=== PATIENT | female | born 1950 | race Caucasian/White ===

== ENCOUNTER 2020-05-03 12:28 | Emergency (ER) | payer MEDICARE, SELFPAY ==
[2020-05-03 12:48] VITALS: BP 140/51; BP 159/52; PULSE 94; RESP 18; TEMP 36.3; O2SAT 93; O2SAT 99; BMI 35.2
--- NOTE | 2020-05-03 12:50 | XR_ITS ---
EXAMINATION: XR CHEST CLINICAL INFORMATION: Cough. COMPARISON: None TECHNIQUE: Frontal view of the chest was obtained. FINDINGS: The lungs are well-expanded with scattered patchy opacities seen in both lungs most prominent in the right upper, right lower lobe and left lower lobe. There is haziness right lung base likely from effusion and underlying atelectasis. Heart size and pulmonary vascularity is normal. No gross bony abnormality seen. XR/XR chest 1V IMPRESSION: Diffuse patchy opacity in both lobes slightly greater on the right with likely right lower lobe effusion and/or atelectasis.
[2020-05-03 14:05] LABS: OBS Int Ctl Valid YES; OBS1 POS (NEG)
[2020-05-03 14:15] LABS: Hematocrit 24.3 % (37-47); Hemoglobin 7.1 g/dl (12.0-16.0); Mean Corpuscular HGB Conc 29.2 g/dl (31.0-35.0); Mean Corpuscular Hemoglobin 30.5 pg (27.0-33.0); Mean Corpuscular Volume 104.3 fL (80-98); Mean Platelet Volume 10.1 fL (9.4-12.3); Platelet Count 235 X10*3/uL (160-400); Red Blood Count 2.33 X10*6/uL (4.20-5.50); Red Cell Distribution Width 17.2 % (11.0-16.0); White Blood Count 8.8 X10*3/uL (4.8-10.8)
[2020-05-03 14:44] LABS: Alanine Aminotransferase 16 U/L (0-31); Albumin Level 2.5 g/dL (3.5-5.0); Alkaline Phosphatase 73 U/L (39-117); Anion Gap 10 (12-20); Aspartate Amino Transferase 11 U/L (5-31); Bilirubin Total 0.2 mg/dL (0.0-1.0); Blood Urea Nitrogen 46 mg/dL (9-16); Calcium 8.1 mg/dL (8.4-10.2); Carbon Dioxide 31 mmol/L (22-29); Chloride 108 mmol/L (96-108); Creatinine Clr Calc Pharmacy 19.9; Estimated Glomerular Filt Rate 17; Glucose Random 77 mg/dL (60-115); Potassium 4.1 mmol/l (3.3-5.1); Sodium 145 mmol/L (135-145); Total Protein 5.6 g/dL (6.5-8.0)
[2020-05-03 14:48] LABS: B Type Natriuretic Peptide 89 pg/mL (<100)
[2020-05-03 14:53] LABS: Band Neutrophils Percent 3 % (3-5); Basophils Abs Manual 0.1 X10*3/uL (0.0-0.3); Basophils Percent Manual 1 % (0-1); Eosinophils Absolute Manual 0.2 X10*3/UL (0.0-0.8); Eosinophils Percent Manual 2 % (0-4); Lymphocytes Absolute Manual 0.4 X10*3/uL (0.6-4.8); Lymphocytes Percent Manual 4 % (20-40); Metamyelocytes Absolute 0.3 X10*3/uL; Metamyelocytes Percent 3 %; Monocytes Absolute Manual 0.6 X10*3/uL (0.0-1.2); Monocytes Percent Manual 7 % (2-11); Myelocytes Absolute 0.1 X10*/uL; Myelocytes Percent 1 %; Neutrophils Absolute Manual 7.2 X10*3/uL (2.2-7.9); Neutrophils Percent Manual 79 % (45-73)
[2020-05-03 14:58] LABS: Basophilic Stippling 1+
[2020-05-03 14:59] LABS: RBC Morphology NOTED
[2020-05-03 15:00] LABS: Platelet Estimate NORMAL (NORMAL); Platelet Morphology Comment NORMAL
[2020-05-03 16:07] VITALS: BP 134/50; PULSE 87; RESP 19; TEMP 36.9
[2020-05-03 16:14] VITALS: BP 134/50; PULSE 87; RESP 20; TEMP 36.9; O2SAT 92
[2020-05-03 16:24] VITALS: BP 139/51; PULSE 85; RESP 18; TEMP 36.6
[2020-05-03 16:55] LABS: Troponin-I High Sensitivity 6.2 ng/L (<3.5-17.0)
[2020-05-03 17:15] VITALS: BP 125/56; PULSE 87; RESP 18; TEMP 36.5
[2020-05-03] MEDS: Albuterol Sulfate 90 MCG 8 GM INHALER 4 PUFF INHALE (17:20)
[2020-05-03 18:33] LABS: Hematocrit 28.5 % (37-47); Hemoglobin 8.4 g/dl (12.0-16.0); Mean Corpuscular HGB Conc 29.5 g/dl (31.0-35.0); Mean Corpuscular Hemoglobin 29.7 pg (27.0-33.0); Mean Corpuscular Volume 100.7 fL (80-98); Mean Platelet Volume 9.6 fL (9.4-12.3); Platelet Count 236 X10*3/uL (160-400); Red Blood Count 2.83 X10*6/uL (4.20-5.50); Red Cell Distribution Width 17.7 % (11.0-16.0); White Blood Count 10.1 X10*3/uL (4.8-10.8)
--- NOTE | 2020-05-03 19:00 | ED_ITS ---
HPI - Recheck/Abnormal Lab/Rx General Chief Complaint: Recheck/Abnormal Lab/Rx Stated Complaint: abnormal labs Time Seen by Provider: 05/03/20 12:49 Source: EMS Mode of arrival: EMS Limitations: no limitations History of Present Illness HPI narrative: This is a 70-year-old female [facility] has history of COPD with chronic hypoxic respiratory failure on oxygen, obstructive sleep apnea, chronic diastolic heart failure, chronic kidney disease stage 4 with chronic anemia, hypertension, diabetes, gastroesophageal reflux disease and most recently admitted to [facility] at the beginning of April 10 through 1273 COVID-19 related hypoxic/respiratory failure with acute AFib with R VR precipitated by COVID-19 and resolved she was treated there and subsequently recovered went to short-term rehab to [facility] where she is and has been there for past 1 week. States she was overall doing well and were past couple days has gradually just felt overall more weak as if she is anemic again. She has required transfusions in the past. She states she had a ?normal? bowel movement this morning describes as formed brown stool. She denies any chest pain, shortness of breath, abdominal pain, nausea vomiting or diarrhea. No other bleeding it does not appear to be on anticoagulants. She had routine CBC done at the facility today showed a hemoglobin 6.7 over hematocrit of 23. She is normally at 7.5/25. Related Data Allergies Allergy/AdvReac Type Severity Reaction Status Date / Time exenatide [From Byetta] Allergy Unknown Verified 05/03/20 12:48 gabapentin Allergy Unknown Verified 05/03/20 12:47 glipizide Allergy Depression Verified 05/03/20 12:48 metformin Allergy Unknown Verified 05/03/20 12:48 simvastatin [From Zocor] Allergy Unknown Verified 05/03/20 12:48 zolpidem [From Ambien] Allergy Unknown Verified 05/03/20 12:48 Review of Systems Review of Systems: Constitutional: No Weight loss, No Fever, No Chills, No Night Sweats, No Fatigue, No Malaise ENT/Mouth: No Hearing loss, No Ear Pain, No Nasal Congestion, No Sinus Pain, No Hoarseness, No sore throat, No Rhinorrhea, No Swallowing Difficulty Eyes: No Eye Pain, No Swelling, No Redness, No Foreign Body, No Discharge, No Vision Changes Cardiovascular: No Chest Pain, No SOB, No Dyspnea on Exertion, No Orthopnea, No Edema, No Palpitations Respiratory: No Cough, No Sputum, No Wheezing, No Smoke Exposure, No Dyspnea Gastrointestinal: No Nausea, No Vomiting, No Diarrhea, No Constipation, No abdominal Pain, No Hematochezia, No Melena Genitourinary: no irregular bleeding, No Dysuria, No Urinary Frequency, No Hematuria, No Urinary Incontinence, No Urgency, No Flank Pain Musculoskeletal: No joint pain, No Myalgias, No Joint Swelling Skin: No Skin Lesions, No rash Neuro: + Weakness, No Numbness, No Paresthesias, No Loss of Consciousness, No Dizziness, No Headache Psych: No Social Issues Heme/Lymph: No Bruising, No Bleeding,No Lymphadenopathy Endocrine: No Polyuria, No Polydipsia, No Temperature Intolerance Yes all other systems are reviewed and are negative [facility] Past Medical History Medical History (Updated 05/03/20 @ 19:24 by Erasmo Ham NP) Acute kidney failure Anemia Atrial fibrillation Chronic kidney disease (CKD) COPD (chronic obstructive pulmonary disease) COVID-19 Diabetes GERD (gastroesophageal reflux disease) Hyperlipidemia Hypernatremia Hypokalemia Hypotension Morbid obesity Obstructive sleep apnea Spontaneous ecchymosis Viral pneumonia Social History Social History Smoked in Last 30 Days: No Use of substances other than those prescribed or required for medical reasons: No Advance Directives: No Advance Directives Information Provided: No Physical Exam Vital Signs: Vital Signs: Last Vital Signs Temp 97.7 F 05/03/20 17:15 Pulse 87 05/03/20 17:15 Resp 18 05/03/20 17:15 BP 125/56 L 05/03/20 17:15 Pulse Ox 92 05/03/20 16:14 Body Mass Index 35.2 Reviewed Const: Other: Appears older than stated age, obese General: cooperative; No acute distress or intoxicated appearing Nutritional Appearance: average body habitus Orientation/consciousness: patient oriented x3 HENMT: Head: Yes normal to inspection Ears: hearing grossly normal bilat erally Eyes: General: appearance normal, both eyes and all related structures Visual Treviño: normal visual treviño by confrontation Neck: Neck: Yes normal visual inspection and No tender Thyroid: Thyroid normal Chest: Chest palpation & inspection: normal inspection of the chest Resp: Effort & Inspection: normal respiratory effort Auscultation: clear to auscultation bilaterally Cardio: Jugular venous distension: no JVD Rhythm: regular rhythm Heart sounds: S1 normal heart sound present and S2 normal heart sound present GI: Inspection: Yes normal to inspection Percussion: Yes normal to percussion Auscultation: normal bowel sounds : General: Yes no CVA tenderness Back/Spine/Pelvis: Back: no CVA tenderness Skin: General skin exam: no rashes or lesions noted Neuro: General: patient oriented x3 Extrem: General: Yes normal to inspection Course Course Course Narrative: Will get confirmatory CBC. Check electrolytes EKG, cardiac enzyme. She appears in no distress. She denies any pain or discomfort. Occult stool done at bedside color was around. There is no overt bleeding. It was weakly positive. Sent to lab for analysis. Plan and findings reviewed Reevaluation(s) Reevaluation #1: Repeat CBC 7 0.05/23 given her some symptomatic will go ahead and transfuse her with 1 unit of blood and repeat. Reevaluation #2: Received gradual 1 unit of blood over 3-1/2 hours tolerated this very well. No signs or symptoms of fluid overload. She reports she feels ?great?. No other complaints. Repeat CBC at 18:21 shows hemoglobin of 8.4 over hematocrit of 28.5. At this point she feels better she is at baseline. Offers no other complaints. Will discharge back to the facility refer to GI for possible scope. MDM - Recheck/Abnormal Lab/Rx MDM Narrative Medical decision making narrative: Copies of labs will be) for facility with return. Medical Records Attestation: I reviewed the patient's medical records. Lab Data Attestation: I reviewed the patient's lab results. Lab results narrative: Medical records requested from [facility] 15 pages of transfer summary were all read by me/reviewed. And sign to be processed for medical records. Result diagrams: 05/03/20 18:21 05/03/20 13:59 Labs: Lab Results 05/03/20 05/03/20 05/03/20 Range/Units 13:59 13:59 13:59 WBC 8.8 (4.8-10.8) X10*3/uL RBC 2.33 L (4.20-5.50) X10*6/uL Hgb 7.1 L (12.0-16.0) g/dl Hct 24.3 L (37-47) % MCV 104.3 H (80-98) fL MCH 30.5 (27.0-33.0) pg MCHC 29.2 L (31.0-35.0) g/dl RDW 17.2 H (11.0-16.0) % Plt Count 235 (160-400) X10*3/uL MPV 10.1 (9.4-12.3) fL Immature Gran % (Auto) Cancelled Neut % (Auto) Cancelled Lymph % (Auto) Cancelled [place] % (Auto) Cancelled Eos % (Auto) Cancelled Baso % (Auto) Cancelled Lymph # (Auto) Cancelled [place] # (Auto) Cancelled Eos # (Auto) Cancelled Baso # (Auto) Cancelled Abs Immat Gran (auto) Cancelled Absolute Neuts (auto) Cancelled Absolute Nucleated RBC 0.000 (0.0-0.012) X10*3/uL Nucleated RBC % (auto) 0.0 (0.0-0.2) /100WBC Neutrophils % (Manual) 79 H (45-73) % Band Neutrophils % 3 (3-5) % Lymphocytes % (Manual) 4 L (20-40) % Monocytes % (Manual) 7 (2-11) % Eosinophils % (Manual) 2 (0-4) % Basophils % (Manual) 1 (0-1) % Metamyelocytes % 3 % Myelocytes % 1 % Abs Neuts (Manual) 7.2 (2.2-7.9) X10*3/uL Lymphocytes # (Manual) 0.4 L (0.6-4.8) X10*3/uL Monocytes # (Manual) 0.6 (0.0-1.2) X10*3/uL Eosinophils # (Manual) 0.2 (0.0-0.8) X10*3/UL Basophils # (Manual) 0.1 (0.0-0.3) X10*3/uL Metamyelocytes # 0.3 X10*3/uL Myelocytes # 0.1 X10*/uL Platelet Estimate NORMAL (NORMAL) Plt Morphology Comment NORMAL RBC Morphology NOTED Basophilic Stippling 1+ Sodium 145 (135-145) mmol/L Potassium 4.1 (3.3-5.1) mmol/l Chloride 108 (96-108) mmol/L Carbon Dioxide 31 H (22-29) mmol/L Anion Gap 10 L (12-20) BUN 46 H (9-16) mg/dL Creatinine 2.73 H (0.5-1.4) mg/dL Estim Creat Clear Calc 19.9 Estimated GFR 17 Random Glucose 77 (60-115) mg/dL Calcium 8.1 L (8.4-10.2) mg/dL Total Bilirubin 0.2 (0.0-1.0) mg/dL AST 11 (5-31) U/L ALT 16 (0-31) U/L Alkaline Phosphatase 73 (39-117) U/L Troponin I High Sens 6.2 (<3.5-17.0) ng/L B-Natriuretic Peptide 89 (<100) pg/mL Total Protein 5.6 L (6.5-8.0) g/dL Albumin 2.5 L (3.5-5.0) g/dL Stool Occult Blood (NEG) Blood Type Antibody Screen Crossmatch 05/03/20 05/03/20 05/03/20 Range/Units 13:59 14:52 18:21 WBC 10.1 (4.8-10.8) X10*3/uL RBC 2.83 L D (4.20-5.50) X10*6/uL Hgb 8.4 L (12.0-16.0) g/dl Hct 28.5 L (37-47) % MCV 100.7 H (80-98) fL MCH 29.7 (27.0-33.0) pg MCHC 29.5 L (31.0-35.0) g/dl RDW 17.7 H (11.0-16.0) % Plt Count 236 (160-400) X10*3/uL MPV 9.6 (9.4-12.3) fL Immature Gran % (Auto) Cancelled Neut % (Auto) Cancelled Lymph % (Auto) Cancelled [place] % (Auto) Cancelled Eos % (Auto) Cancelled Baso % (Auto) Cancelled Lymph # (Auto) Cancelled [place] # (Auto) Cancelled Eos # (Auto) Cancelled Baso # (Auto) Cancelled Abs Immat Gran (auto) Cancelled Absolute Neuts (auto) Cancelled Absolute Nucleated RBC 0.000 (0.0-0.012) X10*3/uL Nucleated RBC % (auto) 0.0 (0.0-0.2) /100WBC Neutrophils % (Manual) (45-73) % Band Neutrophils % (3-5) % Lymphocytes % (Manual) (20-40) % Monocytes % (Manual) (2-11) % Eosinophils % (Manual) (0-4) % Basophils % (Manual) (0-1) % Metamyelocytes % % Myelocytes % % Abs Neuts (Manual) (2.2-7.9) X10*3/uL Lymphocytes # (Manual) (0.6-4.8) X10*3/uL Monocytes # (Manual) (0.0-1.2) X10*3/uL Eosinophils # (Manual) (0.0-0.8) X10*3/UL Basophils # (Manual) (0.0-0.3) X10*3/uL Metamyelocytes # X10*3/uL Myelocytes # X10*/uL Platelet Estimate (NORMAL) Plt Morphology Comment RBC Morphology Basophilic Stippling Sodium (135-145) mmol/L Potassium (3.3-5.1) mmol/l Chloride (96-108) mmol/L Carbon Dioxide (22-29) mmol/L Anion Gap (12-20) BUN (9-16) mg/dL Creatinine (0.5-1.4) mg/dL Estim Creat Clear Calc Estimated GFR Random Glucose (60-115) mg/dL Calcium (8.4-10.2) mg/dL Total Bilirubin (0.0-1.0) mg/dL AST (5-31) U/L ALT (0-31) U/L Alkaline Phosphatase (39-117) U/L Troponin I High Sens (<3.5-17.0) ng/L B-Natriuretic Peptide (<100) pg/mL Total Protein (6.5-8.0) g/dL Albumin (3.5-5.0) g/dL Stool Occult Blood POS (NEG) Blood Type O Positive Antibody Screen NEGATIVE Crossmatch See Detail Imaging Data Chest x-ray: Radiologist's impression: [address] [address] XRay Report Signed Patient: ABHINAV TEE#: [id number] : [id number]:[id number] Age/Sex: 70 / FADM Date: 05/03/20 Loc: HO.ED Attending Dr: Ordering Physician: Erasmo Ham NP Date of Service: 05/03/20 Procedure(s): XR chest 1V Accession Number(s): [id number] cc: Erasmo Ham [employer]WORK[employer]~ EXAMINATION: XR CHEST CLINICAL INFORMATION: Cough. COMPARISON: None TECHNIQUE: Frontal view of the chest was obtained. FINDINGS: The lungs are well-expanded with scattered patchy opacities seen in both lungs most prominent in the right upper, right lower lobe and left lower lobe. There is haziness right lung base likely from effusion and underlying atelectasis. Heart size and pulmonary vascularity is normal. No gross bony abnormality seen. XR/XR chest 1V IMPRESSION: Diffuse patchy opacity in both lobes slightly greater on the right with likely right lower lobe effusion and/or atelectasis. Dictated By:CAITLIN GODFREY MD Signed By:<Electronically signed by CAITLIN GODFREY MD in OV>05/03/20 1325 DD/ 1250 TD/TT: Bank Cashier: ANTONY ECG Data Interpretation: Normal sinus rhythm Rate 88 No acute ectopy. No acute ST segment changes Discharge Plan Discharge Clinical Impression: Symptomatic anemia, Anemia due to chronic kidney disease, Fecal occult blood test positive Patient Disposition: Xfer [facility] Instructions: Chronic Kidney Disease (ED), Anemia (ED) Additional Instructions: Margaret Tee was evaluated for generalized weakness in the setting of anemia she had a H&H of 6.7/23 this morning She was evaluated and found to have a H&H of 7.1/24.3 she was subsequently given 1 unit of RBC She had a repeat blood test that showed a CBC of 8.4/28.5 Her baseline is around 7.5/ 24 She did have week positive occult stool. Referral to GI for colonoscopy. She is stable at this time at her baseline will be returned back to the facility.
[2020-05-03 19:06] LABS: Band Neutrophils Percent 11 % (3-5); Eosinophils Absolute Manual 0.3 X10*3/UL (0.0-0.8); Eosinophils Percent Manual 3 % (0-4); Lymphocytes Absolute Manual 1.2 X10*3/uL (0.6-4.8); Lymphocytes Percent Manual 12 % (20-40); Metamyelocytes Absolute 0.3 X10*3/uL; Metamyelocytes Percent 3 %; Monocytes Absolute Manual 0.6 X10*3/uL (0.0-1.2); Monocytes Percent Manual 6 % (2-11); Neutrophils Absolute Manual 7.7 X10*3/uL (2.2-7.9); Neutrophils Percent Manual 65 % (45-73); RBC Morphology NOTED
[2020-05-03 19:07] LABS: Macrocytosis 1+; Polychromasia 1+
[2020-05-03 19:08] LABS: Platelet Estimate NORMAL (NORMAL); Platelet Morphology Comment NORMAL
--- NOTE | 2020-05-06 16:51 | PC.NURSE ---
pt 94.3F rectally, no bear hugger available at this time. warmed with blankets, transferred promptly to ICU. blanchable discolouration around buttocks, area unopened at this time.
== END 2020-05-03 20:29 | disposition skilled nursing facility (03) ==
PROVIDERS: Nurse Practitioner Primary Care; Emergency Provider Emergency Medicine; PCP Internal Medicine
DX: R19.5 Other fecal abnormalities (principal); D63.1 Anemia in chronic kidney disease; E11.22 Type 2 diabetes mellitus with diabetic chronic kidney disease; I12.9 Hypertensive chronic kidney disease with stage 1 through stage 4 chronic kidney disease, or unspecified chronic kidney disease; N18.9 Chronic kidney disease, unspecified; I48.91 Unspecified atrial fibrillation; Z86.16 Personal history of COVID-19; Z87.01 Personal history of pneumonia (recurrent); Z79.84 Long term (current) use of oral hypoglycemic drugs; Z79.899 Other long term (current) drug therapy
CPT/HCPCS: 36415; 36430; 71045; 80053; 82272; 83880; 84484; 85007; 85027; 86850; 86900; 86901; 86920; 99284; 99285; P9016

== ENCOUNTER 2020-05-06 12:33 | Inpatient (IN) | payer MEDICARE, MEDICAID, SELFPAY ==
[2020-05-06] VITALS (19 sets, daily range): BP systolic 101–163; BP diastolic 34–70; PULSE 62–82; RESP 18–26; TEMP 35.6–37.4; O2SAT 93–100; BMI 36.6; BMI 36.9
--- NOTE | 2020-05-06 | XR_ITS ---
EXAMINATION: XR CHEST CLINICAL INFORMATION: Endotracheal and nasogastric tube placement. COMPARISON: Chest radiograph 05/06/2020 TECHNIQUE: Portable upright AP view of the chest is performed at approximately 1500 hours. FINDINGS: There is an endotracheal tube with tip 4.3 cm above sen. Nasogastric tube is also present, seen at the level thoracoabdominal junction and then extending beyond the inferior film margin [id number]. Right airspace consolidation and volume loss is similar to prior radiograph. There is rightward shift of the mediastinum and heart again seen. There is coarsening bronchovascular markings left lower zone again seen. XR/XR chest 1V IMPRESSION: 1. ET tube 4.3 cm above sen. 2. NG tube extending below diaphragm. 3. No significant change right chest consolidation and volume loss.
--- NOTE | 2020-05-06 | XR_ITS ---
EXAMINATION: XR CHEST CLINICAL INFORMATION: Hypoxia COMPARISON: Chest x-ray 05/06/2020, 2:53 PM TECHNIQUE: Frontal portable view of the chest was obtained. 5:37 PM FINDINGS: Tubes and lines: 1. Endotracheal tube 3.5 cm above the sen. 2. Nasogastric tube tip in stomach. Left lung is normally aerated. There is improving aeration of the right lung since prior chest x-ray today. The volume of the right pleural effusion has diminished. There is still blunting the costophrenic angle and silhouetting of the right diaphragm however. XR/XR chest 1V IMPRESSION: 1. Endotracheal tube 3.5 cm above the sen. 2. Nasogastric tube tip in stomach. 3. Improved aeration of right lung since prior chest x-ray today. There is persistent density at the right lung base however due to pleural effusion and probable consolidation/atelectasis.
--- NOTE | 2020-05-06 13:00 | PC.NURSE ---
PT ARRVIES FROM [facility] AFTER REPORTS OF LETHARGY X2 DAYS. ON ARRIVAL, PT RESPONSIVE ONLY TO NOXIOUS STIMULI. GURGLING SOUNDS AUSCULTATED THROUGHOUT. HX COPD, NO SUPPLEMENTAL O2 AT BASELINE THOUGH REPORTS ON 80% ON RA FROM SNF. 88-91% ON 4L. PLACED ON BIPAP BY RT BRIEFLY.
--- NOTE | 2020-05-06 13:04 | XR_ITS ---
EXAMINATION: XR CHEST CLINICAL INFORMATION: Probable pneumonia. Recent imaging. Follow-up. COMPARISON: Portable chest 05/03/2020 TECHNIQUE: Portable upright AP view of the chest was obtained. FINDINGS: There is increased opacity right hemithorax with some apical sparing when compared with prior study 05/03/2020. There is associated volume loss with rightward bowing trachea column consistent with atelectatic component to the airspace disease and possible effusion. There is subsegmental atelectasis again seen left base. The vascularity is normal. XR/XR chest 1V IMPRESSION: 1. Significant increased opacity right hemithorax when compared with recent study 05/03/2020. There is associated volume loss consistent with element of superimposed atelectasis to the prior airspace disease and probable effusion. 2. Subsegmental atelectasis left base.
--- NOTE | 2020-05-06 13:08 | ECG_ITS ---
Test Reason : SOB Blood Pressure : / mmHG Vent. Rate : 076 BPM Atrial Rate : 076 BPM P-R Int : 184 ms QRS Dur : 114 ms QT Int : 412 ms P-R-T Axes : 052 -27 051 degrees QTc Int : 463 ms Normal sinus rhythm Incomplete left bundle branch block Borderline ECG No previous ECGs available Referred By: Joe Vergara Electronically Signed By:Vinod Jurado
[2020-05-06 13:22] LABS: Hematocrit 29.1 % (37-47); Hemoglobin 8.3 g/dl (12.0-16.0); Mean Corpuscular HGB Conc 28.5 g/dl (31.0-35.0); Mean Corpuscular Hemoglobin 29.9 pg (27.0-33.0); Mean Corpuscular Volume 104.7 fL (80-98); Mean Platelet Volume 10.3 fL (9.4-12.3); NRBC Pct Auto 0.2 /100WBC (0.0-0.2); Platelet Count 186 X10*3/uL (160-400); Red Blood Count 2.78 X10*6/uL (4.20-5.50); Red Cell Distribution Width 17.4 % (11.0-16.0)
[2020-05-06] MEDS: methylPREDNISolone Sod Succ/PF 125 MG/2 ML VIAL IVPUSH (13:28)
[2020-05-06] MEDS: levoFLOXacin/D5W 500 MG/100 ML PIGGYBACK 100 MG IV (13:28)
[2020-05-06] MEDS: Magnesium Sulfate/H2O 2 GM/50 ML PIGGYBACK IV (13:28)
--- NOTE | 2020-05-06 13:28 | ED.GENADULT ---
HPI - General Adult General Chief complaint: Altered Mental Status Stated complaint: SOB 98%3L,LETHARGY Time Seen by Provider: 05/06/20 13:02 Source: RN notes reviewed Mode of arrival: EMS Limitations: altered mental status History of Present Illness HPI narrative: Patient presents to the ED with altered mental status. Patient cannot give history. Patient could just respond to painful/ and slight verbal stimuli. Related Data Home Medications Medication Instructions Recorded Confirmed albuterol sulfate [ProAir HFA] 2 puff INHALATION Q4-6H PRN 05/06/20 05/06/20 amlodipine 10 mg PO DAILY 05/06/20 05/06/20 atorvastatin 20 mg PO BEDTIME 05/06/20 05/06/20 budesonide-formoterol [Symbicort] 2 puff INHALATION BID 05/06/20 05/06/20 furosemide 40 mg PO DAILY 05/06/20 05/06/20 glucagon [Baqsimi] 3 mg INTRANASAL 05/06/20 insulin aspart U-100 [Novolog 0 unit SUBCUT TID 05/06/20 05/06/20 Flexpen U-100 Insulin] insulin glargine [Lantus Solostar 10 unit SUBCUT QAM 05/06/20 05/06/20 U-100 Insulin] metoprolol succinate 50 mg PO DAILY 05/06/20 05/06/20 montelukast 10 mg PO DAILY 05/06/20 05/06/20 omeprazole 20 mg PO DAILY 05/06/20 05/06/20 tiotropium bromide [Spiriva with 1 cap INHALATION DAILY 05/06/20 05/06/20 HandiHaler] Allergies Allergy/AdvReac Type Severity Reaction Status Date / Time exenatide [From Byetta] Allergy Unknown Verified 05/06/20 12:49 gabapentin Allergy Unknown Verified 05/06/20 12:49 glipizide Allergy Depression Verified 05/06/20 12:49 metformin Allergy Unknown Verified 05/06/20 12:49 simvastatin [From Zocor] Allergy Unknown Verified 05/06/20 12:49 zolpidem [From Ambien] Allergy Unknown Verified 05/06/20 12:49 Review of Systems Review of Systems: Yes Unobtainable due to mental status (Hypoxic and lethargic) PMFSH Past Medical History Medical History Acute kidney failure Anemia Atrial fibrillation Chronic kidney disease (CKD) COPD (chronic obstructive pulmonary disease) COVID-19 Diabetes GERD (gastroesophageal reflux disease) Hyperlipidemia Hypernatremia Hypokalemia Hypotension Morbid obesity Obstructive sleep apnea Spontaneous ecchymosis Viral pneumonia Social History Social History Advance Directives: No Advance Directives Information Provided: No Physical Exam Vital Signs: Vital Signs: Last Vital Signs Pulse 67 05/06/20 17:00 Resp 24 H 05/06/20 17:00 BP 128/59 L 05/06/20 17:00 Pulse Ox 100 05/06/20 17:00 Body Mass Index 36.9 Const: General: acute distress and lethargic Orientation/consciousness: lethargic HENMT: Head: Yes normal to inspection, Yes No palpable skull fracture present, Yes normocephalic and Yes atraumatic Eyes: General: appearance normal, both eyes and all related structures Neck: Neck: Yes normal visual inspection, Yes full ROM, Yes no lymphadenopathy and Yes no meningeal signs Chest: Chest palpation & inspection: normal inspection of the chest Resp: Other: Patient is lethargic Effort & Inspection: decreased respiratory effort Auscultation: diminished lung sounds Cardio: Jugular venous distension: no JVD Heart sounds: S1 normal heart sound present and S2 normal heart sound present GI: Inspection: Yes normal to inspection Palpation (GI): Soft to palpation, not firm, nontender, no guarding and not rigid : General: Yes no CVA tenderness Back/Spine/Pelvis: Back: no CVA tenderness Skin: General skin exam: no rashes or lesions noted Neuro: Other: Altered mental status General: no meningeal signs Extrem: General: Yes normal to inspection and Yes full ROM Psych: Other: Altered mental status and a charge a Course Course Course Narrative: Immediate action was taking with nursing staff. IV line was placed and labs were drawn including BMP, troponin, ABG, blood cultures, basic labs, troponin, and lactic acid. Immediately patient was started on Levaquin, Solu-Medrol, albuterol, and magnesium. Patient was placed on BiPAP by respiratory therapist. Reevaluation(s) Reevaluation #1: ABG showed CO2 of 93 and pH is 7.10. Patient was intubated after given etomidate and rocuronium. Patient placed on Versed drip. Patient was evaluated by Dr. Burk of the ICU, and he does not believe patient has an effusion and just has a aspiration pneumonia. He reviewed the chest x-ray which stated with pneumonia possible effusion. He agrees patient to go to ICU. Once again he did not believe patient is having effusion. Time: 15:44 Reevaluation #2: Patient is COVID positive. ICU attending Dr. Burk of ICU recommends us to stop the IV fluids. Time: 16:18 Medical Decision Making MDM Narrative Medical decision making narrative: Acute respiratory failure. COVID 19 Lab Data Result diagrams: 05/06/20 13:09 05/06/20 15:14 Labs: Lab Results 05/06/20 05/06/20 05/06/20 Range/Units 13:07 13:08 13:09 WBC 13.0 H (4.8-10.8) X10*3/uL RBC 2.78 L (4.20-5.50) X10*6/uL Hgb 8.3 L (12.0-16.0) g/dl Hct 29.1 L (37-47) % MCV 104.7 H (80-98) fL MCH 29.9 (27.0-33.0) pg MCHC 28.5 L (31.0-35.0) g/dl RDW 17.4 H (11.0-16.0) % Plt Count 186 (160-400) X10*3/uL MPV 10.3 (9.4-12.3) fL Immature Gran % (Auto) Cancelled Neut % (Auto) Cancelled Lymph % (Auto) Cancelled [facility] % (Auto) Cancelled Eos % (Auto) Cancelled Baso % (Auto) Cancelled Lymph # (Auto) Cancelled [facility] # (Auto) Cancelled Eos # (Auto) Cancelled Baso # (Auto) Cancelled Abs Immat Gran (auto) Cancelled Absolute Neuts (auto) Cancelled Absolute Nucleated RBC 0.020 H (0.0-0.012) X10*3/uL Nucleated RBC % (auto) 0.2 (0.0-0.2) /100WBC Neutrophils % (Manual) 88 H (45-73) % Band Neutrophils % 4 (3-5) % Lymphocytes % (Manual) 4 L (20-40) % Monocytes % (Manual) 4 (2-11) % Abs Neuts (Manual) 12.0 H (2.2-7.9) X10*3/uL Lymphocytes # (Manual) 0.5 L (0.6-4.8) X10*3/uL Monocytes # (Manual) 0.5 (0.0-1.2) X10*3/uL Platelet Estimate NORMAL (NORMAL) Plt Morphology Comment NORMAL RBC Morphology NOTED Polychromasia 1+ Macrocytosis 1+ PT (10.8-13.0) SEC INR (0.9-1.1) ABG pH (7.35-7.45) ABG pCO2 (32-45) mmhg ABG pO2 (83-108) mmhg ABG HCO3 (22-26) mmol/l ABG O2 Saturation % ABG Base Excess Oxygen Given Sodium Potassium Chloride Carbon Dioxide Anion Gap BUN Creatinine Estim Creat Clear Calc Estimated GFR POC Glucose (60-115) mg/dL Random Glucose Lactic Acid 0.3 L (0.5-2.0) mmol/L Calcium Total Bilirubin AST ALT Alkaline Phosphatase Lactate Dehydrogenase Troponin I High Sens 5.8 (<3.5-17.0) ng/L B-Natriuretic Peptide 204 H (<100) pg/mL Total Protein Albumin Coronavirus (PCR) (Negative) Influenza Type A (PCR) (Negative) Influenza Type B (PCR) (Negative) RSV RNA Qual (PCR) (Negative) 05/06/20 05/06/20 05/06/20 Range/Units 13:09 13:09 13:25 WBC (4.8-10.8) X10*3/uL RBC (4.20-5.50) X10*6/uL Hgb (12.0-16.0) g/dl Hct (37-47) % MCV (80-98) fL MCH (27.0-33.0) pg MCHC (31.0-35.0) g/dl RDW (11.0-16.0) % Plt Count (160-400) X10*3/uL MPV (9.4-12.3) fL Immature Gran % (Auto) Neut % (Auto) Lymph % (Auto) [facility] % (Auto) Eos % (Auto) Baso % (Auto) Lymph # (Auto) [facility] # (Auto) Eos # (Auto) Baso # (Auto) Abs Immat Gran (auto) Absolute Neuts (auto) Absolute Nucleated RBC (0.0-0.012) X10*3/uL Nucleated RBC % (auto) (0.0-0.2) /100WBC Neutrophils % (Manual) (45-73) % Band Neutrophils % (3-5) % Lymphocytes % (Manual) (20-40) % Monocytes % (Manual) (2-11) % Abs Neuts (Manual) (2.2-7.9) X10*3/uL Lymphocytes # (Manual) (0.6-4.8) X10*3/uL Monocytes # (Manual) (0.0-1.2) X10*3/uL Platelet Estimate (NORMAL) Plt Morphology Comment RBC Morphology Polychromasia Macrocytosis PT 12.2 (10.8-13.0) SEC INR 1.0 (0.9-1.1) ABG pH 7.10 L* (7.35-7.45) ABG pCO2 93 H* (32-45) mmhg ABG pO2 100 (83-108) mmhg ABG HCO3 28 H (22-26) mmol/l ABG O2 Saturation 97.3 % ABG Base Excess -2.9 Oxygen Given 4 L Sodium Cancelled Potassium Cancelled Chloride Cancelled Carbon Dioxide Cancelled Anion Gap Cancelled BUN Cancelled Creatinine Cancelled Estim Creat Clear Calc Cancelled Estimated GFR Cancelled POC Glucose (60-115) mg/dL Random Glucose Cancelled Lactic Acid (0.5-2.0) mmol/L Calcium Cancelled Total Bilirubin Cancelled AST Cancelled ALT Cancelled Alkaline Phosphatase Cancelled Lactate Dehydrogenase Cancelled Troponin I High Sens (<3.5-17.0) ng/L B-Natriuretic Peptide (<100) pg/mL Total Protein Cancelled Albumin Cancelled Coronavirus (PCR) (Negative) Influenza Type A (PCR) (Negative) Influenza Type B (PCR) (Negative) RSV RNA Qual (PCR) (Negative) 05/06/20 05/06/20 Range/Units 13:35 13:50 WBC (4.8-10.8) X10*3/uL RBC (4.20-5.50) X10*6/uL Hgb (12.0-16.0) g/dl Hct (37-47) % MCV (80-98) fL MCH (27.0-33.0) pg MCHC (31.0-35.0) g/dl RDW (11.0-16.0) % Plt Count (160-400) X10*3/uL MPV (9.4-12.3) fL Immature Gran % (Auto) Neut % (Auto) Lymph % (Auto) [facility] % (Auto) Eos % (Auto) Baso % (Auto) Lymph # (Auto) [facility] # (Auto) Eos # (Auto) Baso # (Auto) Abs Immat Gran (auto) Absolute Neuts (auto) Absolute Nucleated RBC (0.0-0.012) X10*3/uL Nucleated RBC % (auto) (0.0-0.2) /100WBC Neutrophils % (Manual) (45-73) % Band Neutrophils % (3-5) % Lymphocytes % (Manual) (20-40) % Monocytes % (Manual) (2-11) % Abs Neuts (Manual) (2.2-7.9) X10*3/uL Lymphocytes # (Manual) (0.6-4.8) X10*3/uL Monocytes # (Manual) (0.0-1.2) X10*3/uL Platelet Estimate (NORMAL) Plt Morphology Comment RBC Morphology Polychromasia Macrocytosis PT (10.8-13.0) SEC INR (0.9-1.1) ABG pH (7.35-7.45) ABG pCO2 (32-45) mmhg ABG pO2 (83-108) mmhg ABG HCO3 (22-26) mmol/l ABG O2 Saturation % ABG Base Excess Oxygen Given Sodium Potassium Chloride Carbon Dioxide Anion Gap BUN Creatinine Estim Creat Clear Calc Estimated GFR POC Glucose 153 H (60-115) mg/dL Random Glucose Lactic Acid (0.5-2.0) mmol/L Calcium Total Bilirubin AST ALT Alkaline Phosphatase Lactate Dehydrogenase Troponin I High Sens (<3.5-17.0) ng/L B-Natriuretic Peptide (<100) pg/mL Total Protein Albumin Coronavirus (PCR) POSITIVE A (Negative) Influenza Type A (PCR) NEGATIVE (Negative) Influenza Type B (PCR) NEGATIVE (Negative) RSV RNA Qual (PCR) NEGATIVE (Negative) ECG Data Interpretation: Normal sinus rhythm. Ventricular rate 74. ME interval 184. Incomplete bundle branch block. QTC 463. Negative STEMI Critical Care Time Critical Care Time Critical Care Time: Yes Total Critical Care Time: 60 Attestation: Patient presents to the ED lethargic, altered mental status, and hypoxic. Patient was placed on BiPAP and started on Solu-Medrol, magnesium, Levaquin, and albuterol/Atrovent in BiPAP. ABG was done which showed CO2 of 93. Patient was then intubated due to high levels of CO2. Etomidate and rocuronium was given. Patient placed on Versed drip. Dr. Powers off of ICU came and evaluated patient and did not believe it was in the efffusion and just an aspiration pneumonia. Patient to be admitted to ICU. Discharge Plan Discharge Clinical Impression: COVID-19, Acute respiratory distress syndrome (ARDS) Patient Disposition: Admitted As Inpatient Interventions: Admission Worksheet (ED) Last Done: 05/06/20 16:37 Discharge Date/Time: 05/06/20 16:38
[2020-05-06 13:31] LABS: Pt Ventilation O2% 4 L
[2020-05-06 13:34] LABS: Prothrombin Time 12.2 SEC (10.8-13.0)
[2020-05-06 13:39] LABS: Base Excess ABG -2.9; HCO3 ABG 28 mmol/l (22-26); Oxygen Saturation ABG 97.3 %; PO2 ABG 100 mmhg (83-108)
[2020-05-06 13:40] LABS: Glucose, Whole Blood 153 mg/dL (60-115)
[2020-05-06 13:42] LABS: Lactic Acid 0.3 mmol/L (0.5-2.0)
[2020-05-06 13:44] LABS: ABG PCO2 93 mmhg (32-45)
[2020-05-06 13:54] LABS: B Type Natriuretic Peptide 204 pg/mL (<100); Troponin-I High Sensitivity 5.8 ng/L (<3.5-17.0)
[2020-05-06] MEDS: Etomidate 20 MG/10 ML VIAL 27.51 MG IVPUSH (13:58)
[2020-05-06] MEDS: Rocuronium Bromide 50 MG/5 ML VIAL IVPUSH (13:59)
[2020-05-06 14:03] LABS: Band Neutrophils Percent 4 % (3-5); Lymphocytes Absolute Manual 0.5 X10*3/uL (0.6-4.8); Lymphocytes Percent Manual 4 % (20-40); Monocytes Absolute Manual 0.5 X10*3/uL (0.0-1.2); Monocytes Percent Manual 4 % (2-11); Neutrophils Percent Manual 88 % (45-73)
[2020-05-06 14:04] LABS: Platelet Estimate NORMAL (NORMAL); Platelet Morphology Comment NORMAL
[2020-05-06 14:05] LABS: Macrocytosis 1+; Polychromasia 1+; RBC Morphology NOTED
--- NOTE | 2020-05-06 14:21 | PC.NURSE ---
[facility]ATI BLANKENSHIP AND DR GARCIA IN FOR ETT PLACEMENT. 20MG ETOMIDATE & 50MG ISABELLE ADMINISTERED.. + COLOUR CHANGE, 23 @ LIP, 7.5 ET TUBE. #20S IN BILAT AC'S. PRESSURES SOFT.
--- NOTE | 2020-05-06 14:25 | PC.NURSE ---
ADDENDUM TO PREVIOUS NOTE, ETT PLACED AT 1400H
[2020-05-06 14:36] LABS: Influenza A PCR NEGATIVE (Negative); Influenza B PCR NEGATIVE (Negative); Resp Syncy Virus RNA Qual PCR NEGATIVE (Negative); SARS COV2 PCR INHOUSE POSITIVE (Negative)
[2020-05-06] MEDS: Midazolam HCl/PF 2 MG/2 ML VIAL IVPUSH (14:48)
--- NOTE | 2020-05-06 15:05 | PC.RT ---
Pt came in with EMS. very sleepy ABGs drawn PH 7.20 CO2 93 PaO2 100, becoming more lethargic. Chest Xray shows PNA. Placed on BIPAP but min. VTs reached, VT 250 RR 35. MD intubated placed on PC to obtain volumes. CPT done per ICU MD. lavage and suctioned small amount of thick cream sputum. Pt recently seen for aspiration PNA
[2020-05-06] MEDS: Albuterol/Iprat 2.5/0.5MG 3 ML AMPUL.NEB INHALE (15:09)
--- NOTE | 2020-05-06 15:18 | PC.NURSE ---
TIDAL VOLUMES NOW IN 400S FOLLOWING CPT. SBPS NOW IN 130S
--- NOTE | 2020-05-06 15:35 | PC.NURSE ---
propofol gtt started ap approx 1440h
[2020-05-06] MEDS: Albumin Human 25 % 100 ML IV (15:40)
[2020-05-06 15:58] LABS: B Type Natriuretic Peptide 136 pg/mL (<100); Troponin-I High Sensitivity 4.9 ng/L (<3.5-17.0)
[2020-05-06 16:00] LABS: Alanine Aminotransferase 12 U/L (0-31); Albumin Level 2.4 g/dL (3.5-5.0); Alkaline Phosphatase 68 U/L (39-117); Anion Gap 13 (12-20); Aspartate Amino Transferase 16 U/L (5-31); Bilirubin Total 0.3 mg/dL (0.0-1.0); Blood Urea Nitrogen 51 mg/dL (9-16); Carbon Dioxide 28 mmol/L (22-29); Chloride 109 mmol/L (96-108); Creatinine Clr Calc Pharmacy 18.3; Estimated Glomerular Filt Rate 15; Glucose Random 177 mg/dL (60-115); Lactate Dehydrogenase 311 U/L (122-220); Potassium 4.7 mmol/l (3.3-5.1); Sodium 145 mmol/L (135-145); Total Protein 5.6 g/dL (6.5-8.0)
[2020-05-06 16:12] LABS: Ferritin 419 ng/mL (10-250)
[2020-05-06 16:14] LABS: Procalcitonin 0.32 ng/mL
[2020-05-06 16:25] LABS: Pt Ventilation O2% 50%
[2020-05-06 16:30] LABS: ABG PCO2 58 mmhg (32-45); Base Excess ABG 0.2; HCO3 ABG 27 mmol/l (22-26); PO2 ABG 64 mmhg (83-108); pH ABG 7.29 (7.35-7.45)
[2020-05-06 16:31] LABS: Blood Gas Serial # 5414; Oxygen Saturation ABG 94.8 %
[2020-05-06] MEDS: Heparin Sodium,Porcine 5,000 UNIT/ML VIAL 5000 UNIT SUBCUT ×2 (16:58→21:00)
[2020-05-06] MEDS: Chlorhexidine Gluc Oral Rinse 15 ML MOUTHWASH BUCCAL ×2 (16:58→20:59)
--- NOTE | 2020-05-06 17:20 | W.PM.CCHP ---
Procedures Bronchoscopy Consent for Procedure: Emergent-no informed consent obtained Indication: atelectasis, pulmonary toilet and other (Hypoxia and hypercapnic) Procedure: Emergent flexible bronchoscopy performed at the bedside for right lung whiteout with hypoxia and hypercapnia. Disposable flexible bronchoscope advanced through the ET tube through the tracheobronchial tree with copious thick white secretions noted through the right lung. Secretions cleared with healthy-looking mucosa noted underneath. FiO2 requirements improved with secretion clearance. Patient tolerated the procedure well. No immediate complications. Route: endotracheal tube Sedation/Analgesia: other (Propofol) Monitor: EKG and pulse oximetry
--- NOTE | 2020-05-06 17:23 | P.HPCC_ITS ---
History of Present Illness Date of Service: 05/06/20 Chief Complaint: Shortness of breath 70-year-old lady with underlying history of COPD on supplemental oxygen 3-4 L, obstructive sleep apnea, obesity, chronic diastolic congestive heart failure, chronic kidney disease, hypertension, diabetes mellitus with recent admission to [facility] in the beginning of March of 2020 for COVID-19 related hypoxic respiratory failure in AFib with RVR admitted on 05/06/[address] [facility] with confusion and dyspnea. Patient was noted to be in acute hypoxic and hypercapnic respiratory failure with significant acidosis requiring intubation and ventilatory support. Her x-ray demonstrated white out of the right lung secondary to atelectasis with mucus plugging. Patient has been transferred to intensive care unit and has had bedside bronchoscopy with clearance of the right-sided mucus plugs. She was started on Unasyn for possible aspiration component. Review of Systems Review of Systems: Yes unobtainable due to endotracheal tube PMFSH Past Medical History Medical History (Updated 05/06/20 @ 17:27 by Larry Burk MD) Acute kidney failure Anemia Atrial fibrillation Chronic kidney disease (CKD) COPD (chronic obstructive pulmonary disease) COVID-19 Diabetes GERD (gastroesophageal reflux disease) Hyperlipidemia Hypernatremia Hypokalemia Hypotension Morbid obesity Obstructive sleep apnea Spontaneous ecchymosis Viral pneumonia Social History Social History Advance Directives: No Advance Directives Information Provided: No Meds Allergies Allergy/AdvReac Type Severity Reaction Status Date / Time exenatide [From Byetta] Allergy Unknown Verified 05/06/20 12:49 gabapentin Allergy Unknown Verified 05/06/20 12:49 glipizide Allergy Depression Verified 05/06/20 12:49 metformin Allergy Unknown Verified 05/06/20 12:49 simvastatin [From Zocor] Allergy Unknown Verified 05/06/20 12:49 zolpidem [From Ambien] Allergy Unknown Verified 05/06/20 12:49 Home Medications Medication Instructions Recorded Confirmed Type albuterol sulfate [ProAir HFA] 2 puff INHALATION Q4-6H PRN 05/06/20 05/06/20 History amlodipine 10 mg PO DAILY 05/06/20 05/06/20 History atorvastatin 20 mg PO BEDTIME 05/06/20 05/06/20 History budesonide-formoterol [Symbicort] 2 puff INHALATION BID 05/06/20 05/06/20 History furosemide 40 mg PO DAILY 05/06/20 05/06/20 History glucagon [Baqsimi] 3 mg INTRANASAL 05/06/20 History insulin aspart U-100 [Novolog 0 unit SUBCUT TID 05/06/20 05/06/20 History Flexpen U-100 Insulin] insulin glargine [Lantus Solostar 10 unit SUBCUT QAM 05/06/20 05/06/20 History U-100 Insulin] metoprolol succinate 50 mg PO DAILY 05/06/20 05/06/20 History montelukast 10 mg PO DAILY 05/06/20 05/06/20 History omeprazole 20 mg PO DAILY 05/06/20 05/06/20 History tiotropium bromide [Spiriva with 1 cap INHALATION DAILY 05/06/20 05/06/20 Histor y HandiHaler] Physical Exam Vital Signs: Vital Signs: Last Vital Signs Pulse 67 05/06/20 17:00 Resp 24 H 05/06/20 17:00 BP 128/59 L 05/06/20 17:00 Pulse Ox 100 05/06/20 17:00 Body Mass Index 36.9 Const: General: no acute distress and other (Sedated on the vent) Nutritional Appearance: obese Eyes: Sclerae: sclerae normal EOM: EOMs intact bilaterally Neck: Neck: Yes no lymphadenopathy, Yes trachea midline and Yes supple Resp: Auscultation: other (Poor air movement in the right base, otherwise clear) Cardio: Rate: regular rate Rhythm: regular rhythm Heart sounds: no gallops, no murmurs and no rubs GI: Palpation (GI): Soft to palpation and Other GI palpation findings present ( Nontender) Auscultation: normal bowel sounds Extrem: General: No clubbing, No cyanosis and Yes edema (1+ bilateral) Results Labs CBC and Chem 7: 05/06/20 13:09 05/06/20 15:14 Labs: Laboratory Results - last 24 hr 05/06/20 05/06/20 05/06/20 13:07 13:08 13:09 MCV 104.7 H MCH 29.9 MCHC 28.5 L RDW 17.4 H Plt Count 186 MPV 10.3 Immature Gran % (Auto) Cancelled Neut % (Auto) Cancelled Lymph % (Auto) Cancelled [place] % (Auto) Cancelled Eos % (Auto) Cancelled Baso % (Auto) Cancelled Lymph # (Auto) Cancelled [place] # (Auto) Cancelled Eos # (Auto) Cancelled Baso # (Auto) Cancelled Abs Immat Gran (auto) Cancelled Absolute Neuts (auto) Cancelled Absolute Nucleated RBC 0.020 H Nucleated RBC % (auto) 0.2 Neutrophils % (Manual) 88 H Band Neutrophils % 4 Lymphocytes % (Manual) 4 L Monocytes % (Manual) 4 Abs Neuts (Manual) 12.0 H Lymphocytes # (Manual) 0.5 L Monocytes # (Manual) 0.5 Platelet Estimate NORMAL Plt Morphology Comment NORMAL RBC Morphology NOTED Polychromasia 1+ Macrocytosis 1+ PT INR ABG pH ABG pCO2 ABG pO2 ABG HCO3 ABG O2 Saturation ABG Base Excess Oxygen Given Anion Gap Estim Creat Clear Calc Estimated GFR POC Glucose Random Glucose Lactic Acid 0.3 L Calcium Ferritin Total Bilirubin AST ALT Alkaline Phosphatase Lactate Dehydrogenase Troponin I High Sens 5.8 B-Natriuretic Peptide 204 H Total Protein Albumin Procalcitonin Coronavirus (PCR) Influenza Type A (PCR) Influenza Type B (PCR) RSV RNA Qual (PCR) 05/06/20 05/06/20 05/06/20 13:09 13:09 13:25 MCV MCH MCHC RDW Plt Count MPV Immature Gran % (Auto) Neut % (Auto) Lymph % (Auto) [place] % (Auto) Eos % (Auto) Baso % (Auto) Lymph # (Auto) [place] # (Auto) Eos # (Auto) Baso # (Auto) Abs Immat Gran (auto) Absolute Neuts (auto) Absolute Nucleated RBC Nucleated RBC % (auto) Neutrophils % (Manual) Band Neutrophils % Lymphocytes % (Manual) Monocytes % (Manual) Abs Neuts (Manual) Lymphocytes # (Manual) Monocytes # (Manual) Platelet Estimate Plt Morphology Comment RBC Morphology Polychromasia Macrocytosis PT 12.2 INR 1.0 ABG pH 7.10 L* ABG pCO2 93 H* ABG pO2 100 ABG HCO3 28 H ABG O2 Saturation 97.3 ABG Base Excess -2.9 Oxygen Given 4 L Anion Gap Cancelled Estim Creat Clear Calc Cancelled Estimated GFR Cancelled POC Glucose Random Glucose Cancelled Lactic Acid Calcium Cancelled Ferritin Total Bilirubin Cancelled AST Cancelled ALT Cancelled Alkaline Phosphatase Cancelled Lactate Dehydrogenase Cancelled Troponin I High Sens B-Natriuretic Peptide Total Protein Cancelled Albumin Cancelled Procalcitonin Coronavirus (PCR) Influenza Type A (PCR) Influenza Type B (PCR) RSV RNA Qual (PCR) 05/06/20 05/06/20 05/06/20 13:35 13:50 15:14 MCV MCH MCHC RDW Plt Count MPV Immature Gran % (Auto) Neut % (Auto) Lymph % (Auto) [place] % (Auto) Eos % (Auto) Baso % (Auto) Lymph # (Auto) [place] # (Auto) Eos # (Auto) Baso # (Auto) Abs Immat Gran (auto) Absolute Neuts (auto) Absolute Nucleated RBC Nucleated RBC % (auto) Neutrophils % (Manual) Band Neutrophils % Lymphocytes % (Manual) Monocytes % (Manual) Abs Neuts (Manual) Lymphocytes # (Manual) Monocytes # (Manual) Platelet Estimate Plt Morphology Comment RBC Morphology Polychromasia Macrocytosis PT INR ABG pH ABG pCO2 ABG pO2 ABG HCO3 ABG O2 Saturation ABG Base Excess Oxygen Given Anion Gap Estim Creat Clear Calc Estimated GFR POC Glucose 153 H Random Glucose Lactic Acid Calcium Ferritin Total Bilirubin AST ALT Alkaline Phosphatase Lactate Dehydrogenase Troponin I High Sens 4.9 B-Natriuretic Peptide 136 H Total Protein Albumin Procalcitonin Coronavirus (PCR) POSITIVE A Influenza Type A (PCR) NEGATIVE Influenza Type B (PCR) NEGATIVE RSV RNA Qual (PCR) NEGATIVE 05/06/20 05/06/20 05/06/20 15:14 15:14 16:15 MCV MCH MCHC RDW Plt Count MPV Immature Gran % (Auto) Neut % (Auto) Lymph % (Auto) [place] % (Auto) Eos % (Auto) Baso % (Auto) Lymph # (Auto) [place] # (Auto) Eos # (Auto) Baso # (Auto) Abs Immat Gran (auto) Absolute Neuts (auto) Absolute Nucleated RBC Nucleated RBC % (auto) Neutrophils % (Manual) Band Neutrophils % Lymphocytes % (Manual) Monocytes % (Manual) Abs Neuts (Manual) Lymphocytes # (Manual) Monocytes # (Manual) Platelet Estimate Plt Morphology Comment RBC Morphology Polychromasia Macrocytosis PT INR ABG pH 7.29 L ABG pCO2 58 H ABG pO2 64 L ABG HCO3 27 H ABG O2 Saturation 94.8 ABG Base Excess 0.2 Oxygen Given 50% Anion Gap 13 Estim Creat Clear Calc 18.3 Estimated GFR 15 POC Glucose Random Glucose 177 H D Lactic Acid Calcium 8.0 L Ferritin 419 H Total Bilirubin 0.3 AST 16 D ALT 12 Alkaline Phosphatase 68 Lactate Dehydrogenase 311 H Troponin I High Sens B-Natriuretic Peptide Total Protein 5.6 L Albumin 2.4 L Procalcitonin 0.32 Coronavirus (PCR) Influenza Type A (PCR) Influenza Type B (PCR) RSV RNA Qual (PCR) Imaging Radiologist's Impressions: Impressions Chest X-Ray 05/06/20 00:00 IMPRESSION: 1. ET tube 4.3 cm above sen. 2. NG tube extending below diaphragm. 3. No significant change right chest consolidation and volume loss. Chest X-Ray 05/06/20 13:04 IMPRESSION: 1. Significant increased opacity right hemithorax when compared with recent study 05/03/2020. There is associated volume loss consistent with element of superimposed atelectasis to the prior airspace disease and probable effusion. 2. Subsegmental atelectasis left base. Assessment and Plan (1) Acute on chronic respiratory failure with hypoxia and hypercapnia: Status: Acute Assessment: 70-year-old lady with underlying advanced supplemental oxygen dependent COPD and chronic diastolic congestive heart failure admitted with acute on chronic hypoxic and hypercapnic respiratory failure secondary to right lung atelectasis/mucus plugging requiring ventilatory support with possible aspiration component. Plan: Neuro: No acute issues. Cardiac: No acute issues. Underlying history of chronic diastolic congestive heart failure and hypertension. Pulmonary: Acute on chronic hypoxic and hypercapnic respiratory failure with mucus plugging, right-side white out. Status post bedside bronchoscopy with clearance of right-sided mucus plugs with improved oxygenation and ventilation. Continue to titrate of ventilatory support as tolerated. Underlying advanced supplemental oxygen dependent COPD. Renal: No acute issues. Endo: No acute issues. Underlying diabetes mellitus. GI: No acute issues. ID: Possible aspiration component, started empirically on Unasyn. Heme/Onc: No acute issues. Psych: No acute issues. Miscellaneous: No acute issues. Prophylaxis: Heparin, ppi Diet: Nothing by mouth Critical care time spent: 60 minutes excluding separately billable procedures (2) Pulmonary aspiration: Status: Acute (3) Chronic congestive heart failure: Status: Acute Critical Care Time Critical Care Time (minutes): 60
[2020-05-06 18:03] LABS: Glucose, Whole Blood 157 mg/dL (60-115)
[2020-05-06] MEDS: Ampicillin Sodium/Sulbactam Na 3 GM in 0.9 % Sodium Chloride 100 ML IV (18:17)
[2020-05-06] MEDS: propofoL 1,000 MG/100 ML VIAL 11 MG IVCONT (18:18)
[2020-05-06] MEDS: Insulin Lispro 100 UNIT/ML 3 ML VIAL SUBCUT (18:19)
[2020-05-06] MEDS: Famotidine/PF 20 MG/2 ML VIAL IVPUSH (20:59)
[2020-05-06 21:57] LABS: Glucose, Whole Blood 138 mg/dL (60-115)
[2020-05-07] VITALS (25 sets, daily range): BP systolic 112–164; BP diastolic 41–73; PULSE 81–105; RESP 13–94; TEMP 37–38.2; O2SAT 88–100; BMI 36.6; BMI 36.9
[2020-05-07 00:56] LABS: Base Excess VBG 3.1 mmol/L; HCO3 VBG 27 mmol/L; PCO2 VBG 41 mmhg; PO2 VBG 30 mmhg; pH VBG 7.45 (7.32-7.43)
[2020-05-07] MEDS: propofoL 1,000 MG/100 ML VIAL 22.01 MG IVCONT ×2 (00:56→04:00)
[2020-05-07] MEDS: Chlorhexidine Gluc Oral Rinse 15 ML MOUTHWASH BUCCAL (06:04)
[2020-05-07] MEDS: Ampicillin Sodium/Sulbactam Na 3 GM in 0.9 % Sodium Chloride 100 ML IV ×2 (06:04→18:55)
[2020-05-07] MEDS: Heparin Sodium,Porcine 5,000 UNIT/ML VIAL 5000 UNIT SUBCUT ×2 (06:05→14:13)
[2020-05-07 06:08] LABS: Basophils Percent Auto 0.1 % (0-2); Hematocrit 22.9 % (37-47); Imm Gran Abs Auto 0.47 X10*3/uL (0.00-0.03); Imm Gran Pct Auto 4.4 % (0.0-0.4); Lymphocytes Absolute Auto 0.5 X10*3/uL (1.2-4.9); Lymphocytes Percent Auto 4.2 % (20-40); MANUAL DIFF FLAG NO; Mean Corpuscular HGB Conc 30.6 g/dl (31.0-35.0); Mean Corpuscular Hemoglobin 29.5 pg (27.0-33.0); Mean Corpuscular Volume 96.6 fL (80-98); Mean Platelet Volume 10.3 fL (9.4-12.3); Monocytes Absolute Auto 0.3 X10*3/uL (0.1-1.2); Monocytes Percent Auto 3.2 % (2-11); NRBC Pct Auto 0.3 /100WBC (0.0-0.2); Neutrophils Absolute Auto 9.5 X10*3/uL (2.0-8.3); Neutrophils Percent Auto 88.1 % (45-73); Platelet Count 151 X10*3/uL (160-400); Red Blood Count 2.37 X10*6/uL (4.20-5.50); Red Cell Distribution Width 17.2 % (11.0-16.0); SCAN SMEAR FLAG 1; White Blood Count 10.8 X10*3/uL (4.8-10.8)
[2020-05-07 06:27] LABS: Base Excess VBG 0.6 mmol/L; HCO3 VBG 24 mmol/L; Oxygen Saturation VBG 80.7 %; PCO2 VBG 33 mmhg; PO2 VBG 37 mmhg; pH VBG 7.48 (7.32-7.43)
[2020-05-07 06:37] LABS: Albumin Level 2.7 g/dL (3.5-5.0); Anion Gap 21 (12-20); Blood Urea Nitrogen 56 mg/dL (9-16); Calcium 8.3 mg/dL (8.4-10.2); Carbon Dioxide 20 mmol/L (22-29); Chloride 109 mmol/L (96-108); Estimated Glomerular Filt Rate 17; Glucose Random 109 mg/dL (60-115); Magnesium 2.1 mg/dL (1.6-2.6); Phosphorus 1.6 mg/dL (2.7-4.5); Potassium 4.2 mmol/l (3.3-5.1); Sodium 146 mmol/L (135-145)
[2020-05-07] MEDS: Famotidine/PF 20 MG/2 ML VIAL IVPUSH (08:07)
[2020-05-07 08:49] LABS: Glucose, Whole Blood 114 mg/dL (60-115)
[2020-05-07] MEDS: Albumin Human 25 % 100 ML IV ×3 (09:00→19:38)
[2020-05-07] MEDS: Potassium Phosphate 30 MMOL in 0.9 % Sodium Chloride 500 ML 85 MMOL IV (09:01)
[2020-05-07] MEDS: Furosemide 40 MG/4 ML VIAL IVPUSH (09:01)
--- NOTE | 2020-05-07 10:00 | PC.NURSE ---
0930 Sedation turned off. RT at bedside. Patient awake and following commands. MD aware. Order received to extubated. Patient extubated to 2L NC, O2 sat 95%. Oxygen titrated to O2 sat goal of 88-93%. Patient tolerated well. Frequent reorientation and education given. Patient restarted on home spiriva. SBP trending in the 160s to 170s. MD made aware. Patient restarted on home medications.
--- NOTE | 2020-05-07 10:25 | P.CDIC_ITS ---
CDI Concurrent Query Service Date: 05/07/20 Documentation Clarification: Please clarify if you are treating a proba ble/suspected/likely or confirmed: Acute on chronic kidney disease Stage 1-5 Chronic kidney disease Stage 1-5 Please specify if known or other Provider Response: Other (Underlying chronic kidney disease stage 4 present on admission) Other Diagnosis: Underlying chronic kidney disease stage 4 present on admission PLEASE DO NOT DELETE/MODIFY EXISTING CONTENT Additional information is needed in order to code to the highest accuracy and appropriate Severity of Illness (SOI). Please clarify the information noted below in your progress notes and discharge summary. Risk Factors/Clinical Indicators/Treatments Ed: PMH - Acute kidney failure CR. 3.06 Gfr 15 Bun 51 H Critical care note: PMH - Acute kidney failure CKD CDS: Vivi Mckeon CCS, CDIS Contact Number: [phone]. [phone] Please Review the information above and exercise your independent professional judgment in responding to the query. If you concur, pleas document in the PROGRESS NOTES and DISCHARGE SUMMARY. If you do not agree with the query, please document in the query above. THIS QUERY IS PART OF THE PERMANENT MEDICAL RECORD
[2020-05-07 11:47] LABS: Glucose, Whole Blood 131 mg/dL (60-115)
[2020-05-07] MEDS: amLODIPine Besylate 10 MG TABLET PO (12:50)
[2020-05-07] MEDS: Metoprolol Succinate ER 50 MG TAB.ER.24H PO (12:50)
[2020-05-07] MEDS: Insulin Lispro 100 UNIT/ML 3 ML VIAL SUBCUT (14:45)
[2020-05-07 14:49] LABS: Glucose, Whole Blood 160 mg/dL (60-115)
--- NOTE | 2020-05-07 15:49 | MHC.CM.PN ---
Met with pt in ICU. Had been extubated in am. O2 via NC. Becoming SOB with talking. Interview shortened secondary to patient respiratory status. Reviewed IMM with son, Faisal ([phone]), who is alternate HCP. per pt request. Message left with Jania, pt sister and HCP ([phone]). D/C plan is to return to [facility]. Per son, there is a 20 day bed hold for her. Transportation via ambulance. Will follow for D/C needs.
--- NOTE | 2020-05-07 15:52 | P.PNCC_ITS ---
Subjective Subjective Date of Service: 05/07/20 Interval History: 70-year-old lady with underlying history of COPD on supplemental oxygen 3-4 L, obstructive sleep apnea, obesity, chronic diastolic congestive heart failure, chronic kidney disease, hypertension, diabetes mellitus with recent admission to [facility] in the beginning of March of 2020 for COVID-19 related hypoxic respiratory failure in AFib with RVR admitted on 05/06/2020 from [facility] with confusion and dyspnea. Patient was noted to be in acute hypoxic and hypercapnic respiratory failure with significant acidosis requiring intubation and ventilatory support. Her x- ray demonstrated white out of the right lung secondary to atelectasis with mucus plugging. Patient has been transferred to intensive care unit and has had bedside bronchoscopy with clearance of the right-sided mucus plugs. She was started on Unasyn for possible aspiration component. No events overnight. Extubated uneventfully this a.m.. Passed bedside swallow evaluation. Physical Exam Vital Signs: Vital Signs: Last Vital Signs Temp 99.1 F 05/07/20 15:00 Pulse 95 05/07/20 15:00 Resp 16 05/07/20 15:00 BP 132/41 L 05/07/20 15:00 Pulse Ox 91 L 05/07/20 15:00 Body Mass Index 36.9 Const: General: no acute distress, alert and awake Nutritional Appearance: obese Eyes: Sclerae: sclerae normal EOM: EOMs intact bilaterally Neck: Neck: Yes no lymphadenopathy, Yes trachea midline and Yes supple Resp: Effort & Inspection: normal respiratory effort and no respiratory distress Auscultation: clear to auscultation bilaterally Cardio: Rate: regular rate Rhythm: regular rhythm Heart sounds: no gallops, no murmurs and no rubs GI: Palpation (GI): Soft to palpation and Other GI palpation findings present ( Nontender) Auscultation: normal bowel sounds Extrem: General: No clubbing, No cyanosis and Yes edema (1+ bilateral) Objective Data Labs CBC & Chem 7: 05/07/20 05:44 05/07/20 05:44 Labs: Laboratory Results - last 24 hr 05/06/20 05/06/20 05/06/20 13:35 15:14 15:14 WBC RBC Hgb Hct MCV MCH MCHC RDW Plt Count MPV Immature Gran % (Auto) Neut % (Auto) Lymph % (Auto) [place] % (Auto) Eos % (Auto) Baso % (Auto) Lymph # (Auto) [place] # (Auto) Eos # (Auto) Baso # (Auto) Abs Immat Gran (auto) Absolute Neuts (auto) Absolute Nucleated RBC Nucleated RBC % (auto) ABG pH ABG pCO2 ABG pO2 ABG HCO3 ABG O2 Saturation ABG Base Excess VBG pH VBG pCO2 VBG pO2 VBG HCO3 VBG O2 Saturation VBG Base Excess Oxygen Given Sodium 145 Potassium 4.7 Chloride 109 H Carbon Dioxide 28 Anion Gap 13 BUN 51 H Creatinine 3.06 H Estim Creat Clear Calc 18.3 Estimated GFR 15 POC Glucose 153 H Random Glucose 177 H D Calcium 8.0 L Phosphorus Magnesium Ferritin 419 H Total Bilirubin 0.3 AST 16 D ALT 12 Alkaline Phosphatase 68 Lactate Dehydrogenase 311 H Troponin I High Sens 4.9 B-Natriuretic Peptide 136 H Total Protein 5.6 L Albumin 2.4 L Procalcitonin 05/06/20 05/06/20 05/06/20 15:14 16:15 17:10 WBC RBC Hgb Hct MCV MCH MCHC RDW Plt Count MPV Immature Gran % (Auto) Neut % (Auto) Lymph % (Auto) [place] % (Auto) Eos % (Auto) Baso % (Auto) Lymph # (Auto) [place] # (Auto) Eos # (Auto) Baso # (Auto) Abs Immat Gran (auto) Absolute Neuts (auto) Absolute Nucleated RBC Nucleated RBC % (auto) ABG pH 7.29 L ABG pCO2 58 H ABG pO2 64 L ABG HCO3 27 H ABG O2 Saturation 94.8 ABG Base Excess 0.2 VBG pH VBG pCO2 VBG pO2 VBG HCO3 VBG O2 Saturation VBG Base Excess Oxygen Given 50% Sodium Potassium Chloride Carbon Dioxide Anion Gap BUN Creatinine Estim Creat Clear Calc Estimated GFR POC Glucose 157 H Random Glucose Calcium Phosphorus Magnesium Ferritin Total Bilirubin AST ALT Alkaline Phosphatase Lactate Dehydrogenase Troponin I High Sens B-Natriuretic Peptide Total Protein Albumin Procalcitonin 0.32 05/06/20 05/07/20 05/07/20 21:07 00:33 05:44 WBC 10.8 RBC 2.37 L Hgb 7.0 L* Hct 22.9 L D MCV 96.6 D MCH 29.5 MCHC 30.6 L RDW 17.2 H Plt Count 151 L MPV 10.3 Immature Gran % (Auto) 4.4 H Neut % (Auto) 88.1 H Lymph % (Auto) 4.2 L [place] % (Auto) 3.2 Eos % (Auto) 0.0 Baso % (Auto) 0.1 Lymph # (Auto) 0.5 L [place] # (Auto) 0.3 Eos # (Auto) 0.0 Baso # (Auto) 0.0 Abs Immat Gran (auto) 0.47 H Absolute Neuts (auto) 9.5 H Absolute Nucleated RBC 0.030 H Nucleated RBC % (auto) 0.3 H ABG pH ABG pCO2 ABG pO2 ABG HCO3 ABG O2 Saturation ABG Base Excess VBG pH 7.45 H VBG pCO2 41 VBG pO2 30 VBG HCO3 27 VBG O2 Saturation 66.0 VBG Base Excess 3.1 Oxygen Given Sodium Potassium Chloride Carbon Dioxide Anion Gap BUN Creatinine Estim Creat Clear Calc Estimated GFR POC Glucose 138 H Random Glucose Calcium Phosphorus Magnesium Ferritin Total Bilirubin AST ALT Alkaline Phosphatase Lactate Dehydrogenase Troponin I High Sens B-Natriuretic Peptide Total Protein Albumin Procalcitonin 05/07/20 05/07/20 05/07/20 05:44 05:44 08:15 WBC RBC Hgb Hct MCV MCH MCHC RDW Plt Count MPV Immature Gran % (Auto) Neut % (Auto) Lymph % (Auto) [place] % (Auto) Eos % (Auto) Baso % (Auto) Lymph # (Auto) [place] # (Auto) Eos # (Auto) Baso # (Auto) Abs Immat Gran (auto) Absolute Neuts (auto) Absolute Nucleated RBC Nucleated RBC % (auto) ABG pH ABG pCO2 ABG pO2 ABG HCO3 ABG O2 Saturation ABG Base Excess VBG pH 7.48 H VBG pCO2 33 VBG pO2 37 VBG HCO3 24 VBG O2 Saturation 80.7 VBG Base Excess 0.6 Oxygen Given Sodium 146 H Potassium 4.2 Chloride 109 H Carbon Dioxide 20 L Anion Gap 21 H BUN 56 H Creatinine 2.79 H Estim Creat Clear Calc 20.0 Estimated GFR 17 POC Glucose 114 Random Glucose 109 D Calcium 8.3 L Phosphorus 1.6 L Magnesium 2.1 Ferritin Total Bilirubin AST ALT Alkaline Phosphatase Lactate Dehydrogenase Troponin I High Sens B-Natriuretic Peptide Total Protein Albumin 2.7 L Procalcitonin 01/08/21 01/08/21 11:42 14:17 WBC RBC Hgb Hct MCV MCH MCHC RDW Plt Count MPV Immature Gran % (Auto) Neut % (Auto) Lymph % (Auto) [place] % (Auto) Eos % (Auto) Baso % (Auto) Lymph # (Auto) [place] # (Auto) Eos # (Auto) Baso # (Auto) Abs Immat Gran (auto) Absolute Neuts (auto) Absolute Nucleated RBC Nucleated RBC % (auto) ABG pH ABG pCO2 ABG pO2 ABG HCO3 ABG O2 Saturation ABG Base Excess VBG pH VBG pCO2 VBG pO2 VBG HCO3 VBG O2 Saturation VBG Base Excess Oxygen Given Sodium Potassium Chloride Carbon Dioxide Anion Gap BUN Creatinine Estim Creat Clear Calc Estimated GFR POC Glucose 131 H 160 H Random Glucose Calcium Phosphorus Magnesium Ferritin Total Bilirubin AST ALT Alkaline Phosphatase Lactate Dehydrogenase Troponin I High Sens B-Natriuretic Peptide Total Protein Albumin Procalcitonin Microbiology Microbiology Results: Microbiology 05/06/20 13:11 Blood - Venous Blood Culture - Preliminary No growth after 24 hours. 05/06/20 13:07 Blood - Venous Blood Culture - Preliminary No growth after 24 hours. 05/06/20 00:00 Blood - Venous Blood Culture - Final 05/06/20 00:00 Blood - Venous Blood Culture - Final Progress Note: A&P Assessment and plan (1) Chronic congestive heart failure: Status: Acute Assessment and Plan: Assessment: 70-year-old lady with underlying advanced supplemental oxygen dependent COPD and chronic diastolic congestive heart failure admitted with acute on chronic hypoxic and hypercapnic respiratory failure secondary to right lung atelectasis/mucus plugging requiring ventilatory support. Plan: Neuro: No acute issues. Cardiac: No acute issues. Underlying history of chronic diastolic congestive heart failure, AFib, and hypertension. Pulmonary: Acute on chronic hypoxic and hypercapnic respiratory failure with mucus plugging, right-side white out. Status post bedside bronchoscopy with clearance of right-sided mucus plugs with improved oxygenation and ventilation. Continue with chest physiotherapy every 6 hours. Patient does significant po sitional component to her right-sided atelectasis as she prefers to lie on her right-side. Extubated this a.m. Underlying advanced supplemental oxygen dependent COPD and obstructive sleep apnea requiring nocturnal CPAP. Renal: No acute issues. Underlying chronic kidney disease Endo: No acute issues. Underlying diabetes mellitus. GI: No acute issues. ID: Aspiration component has resolved, though would continue Unasyn (or Augmentin) for next 7 days to decrease pulmonary secretions. Heme/Onc: No acute issues. Psych: No acute issues. Miscellaneous: No acute issues. Prophylaxis: Heparin, ppi Diet: Diabetic Critical care time spent: 60 minutes (2) Pulmonary aspiration: Status: Acute (3) Acute on chronic respiratory failure with hypoxia and hypercapnia: Status: Acute (4) Atelectasis of right lung: Status: Acute Time Spent With Patient Total time spent with greater than 50% in coordination of care (as documented) at patient's floor/unit and/or counseling patient:: 0 Critical Care Time Critical Care Time (minutes): 60
[2020-05-07 16:24] LABS: Glucose, Whole Blood 104 mg/dL (60-115)
[2020-05-07 20:45] LABS: Glucose, Whole Blood 107 mg/dL (60-115)
[2020-05-07] MEDS: guaiFENesin 200 MG/10 ML 10 ML LIQUID PO (21:20)
[2020-05-08] VITALS (9 sets, daily range): BP systolic 123–152; BP diastolic 50–64; PULSE 79–118; RESP 18–26; TEMP 36.1–37.1; O2SAT 91–98
[2020-05-08] MEDS: Albumin Human 25 % 100 ML IV (02:05)
[2020-05-08] MEDS: Ampicillin Sodium/Sulbactam Na 3 GM in 0.9 % Sodium Chloride 100 ML IV ×2 (05:04→18:08)
[2020-05-08 05:55] LABS: MANUAL DIFF FLAG NO
[2020-05-08 05:58] LABS: Basophils Percent Auto 0.2 % (0-2); Hematocrit 25.4 % (37-47); Hemoglobin 7.5 g/dl (12.0-16.0); Imm Gran Abs Auto 0.53 X10*3/uL (0.00-0.03); Imm Gran Pct Auto 4.8 % (0.0-0.4); Lymphocytes Absolute Auto 0.8 X10*3/uL (1.2-4.9); Lymphocytes Percent Auto 6.8 % (20-40); Mean Corpuscular HGB Conc 29.5 g/dl (31.0-35.0); Mean Corpuscular Hemoglobin 29.2 pg (27.0-33.0); Mean Corpuscular Volume 98.8 fL (80-98); Monocytes Absolute Auto 0.7 X10*3/uL (0.1-1.2); Monocytes Percent Auto 6.8 % (2-11); NRBC Pct Auto 0.2 /100WBC (0.0-0.2); Neutrophils Absolute Auto 8.9 X10*3/uL (2.0-8.3); Neutrophils Percent Auto 81.4 % (45-73); Platelet Count 158 X10*3/uL (160-400); Red Blood Count 2.57 X10*6/uL (4.20-5.50); Red Cell Distribution Width 17.9 % (11.0-16.0)
[2020-05-08 06:14] LABS: Base Excess VBG 4.1 mmol/L; HCO3 VBG 31 mmol/L; Oxygen Saturation VBG 71.1 %; PCO2 VBG 62 mmhg; PO2 VBG 38 mmhg; pH VBG 7.32 (7.32-7.43)
[2020-05-08 06:29] LABS: Albumin Level 3.4 g/dL (3.5-5.0); Anion Gap 17 (12-20); Blood Urea Nitrogen 50 mg/dL (9-16); Calcium 8.2 mg/dL (8.4-10.2); Carbon Dioxide 28 mmol/L (22-29); Chloride 109 mmol/L (96-108); Creatinine Clr Calc Pharmacy 21.3; Estimated Glomerular Filt Rate 18; Glucose Random 90 mg/dL (60-115); Phosphorus 3.8 mg/dL (2.7-4.5); Potassium 3.9 mmol/l (3.3-5.1); Sodium 150 mmol/L (135-145)
[2020-05-08 07:35] LABS: Glucose, Whole Blood 84 mg/dL (60-115)
[2020-05-08] MEDS: Metoprolol Succinate ER 50 MG TAB.ER.24H PO (08:55)
[2020-05-08] MEDS: Furosemide 40 MG/4 ML VIAL IVPUSH (08:55)
[2020-05-08] MEDS: amLODIPine Besylate 10 MG TABLET PO (08:57)
[2020-05-08] MEDS: Dextrose 5 % 1,000 ML 50 ML IVCONT (09:11)
[2020-05-08 11:24] LABS: Glucose, Whole Blood 111 mg/dL (60-115)
[2020-05-08] MEDS: Heparin Sodium,Porcine 5,000 UNIT/ML VIAL 5000 UNIT SUBCUT ×2 (15:13→20:43)
[2020-05-08 15:23] LABS: Glucose, Whole Blood 129 mg/dL (60-115)
--- NOTE | 2020-05-08 16:50 | P.PNIM_ITS ---
Subjective Subjective Date of Service: 05/08/20 Interval History: stepped down to ISO unit on baseline 4L O2 breathing improving no fever Physical Exam Vital Signs: Vital Signs: Last Vital Signs Temp 97.6 F 05/08/20 11:51 Pulse 86 05/08/20 15:56 Resp 26 H 05/08/20 15:56 BP 139/62 05/08/20 15:56 Pulse Ox 96 05/08/20 15:56 Body Mass Index 2.5 Gen: tachypneic HEENT: sclera anicteric, moist mucus membranes Neck: supple Lungs: tachypneic, auscultation deferred due to COVID-19 Heart: normal peripheral pulses Abd: obese, soft, non-tender, non-distended Ext: no cyanosis, clubbing, or edema Skin: warm/well-perfused Neuro: alert and oriented x3, no focal findings Psych: appropriate affect Objective Data Current Medications Generic Name Dose Route Start Last Admin Trade Name Freq PRN Reason Stop Dose Admin Albuterol Sulfate 2 puff 05/07/20 11:19 Albuterol Sulfate 90 Mcg 8 Gm Inhaler INHALE RQ4H PRN wheezing Amlodipine Besylate 10 mg 05/07/20 11:30 05/08/20 08:57 Amlodipine Besylate 10 Mg Tablet PO 10 mg DAILY JASMINE Administration Protocol Furosemide 40 mg 05/08/20 09:00 05/08/20 08:55 Furosemide 40 Mg/4 Ml Vial IVPUSH 40 mg DAILY JASMINE Administration Protocol Guaifenesin 10 ml 05/07/20 21:15 05/07/20 21:20 Guaifenesin 200 Mg/10 Ml 10 Ml Liquid PO 10 ml Q4H PRN Administration Cough Heparin Sodium (Porcine) 5,000 unit 05/06/20 14:30 05/08/20 15:13 Heparin Sodium,Porcine 5,000 Unit/Ml Vial SUBCUT 5,000 unit Q8H JASMINE Administration Ampicillin Sodium/Sulbactam 100 mls @ 200 mls/hr 05/06/20 18:00 05/08/20 05:39 Sodium 3 gm/ Sodium Chloride IV Infused Q12H JASMINE Infusion Dextrose 1,000 mls @ 50 mls/hr 05/08/20 09:00 05/08/20 09:11 D5w IVCONT 05/09/20 04:59 50 mls/hr .Q20H JASMINE Administration Insulin Human Lispro 0 unit 05/07/20 16:30 05/08/20 15:35 Insulin Lispro 100 Unit/Ml 3 Ml Vial SUBCUT Not Given QIDACHS [facility] Protocol Metoprolol Succinate 50 mg 05/07/20 11:30 05/08/20 08:55 Metoprolol Succinate Er 50 Mg Tab.Er.24h PO 50 mg DAILY JASMINE Administration Protocol Pharmacy Consult 1 each 05/06/20 16:09 Consult Rx Perform Med Rec MISCELLANE ONCE PRN Consult order Tiotropium [place] 1 puff 05/08/20 08:00 05/08/20 09:17 Tiotropium [place] 18 Mcg Cap.W.Dev INHALE Not Given RDAILY [facility] Labs CBC & Chem 7: 05/08/20 05:28 05/08/20 05:28 Labs: Laboratory Results - last 24 hr 05/07/20 05/08/20 05/08/20 20:40 05:28 05:28 WBC 11.0 H RBC 2.57 L Hgb 7.5 L Hct 25.4 L MCV 98.8 H MCH 29.2 MCHC 29.5 L RDW 17.9 H Plt Count 158 L MPV 10.0 Immature Gran % (Auto) 4.8 H Neut % (Auto) 81.4 H Lymph % (Auto) 6.8 L [place] % (Auto) 6.8 Eos % (Auto) 0.0 Baso % (Auto) 0.2 Lymph # (Auto) 0.8 L [place] # (Auto) 0.7 Eos # (Auto) 0.0 Baso # (Auto) 0.0 Abs Immat Gran (auto) 0.53 H Absolute Neuts (auto) 8.9 H Absolute Nucleated RBC 0.020 H Nucleated RBC % (auto) 0.2 VBG pH VBG pCO2 VBG pO2 VBG HCO3 VBG O2 Saturation VBG Base Excess Sodium 150 H Potassium 3.9 Chloride 109 H Carbon Dioxide 28 Anion Gap 17 BUN 50 H Creatinine 2.62 H Estim Creat Clear Calc 21.3 Estimated GFR 18 POC Glucose 107 Random Glucose 90 Calcium 8.2 L Phosphorus 3.8 Magnesium 2.0 Albumin 3.4 L D Blood Type Antibody Screen 05/08/20 05/08/20 05/08/20 05:28 07:31 10:19 WBC RBC Hgb Hct MCV MCH MCHC RDW Plt Count MPV Immature Gran % (Auto) Neut % (Auto) Lymph % (Auto) [place] % (Auto) Eos % (Auto) Baso % (Auto) Lymph # (Auto) [place] # (Auto) Eos # (Auto) Baso # (Auto) Abs Immat Gran (auto) Absolute Neuts (auto) Absolute Nucleated RBC Nucleated RBC % (auto) VBG pH 7.32 VBG pCO2 62 VBG pO2 38 VBG HCO3 31 VBG O2 Saturation 71.1 VBG Base Excess 4.1 Sodium Potassium Chloride Carbon Dioxide Anion Gap BUN Creatinine Estim Creat Clear Calc Estimated GFR POC Glucose 84 Random Glucose Calcium Phosphorus Magnesium Albumin Blood Type O Positive Antibody Screen NEGATIVE 05/08/20 05/08/20 11:03 15:17 WBC RBC Hgb Hct MCV MCH MCHC RDW Plt Count MPV Immature Gran % (Auto) Neut % (Auto) Lymph % (Auto) [place] % (Auto) Eos % (Auto) Baso % (Auto) Lymph # (Auto) [place] # (Auto) Eos # (Auto) Baso # (Auto) Abs Immat Gran (auto) Absolute Neuts (auto) Absolute Nucleated RBC Nucleated RBC % (auto) VBG pH VBG pCO2 VBG pO2 VBG HCO3 VBG O2 Saturation VBG Base Excess Sodium Potassium Chloride Carbon Dioxide Anion Gap BUN Creatinine Estim Creat Clear Calc Estimated GFR POC Glucose 111 129 H Random Glucose Calcium Phosphorus Magnesium Albumin Blood Type Antibody Screen Microbiology Microbiology Results: Microbiology 05/06/20 13:11 Blood - Venous Blood Culture - Preliminary No growth after 48 hours. 05/06/20 13:07 Blood - Venous Blood Culture - Preliminary No growth after 48 hours. 05/06/20 00:00 Blood - Venous Blood Culture - Final 05/06/20 00:00 Blood - Venous Blood Culture - Final Assessment and Plan (1) Acute on chronic respiratory failure with hypoxia and hypercapnia: Status: Acute (2) COVID-19: Status: Acute (3) Obstructive sleep apnea: Status: Acute (4) Morbid obesity: Status: Acute (5) Chronic kidney disease (CKD): Status: Acute (6) COPD (chronic obstructive pulmonary disease): Status: Acute (7) Atelectasis of right lung: Status: Acute Assessment and Plan: hospital d#3 70yo F with COPD, chronic hypoxic resp failure on 3-4L O2, OTRRIE, obesity, chronic HFpEF, CKD, HTN, DM2 recently discharged from [facility] to [facility] for [id number] acute hypoxic respiratory failure admitted to ICU with acute hypoxic/hypercapneic respiratory failure requiring intubation/mechanical ventilation, white-out of R lung due to atelectasis from mucus plugging, s/p bronchoscopy with clearance of R-sided mucus plugs # acute/chronic hypoxic/hypercapneic respiratory failure - acute component resolved, back on home O2 # TORRIE - nocturnal CPAP # possible aspiration - amp/sulbactam d#3 - formal HOUSE WIRER consult # hyperNa - IV D5W, recheck BMP in am # acute/chronic HFpEF - IV furosemide, change to PO in am # HTN - continue amlodipine + metoprolol succinate # CKD4 - Cr stable at baseline # COPD - continue LAMA, ICS/LABA, prn NINO # DM2 - correction-dose lispro # dispo - plan return to [facility]
[2020-05-08] MEDS: guaiFENesin 200 MG/10 ML 10 ML LIQUID PO ×2 (19:16→23:20)
[2020-05-08 19:39] LABS: Glucose, Whole Blood 136 mg/dL (60-115)
[2020-05-09] VITALS (10 sets, daily range): BP systolic 104–150; BP diastolic 48–66; PULSE 20–126; RESP 16–20; TEMP 36.1–37.1; O2SAT 91–97
[2020-05-09] MEDS: guaiFENesin 200 MG/10 ML 10 ML LIQUID PO (03:21)
[2020-05-09] MEDS: Heparin Sodium,Porcine 5,000 UNIT/ML VIAL 5000 UNIT SUBCUT ×3 (05:11→21:34)
[2020-05-09] MEDS: Ampicillin Sodium/Sulbactam Na 3 GM in 0.9 % Sodium Chloride 100 ML IV ×2 (05:12→17:03)
[2020-05-09] MEDS: Metoprolol Tartrate 5 MG/5 ML VIAL IVPUSH (05:46)
--- NOTE | 2020-05-09 06:35 | PC.NURSE ---
Pt converted to afib overnight w hr in 100-110s. Progressively increased to 120-135s. Pt stated she was told about prior afib. aware. 5mg iv lopressor given. hr decreased to 100-110s, still remains afib.
[2020-05-09 07:07] LABS: MANUAL DIFF FLAG NO
[2020-05-09 07:12] LABS: Basophils Percent Auto 0.4 % (0-2); Eosinophils Absolute Auto 0.1 X10*3/uL (0.0-0.4); Eosinophils Percent Auto 0.4 % (0-4); Hematocrit 27.3 % (37-47); Imm Gran Abs Auto 0.34 X10*3/uL (0.00-0.03); Lymphocytes Absolute Auto 1.1 X10*3/uL (1.2-4.9); Lymphocytes Percent Auto 9.6 % (20-40); Mean Corpuscular HGB Conc 29.3 g/dl (31.0-35.0); Mean Corpuscular Hemoglobin 29.6 pg (27.0-33.0); Mean Corpuscular Volume 101.1 fL (80-98); Mean Platelet Volume 10.6 fL (9.4-12.3); Monocytes Percent Auto 9.3 % (2-11); NRBC Pct Auto 0.2 /100WBC (0.0-0.2); Neutrophils Absolute Auto 8.7 X10*3/uL (2.0-8.3); Neutrophils Percent Auto 77.3 % (45-73); Platelet Count 130 X10*3/uL (160-400); Red Cell Distribution Width 17.7 % (11.0-16.0); White Blood Count 11.2 X10*3/uL (4.8-10.8)
[2020-05-09 07:42] LABS: B Type Natriuretic Peptide 482 pg/mL (<100)
[2020-05-09 07:47] LABS: Anion Gap 14 (12-20); Blood Urea Nitrogen 50 mg/dL (9-16); Calcium 8.2 mg/dL (8.4-10.2); Carbon Dioxide 30 mmol/L (22-29); Chloride 107 mmol/L (96-108); Creatinine Clr Calc Pharmacy 1.9; Estimated Glomerular Filt Rate 17; Glucose Random 133 mg/dL (60-115); Sodium 147 mmol/L (135-145)
[2020-05-09 08:01] LABS: Procalcitonin 0.27 ng/mL
[2020-05-09 08:31] LABS: Glucose, Whole Blood 121 mg/dL (60-115)
[2020-05-09] MEDS: Furosemide 40 MG TABLET PO (08:33)
[2020-05-09] MEDS: Metoprolol Succinate ER 50 MG TAB.ER.24H PO (08:34)
[2020-05-09] MEDS: amLODIPine Besylate 10 MG TABLET PO (08:34)
[2020-05-09] MEDS: Fluticasone/Vilanterol 200/25 BLST.W.DEV 1 PUFF INHALE (08:35)
[2020-05-09 12:05] LABS: Glucose, Whole Blood 127 mg/dL (60-115)
--- NOTE | 2020-05-09 14:34 | P.PNIM_ITS ---
Subjective Subjective Date of Service: 05/09/20 Interval History: Slightly more short of breath, O2 requirement up from 4 to 5L AF/RVR in 110s-120s this am No fever Physical Exam Vital Signs: Vital Signs: Last Vital Signs Temp 97.0 F 05/09/20 12:00 Pulse 20 L 05/09/20 12:00 Resp 20 05/09/20 12:00 BP 140/65 H 05/09/20 12:00 Pulse Ox 97 05/09/20 12:00 Body Mass Index 2.5 Gen: mildly tachypneic, chronically ill-appearing HEENT: sclera anicteric, moist mucus membranes Neck: supple Lungs: tachypneic, auscultation deferred due to COVID-19 Heart: irregularly irregular Abd: obese, soft, non-tender, non-distended Ext: no cyanosis, clubbing, or edema Skin: warm/well-perfused Neuro: alert and oriented x3, no focal findings Psych: appropriate affect Objective Data Current Medications Generic Name Dose Route Start Last Admin Trade Name Freq PRN Reason Stop Dose Admin Albuterol Sulfate 2 puff 05/07/20 11:19 Albuterol Sulfate 90 Mcg 8 Gm Inhaler INHALE RQ4H PRN wheezing Amlodipine Besylate 10 mg 05/07/20 11:30 05/09/20 08:34 Amlodipine Besylate 10 Mg Tablet PO 10 mg DAILY JASMINE Administration Protocol Fluticasone/Vilanterol 1 puff 05/09/20 08:00 05/09/20 08:35 Fluticasone/Vilanterol 200/25 Blst.W.Dev INHALE 1 puff RDAILY JASMINE Administration Furosemide 40 mg 05/09/20 09:00 05/09/20 08:33 Furosemide 40 Mg Tablet PO 40 mg DAILY JASMINE Administration Protocol Guaifenesin 10 ml 05/07/20 21:15 05/09/20 03:21 Guaifenesin 200 Mg/10 Ml 10 Ml Liquid PO 10 ml Q4H PRN Administration Cough Heparin Sodium (Porcine) 5,000 unit 05/06/20 14:30 05/09/20 05:11 Heparin Sodium,Porcine 5,000 Unit/Ml Vial SUBCUT 5,000 unit Q8H JASMINE Administration Ampicillin Sodium/Sulbactam 100 mls @ 200 mls/hr 05/06/20 18:00 05/09/20 05:42 Sodium 3 gm/ Sodium Chloride IV Infused Q12H [facility] Infusion Metoprolol Tartrate 5 mg/ 55 mls @ 220 mls/hr 05/09/20 14:26 Sodium Chloride IV 05/09/20 14:40 ONCE ONE Insulin Human Lispro 0 unit 05/07/20 16:30 05/09/20 11:51 Insulin Lispro 100 Unit/Ml 3 Ml Vial SUBCUT Not Given QIDACHS [facility] Protocol Metoprolol Succinate 75 mg 05/10/20 09:00 Metoprolol Succinate Er 50 Mg Tab.Er.24h PO DAILY [facility] Protocol Pharmacy Consult 1 each 05/06/20 16:09 Consult Rx Perform Med Rec MISCELLANE ONCE PRN Consult order Tiotropium [place] 1 puff 05/08/20 08:00 05/09/20 11:03 Tiotropium [place] 18 Mcg Cap.W.Dev INHALE 1 puff RDAILY [facility] Administration Labs CBC & Chem 7: 05/09/20 06:38 05/09/20 06:38 Labs: Laboratory Results - last 24 hr 05/08/20 05/08/20 05/09/20 15:17 19:32 06:38 WBC RBC Hgb Hct MCV MCH MCHC RDW Plt Count MPV Immature Gran % (Auto) Neut % (Auto) Lymph % (Auto) [place] % (Auto) Eos % (Auto) Baso % (Auto) Lymph # (Auto) [place] # (Auto) Eos # (Auto) Baso # (Auto) Abs Immat Gran (auto) Absolute Neuts (auto) Absolute Nucleated RBC Nucleated RBC % (auto) Sodium Potassium Chloride Carbon Dioxide Anion Gap BUN Creatinine Estim Creat Clear Calc Estimated GFR POC Glucose 129 H 136 H Random Glucose Calcium B-Natriuretic Peptide Procalcitonin 0.27 05/09/20 05/09/20 05/09/20 06:38 06:38 06:38 WBC 11.2 H RBC 2.70 L Hgb 8.0 L Hct 27.3 L MCV 101.1 H MCH 29.6 MCHC 29.3 L RDW 17.7 H Plt Count 130 L MPV 10.6 Immature Gran % (Auto) 3.0 H Neut % (Auto) 77.3 H Lymph % (Auto) 9.6 L [place] % (Auto) 9.3 Eos % (Auto) 0.4 Baso % (Auto) 0.4 Lymph # (Auto) 1.1 L [place] # (Auto) 1.0 Eos # (Auto) 0.1 Baso # (Auto) 0.0 Abs Immat Gran (auto) 0.34 H Absolute Neuts (auto) 8.7 H Absolute Nucleated RBC 0.020 H Nucleated RBC % (auto) 0.2 Sodium 147 H Potassium 4.0 Chloride 107 Carbon Dioxide 30 H Anion Gap 14 BUN 50 H Creatinine 2.75 H Estim Creat Clear Calc 1.9 Estimated GFR 17 POC Glucose Random Glucose 133 H D Calcium 8.2 L B-Natriuretic Peptide 482 H Procalcitonin 05/09/20 05/09/20 08:19 11:50 WBC RBC Hgb Hct MCV MCH MCHC RDW Plt Count MPV Immature Gran % (Auto) Neut % (Auto) Lymph % (Auto) [place] % (Auto) Eos % (Auto) Baso % (Auto) Lymph # (Auto) [place] # (Auto) Eos # (Auto) Baso # (Auto) Abs Immat Gran (auto) Absolute Neuts (auto) Absolute Nucleated RBC Nucleated RBC % (auto) Sodium Potassium Chloride Carbon Dioxide Anion Gap BUN Creatinine Estim Creat Clear Calc Estimated GFR POC Glucose 121 H 127 H Random Glucose Calcium B-Natriuretic Peptide Procalcitonin ITS Impressions Chest X-Ray 05/06/20 00:00 IMPRESSION: 1. ET tube 4.3 cm above sen. 2. NG tube extending below diaphragm. 3. No significant change right chest consolidation and volume loss. Chest X-Ray 05/06/20 00:00 IMPRESSION: 1. Endotracheal tube 3.5 cm above the sen. 2. Nasogastric tube tip in stomach. 3. Improved aeration of right lung since prior chest x-ray today. There is persistent density at the right lung base however due to pleural effusion and probable consolidation/atelectasis. Chest X-Ray 05/06/20 13:04 IMPRESSION: 1. Significant increased opacity right hemithorax when compared with recent study 05/03/2020. There is associated volume loss consistent with element of superimposed atelectasis to the prior airspace disease and probable effusion. 2. Subsegmental atelectasis left base. Microbiology Microbiology Results: Microbiology 05/06/20 13:11 Blood - Venous Blood Culture - Preliminary No growth after 48 hours. 05/06/20 13:07 Blood - Venous Blood Culture - Preliminary No growth after 48 hours. 05/06/20 00:00 Blood - Venous Blood Culture - Final 05/06/20 00:00 Blood - Venous Blood Culture - Final Assessment and Plan (1) Acute on chronic respiratory failure with hypoxia and hypercapnia: Status: Acute (2) COVID-19: Status: Acute (3) Obstructive sleep apnea: Status: Acute (4) Morbid obesity: Status: Acute (5) Chronic kidney disease (CKD): Status: Acute (6) COPD (chronic obstructive pulmonary disease): Status: Acute (7) Atelectasis of right lung: Status: Acute Assessment and Plan: hospital d#4 70yo F with COPD, chronic hypoxic resp failure on 3-4L O2, TORRIE, obesity, chronic HFpEF, CKD, HTN, DM2, AF recently discharged from [facility] to [facility] for [id number] acute hypoxic respiratory failure admitted to ICU with acute hypoxic/hypercapneic respiratory failure requiring intubation/mechanical ventilation, white-out of R lung due to atelectasis from mucus plugging, s/p bronchoscopy with clearance of R-sided mucus plugs # AF/RVR - give 5 mg IV metoprolol tartrate, increase metoprolol succinate to 75 mg/d # acute/chronic hypoxic/hypercapneic respiratory failure - supplemental O2, wean as tolerated # TORRIE - nocturnal CPAP -> refusing # possible aspiration - amp/sulbactam d#4 - formal HUMAN RESOURCES OPERATIONS DIRECTOR consult ordered # hyperNa - will give another 500 mL of D5W, recheck BMP in am # acute/chronic HFpEF - back on PO furosemide # HTN - continue amlodipine + metoprolol succinate # CKD4 - Cr stable at baseline # COPD - continue LAMA, ICS/LABA, prn NINO # DM2 - correction-dose lispro # dispo - plan return to [facility]
[2020-05-09] MEDS: Dextrose 5 % 500 ML 50 ML IVCONT (15:04)
[2020-05-09 16:43] LABS: Glucose, Whole Blood 103 mg/dL (60-115)
--- NOTE | 2020-05-09 18:35 | PC.NURSE ---
Patient converted from AFib RVR to NS. Remains on 5L NC, desats with exertion. Patient refused to get out of bed and to receive chest PT. Incontinent of urine and stool. Placed on D5 infusion for hypernatremia. Vitals stable. will continue to monitor.
[2020-05-09 21:14] LABS: Glucose, Whole Blood 107 mg/dL (60-115)
[2020-05-10 03:21] VITALS: BP 154/60; PULSE 81; RESP 19; TEMP 36.6; O2SAT 93
[2020-05-10] MEDS: Heparin Sodium,Porcine 5,000 UNIT/ML VIAL 5000 UNIT SUBCUT ×2 (05:31→13:39)
[2020-05-10] MEDS: guaiFENesin 200 MG/10 ML 10 ML LIQUID PO (06:04)
[2020-05-10 06:58] LABS: Anion Gap 16 (12-20); Blood Urea Nitrogen 54 mg/dL (9-16); Calcium 8.2 mg/dL (8.4-10.2); Carbon Dioxide 28 mmol/L (22-29); Chloride 104 mmol/L (96-108); Creatinine Clr Calc Pharmacy 1.8; Estimated Glomerular Filt Rate 16; Glucose Random 91 mg/dL (60-115); Sodium 144 mmol/L (135-145)
[2020-05-10 07:36] VITALS: BP 115/43; PULSE 87; RESP 20; TEMP 36.6; O2SAT 95
[2020-05-10 07:40] LABS: Glucose, Whole Blood 87 mg/dL (60-115)
[2020-05-10 07:52] LABS: Estimated Average Glucose 100 mg/dL; Hemoglobin A1c % 5.1 %
[2020-05-10] MEDS: Fluticasone/Vilanterol 200/25 BLST.W.DEV 1 PUFF INHALE (07:59)
--- NOTE | 2020-05-10 08:20 | MHC.CM.PN ---
at this time dc plan remains the same, for patient to return to [facility] when medically stable. a ref. for this has been made today. cm to cont. to follow.
[2020-05-10 08:42] VITALS: BP 115/43; PULSE 87
[2020-05-10] MEDS: Metoprolol Succinate ER 50 MG TAB.ER.24H 75 MG PO (08:42)
[2020-05-10 08:43] VITALS: BP 115/43; PULSE 87
[2020-05-10] MEDS: Furosemide 40 MG TABLET PO (08:43)
[2020-05-10] MEDS: amLODIPine Besylate 10 MG TABLET PO (08:43)
--- NOTE | 2020-05-10 10:12 | PM.DS ---
DS: Providers Provider Date of Service: 05/10/20 Date of admission: 05/06/20 14:20 Primary care physician: Unknown Physician DS: Diagnosis Discharge Diagnosis (1) Acute on chronic respiratory failure with hypoxia and hypercapnia: Status: Acute (2) Aspiration pneumonia: Status: Acute (3) Atrial fibrillation with RVR: Status: Acute (4) Obstructive sleep apnea: Status: Acute (5) Morbid obesity: Status: Acute (6) Chronic kidney disease (CKD): Status: Acute (7) COPD (chronic obstructive pulmonary disease): Status: Acute (8) Atelectasis of right lung: Status: Acute (9) Hypernatremia: Status: Acute DS: Medications Discharge Medications Home Medications: Home Medications Medication Instructions Recorded Confirmed Baqsimi 3 mg INTRANASAL 05/06/20 Lantus Solostar U-100 Insulin 10 unit SUBCUT QAM 05/06/20 05/06/20 Spiriva with HandiHaler 1 cap INHALATION DAILY 05/06/20 05/06/20 albuterol sulfate [ProAir HFA] 2 puff INHALATION Q4-6H PRN 05/06/20 05/06/20 atorvastatin 20 mg PO BEDTIME 05/06/20 05/06/20 budesonide-formoterol [Symbicort] 2 puff INHALATION BID 05/06/20 05/06/20 furosemide 40 mg PO DAILY 05/06/20 05/06/20 insulin aspart U-100 [Novolog 0 unit SUBCUT TID 05/06/20 05/06/20 Flexpen U-100 Insulin] montelukast 10 mg PO DAILY 05/06/20 05/06/20 omeprazole 20 mg PO DAILY 05/06/20 05/06/20 Previous Rx's Medication Instructions Recorded amlodipine 10 mg PO DAILY #1 tab 05/10/20 amoxicillin-pot clavulanate 1 tab PO Q12H #10 tab 05/10/20 [Augmentin] metoprolol succinate 75 mg PO DAILY #30 tab 05/10/20 DS: Summary Hospital Course Hospital Course: HPI 70-year-old lady with underlying history of COPD on supplemental oxygen 3-4 L, obstructive sleep apnea, obesity, chronic diastolic congestive heart failure, chronic kidney disease, hypertension, diabetes mellitus with recent admission to [facility] in the beginning of March of 2020 for COVID-19 related hypoxic respiratory failure in AFib with RVR admitted on 05/06/2020 from [facility] with confusion and dyspnea. Patient was noted to be in acute hypoxic and hypercapnic respiratory failure with significant acidosis requiring intubation and ventilatory support. Her x-ray demonstrated white out of the right lung secondary to atelectasis with mucus plugging. Patient has been transferred to intensive care unit and has had bedside bronchoscopy with clearance of the right-sided mucus plugs. She was started on Unasyn for possible aspiration component. Hospital Course: Was initially treated in the intensive care unit for acute on chronic respiratory failure with hypoxia and hypercarbia. She was intubated and was on mechanical ventilation. She underwent a bronchoscopy for right lung whiteout due to atelectasis from mucous plugging. Fortunately she was able to be weaned to nasal cannula and is tolerating 4 L. she was also empirically treated for presumed aspiration pneumonia with IV Unasyn and will be discharged with 5 more days of oral Augmentin. Her hospital course was further complicated by AFib with RVR requiring IV metoprolol. Subsequently her oral metoprolol succinate was increased from 50-75 mg with improvement in her rate. She was re-evaluated by Physical therapy who recommended short term rehab. She was also seen by speech therapy who recommended ground / mechanical diet. Time Spent with Patient Time attestation: Total time spent providing and/or coordinating discharge services: Discharge coordination time: Greater than 30 minutes Physical Exam Vital Signs: Vital Signs: Last Vital Signs Temp 97.9 F 05/10/20 07:36 Pulse 87 05/10/20 08:43 Resp 20 05/10/20 07:36 BP 115/43 L 05/10/20 08:43 Pulse Ox 95 05/10/20 07:36 Body Mass Index 2.5 Const: Other: Gen: no distress, chornically ill appearing HEENT: sclera anicteric, moist mucus membranes Neck: supple Lungs: tachypneic, auscultation deferred due to COVID-19 Heart: irregularly irregular Abd: obese, soft, non-tender, non-distended Ext: no cyanosis, clubbing, or edema Skin: warm/well-perfused Neuro: alert and oriented x3, no focal findings Psych: appropriate affect DS: Data Data Completed and Pending Labs on day of discharge: Laboratory Tests 05/06/20 05/06/2021 13:07 13:08 13:09 WBC 13.0 H RBC 2.78 L Hgb 8.3 L Hct 29.1 L MCV 104.7 H MCH 29.9 MCHC 28.5 L RDW 17.4 H Plt Count 186 MPV 10.3 Immature Gran % (Auto) Cancelled Neut % (Auto) Cancelled Lymph % (Auto) Cancelled [place] % (Auto) Cancelled Eos % (Auto) Cancelled Baso % (Auto) Cancelled Lymph # (Auto) Cancelled [place] # (Auto) Cancelled Eos # (Auto) Cancelled Baso # (Auto) Cancelled Abs Immat Gran (auto) Cancelled Absolute Neuts (auto) Cancelled Absolute Nucleated RBC 0.020 H Nucleated RBC % (auto) 0.2 Neutrophils % (Manual) 88 H Band Neutrophils % 4 Lymphocytes % (Manual) 4 L Monocytes % (Manual) 4 Abs Neuts (Manual) 12.0 H Lymphocytes # (Manual) 0.5 L Monocytes # (Manual) 0.5 Platelet Estimate NORMAL Plt Morphology Comment NORMAL RBC Morphology NOTED Polychromasia 1+ Macrocytosis 1+ PT INR ABG pH ABG pCO2 ABG pO2 ABG HCO3 ABG O2 Saturation ABG Base Excess VBG pH VBG pCO2 VBG pO2 VBG HCO3 VBG O2 Saturation VBG Base Excess Oxygen Given Sodium Potassium Chloride Carbon Dioxide Anion Gap BUN Creatinine Estim Creat Clear Calc Estimated GFR POC Glucose Random Glucose Estimat Average Glucose Hemoglobin A1c % Lactic Acid 0.3 L Calcium Phosphorus Magnesium Ferritin Total Bilirubin AST ALT Alkaline Phosphatase Lactate Dehydrogenase Troponin I High Sens 5.8 B-Natriuretic Peptide 204 H Total Protein Albumin Procalcitonin Coronavirus (PCR) Influenza Type A (PCR) Influenza Type B (PCR) RSV RNA Qual (PCR) Blood Type Antibody Screen 05/06/20 05/06/20 05/06/20 13:09 13:09 13:25 WBC RBC Hgb Hct MCV MCH MCHC RDW Plt Count MPV Immature Gran % (Auto) Neut % (Auto) Lymph % (Auto) [place] % (Auto) Eos % (Auto) Baso % (Auto) Lymph # (Auto) [place] # (Auto) Eos # (Auto) Baso # (Auto) Abs Immat Gran (auto) Absolute Neuts (auto) Absolute Nucleated RBC Nucleated RBC % (auto) Neutrophils % (Manual) Band Neutrophils % Lymphocytes % (Manual) Monocytes % (Manual) Abs Neuts (Manual) Lymphocytes # (Manual) Monocytes # (Manual) Platelet Estimate Plt Morphology Comment RBC Morphology Polychromasia Macrocytosis PT 12.2 INR 1.0 ABG pH 7.10 L* ABG pCO2 93 H* ABG pO2 100 ABG HCO3 28 H ABG O2 Saturation 97.3 ABG Base Excess -2.9 VBG pH VBG pCO2 VBG pO2 VBG HCO3 VBG O2 Saturation VBG Base Excess Oxygen Given 4 L Sodium Cancelled Potassium Cancelled Chloride Cancelled Carbon Dioxide Cancelled Anion Gap Cancelled BUN Cancelled Creatinine Cancelled Estim Creat Clear Calc Cancelled Estimated GFR Cancelled POC Glucose Random Glucose Cancelled Estimat Average Glucose Hemoglobin A1c % Lactic Acid Calcium Cancelled Phosphorus Magnesium Ferritin Total Bilirubin Cancelled AST Cancelled ALT Cancelled Alkaline Phosphatase Cancelled Lactate Dehydrogenase Cancelled Troponin I High Sens B-Natriuretic Peptide Total Protein Cancelled Albumin Cancelled Procalcitonin Coronavirus (PCR) Influenza Type A (PCR) Influenza Type B (PCR) RSV RNA Qual (PCR) Blood Type Antibody Screen 05/06/20 05/06/20 05/06/20 13:35 13:50 15:14 WBC RBC Hgb Hct MCV MCH MCHC RDW Plt Count MPV Immature Gran % (Auto) Neut % (Auto) Lymph % (Auto) [place] % (Auto) Eos % (Auto) Baso % (Auto) Lymph # (Auto) [place] # (Auto) Eos # (Auto) Baso # (Auto) Abs Immat Gran (auto) Absolute Neuts (auto) Absolute Nucleated RBC Nucleated RBC % (auto) Neutrophils % (Manual) Band Neutrophils % Lymphocytes % (Manual) Monocytes % (Manual) Abs Neuts (Manual) Lymphocytes # (Manual) Monocytes # (Manual) Platelet Estimate Plt Morphology Comment RBC Morphology Polychromasia Macrocytosis PT INR ABG pH ABG pCO2 ABG pO2 ABG HCO3 ABG O2 Saturation ABG Base Excess VBG pH VBG pCO2 VBG pO2 VBG HCO3 VBG O2 Saturation VBG Base Excess Oxygen Given Sodium Potassium Chloride Carbon Dioxide Anion Gap BUN Creatinine Estim Creat Clear Calc Estimated GFR POC Glucose 153 H Random Glucose Estimat Average Glucose Hemoglobin A1c % Lactic Acid Calcium Phosphorus Magnesium Ferritin Total Bilirubin AST ALT Alkaline Phosphatase Lactate Dehydrogenase Troponin I High Sens 4.9 B-Natriuretic Peptide 136 H Total Protein Albumin Procalcitonin Coronavirus (PCR) POSITIVE A Influenza Type A (PCR) NEGATIVE Influenza Type B (PCR) NEGATIVE RSV RNA Qual (PCR) NEGATIVE Blood Type Antibody Screen 05/06/20 05/06/20 05/06/20 15:14 15:14 16:15 WBC RBC Hgb Hct MCV MCH MCHC RDW Plt Count MPV Immature Gran % (Auto) Neut % (Auto) Lymph % (Auto) [place] % (Auto) Eos % (Auto) Baso % (Auto) Lymph # (Auto) [place] # (Auto) Eos # (Auto) Baso # (Auto) Abs Immat Gran (auto) Absolute Neuts (auto) Absolute Nucleated RBC Nucleated RBC % (auto) Neutrophils % (Manual) Band Neutrophils % Lymphocytes % (Manual) Monocytes % (Manual) Abs Neuts (Manual) Lymphocytes # (Manual) Monocytes # (Manual) Platelet Estimate Plt Morphology Comment RBC Morphology Polychromasia Macrocytosis PT INR ABG pH 7.29 L ABG pCO2 58 H ABG pO2 64 L ABG HCO3 27 H ABG O2 Saturation 94.8 ABG Base Excess 0.2 VBG pH VBG pCO2 VBG pO2 VBG HCO3 VBG O2 Saturation VBG Base Excess Oxygen Given 50% Sodium 145 Potassium 4.7 Chloride 109 H Carbon Dioxide 28 Anion Gap 13 BUN 51 H Creatinine 3.06 H Estim Creat Clear Calc 18.3 Estimated GFR 15 POC Glucose Random Glucose 177 H D Estimat Average Glucose Hemoglobin A1c % Lactic Acid Calcium 8.0 L Phosphorus Magnesium Ferritin 419 H Total Bilirubin 0.3 AST 16 D ALT 12 Alkaline Phosphatase 68 Lactate Dehydrogenase 311 H Troponin I High Sens B-Natriuretic Peptide Total Protein 5.6 L Albumin 2.4 L Procalcitonin 0.32 Coronavirus (PCR) Influenza Type A (PCR) Influenza Type B (PCR) RSV RNA Qual (PCR) Blood Type Antibody Screen 05/06/20 05/06/20 05/07/20 17:10 21:07 00:33 WBC RBC Hgb Hct MCV MCH MCHC RDW Plt Count MPV Immature Gran % (Auto) Neut % (Auto) Lymph % (Auto) [place] % (Auto) Eos % (Auto) Baso % (Auto) Lymph # (Auto) [place] # (Auto) Eos # (Auto) Baso # (Auto) Abs Immat Gran (auto) Absolute Neuts (auto) Absolute Nucleated RBC Nucleated RBC % (auto) Neutrophils % (Manual) Band Neutrophils % Lymphocytes % (Manual) Monocytes % (Manual) Abs Neuts (Manual) Lymphocytes # (Manual) Monocytes # (Manual) Platelet Estimate Plt Morphology Comment RBC Morphology Polychromasia Macrocytosis PT INR ABG pH ABG pCO2 ABG pO2 ABG HCO3 ABG O2 Saturation ABG Base Excess VBG pH 7.45 H VBG pCO2 41 VBG pO2 30 VBG HCO3 27 VBG O2 Saturation 66.0 VBG Base Excess 3.1 Oxygen Given Sodium Potassium Chloride Carbon Dioxide Anion Gap BUN Creatinine Estim Creat Clear Calc Estimated GFR POC Glucose 157 H 138 H Random Glucose Estimat Average Glucose Hemoglobin A1c % Lactic Acid Calcium Phosphorus Magnesium Ferritin Total Bilirubin AST ALT Alkaline Phosphatase Lactate Dehydrogenase Troponin I High Sens B-Natriuretic Peptide Total Protein Albumin Procalcitonin Coronavirus (PCR) Influenza Type A (PCR) Influenza Type B (PCR) RSV RNA Qual (PCR) Blood Type Antibody Screen 05/07/20 05/07/20 05/07/20 05:44 05:44 05:44 WBC 10.8 RBC 2.37 L Hgb 7.0 L* Hct 22.9 L D MCV 96.6 D MCH 29.5 MCHC 30.6 L RDW 17.2 H Plt Count 151 L MPV 10.3 Immature Gran % (Auto) 4.4 H Neut % (Auto) 88.1 H Lymph % (Auto) 4.2 L [place] % (Auto) 3.2 Eos % (Auto) 0.0 Baso % (Auto) 0.1 Lymph # (Auto) 0.5 L [place] # (Auto) 0.3 Eos # (Auto) 0.0 Baso # (Auto) 0.0 Abs Immat Gran (auto) 0.47 H Absolute Neuts (auto) 9.5 H Absolute Nucleated RBC 0.030 H Nucleated RBC % (auto) 0.3 H Neutrophils % (Manual) Band Neutrophils % Lymphocytes % (Manual) Monocytes % (Manual) Abs Neuts (Manual) Lymphocytes # (Manual) Monocytes # (Manual) Platelet Estimate Plt Morphology Comment RBC Morphology Polychromasia Macrocytosis PT INR ABG pH ABG pCO2 ABG pO2 ABG HCO3 ABG O2 Saturation ABG Base Excess VBG pH 7.48 H VBG pCO2 33 VBG pO2 37 VBG HCO3 24 VBG O2 Saturation 80.7 VBG Base Excess 0.6 Oxygen Given Sodium 146 H Potassium 4.2 Chloride 109 H Carbon Dioxide 20 L Anion Gap 21 H BUN 56 H Creatinine 2.79 H Estim Creat Clear Calc 20.0 Estimated GFR 17 POC Glucose Random Glucose 109 D Estimat Average Glucose Hemoglobin A1c % Lactic Acid Calcium 8.3 L Phosphorus 1.6 L Magnesium 2.1 Ferritin Total Bilirubin AST ALT Alkaline Phosphatase Lactate Dehydrogenase Troponin I High Sens B-Natriuretic Peptide Total Protein Albumin 2.7 L Procalcitonin Coronavirus (PCR) Influenza Type A (PCR) Influenza Type B (PCR) RSV RNA Qual (PCR) Blood Type Antibody Screen 05/07/20 05/07/20 05/07/20 08:15 11:42 14:17 WBC RBC Hgb Hct MCV MCH MCHC RDW Plt Count MPV Immature Gran % (Auto) Neut % (Auto) Lymph % (Auto) [place] % (Auto) Eos % (Auto) Baso % (Auto) Lymph # (Auto) [place] # (Auto) Eos # (Auto) Baso # (Auto) Abs Immat Gran (auto) Absolute Neuts (auto) Absolute Nucleated RBC Nucleated RBC % (auto) Neutrophils % (Manual) Band Neutrophils % Lymphocytes % (Manual) Monocytes % (Manual) Abs Neuts (Manual) Lymphocytes # (Manual) Monocytes # (Manual) Platelet Estimate Plt Morphology Comment RBC Morphology Polychromasia Macrocytosis PT INR ABG pH ABG pCO2 ABG pO2 ABG HCO3 ABG O2 Saturation ABG Base Excess VBG pH VBG pCO2 VBG pO2 VBG HCO3 VBG O2 Saturation VBG Base Excess Oxygen Given Sodium Potassium Chloride Carbon Dioxide Anion Gap BUN Creatinine Estim Creat Clear Calc Estimated GFR POC Glucose 114 131 H 160 H Random Glucose Estimat Average Glucose Hemoglobin A1c % Lactic Acid Calcium Phosphorus Magnesium Ferritin Total Bilirubin AST ALT Alkaline Phosphatase Lactate Dehydrogenase Troponin I High Sens B-Natriuretic Peptide Total Protein Albumin Procalcitonin Coronavirus (PCR) Influenza Type A (PCR) Influenza Type B (PCR) RSV RNA Qual (PCR) Blood Type Antibody Screen 05/07/20 05/07/20 05/08/20 16:20 20:40 05:28 WBC 11.0 H RBC 2.57 L Hgb 7.5 L Hct 25.4 L MCV 98.8 H MCH 29.2 MCHC 29.5 L RDW 17.9 H Plt Count 158 L MPV 10.0 Immature Gran % (Auto) 4.8 H Neut % (Auto) 81.4 H Lymph % (Auto) 6.8 L [place] % (Auto) 6.8 Eos % (Auto) 0.0 Baso % (Auto) 0.2 Lymph # (Auto) 0.8 L [place] # (Auto) 0.7 Eos # (Auto) 0.0 Baso # (Auto) 0.0 Abs Immat Gran (auto) 0.53 H Absolute Neuts (auto) 8.9 H Absolute Nucleated RBC 0.020 H Nucleated RBC % (auto) 0.2 Neutrophils % (Manual) Band Neutrophils % Lymphocytes % (Manual) Monocytes % (Manual) Abs Neuts (Manual) Lymphocytes # (Manual) Monocytes # (Manual) Platelet Estimate Plt Morphology Comment RBC Morphology Polychromasia Macrocytosis PT INR ABG pH ABG pCO2 ABG pO2 ABG HCO3 ABG O2 Saturation ABG Base Excess VBG pH VBG pCO2 VBG pO2 VBG HCO3 VBG O2 Saturation VBG Base Excess Oxygen Given Sodium Potassium Chloride Carbon Dioxide Anion Gap BUN Creatinine Estim Creat Clear Calc Estimated GFR POC Glucose 104 107 Random Glucose Estimat Average Glucose Hemoglobin A1c % Lactic Acid Calcium Phosphorus Magnesium Ferritin Total Bilirubin AST ALT Alkaline Phosphatase Lactate Dehydrogenase Troponin I High Sens B-Natriuretic Peptide Total Protein Albumin Procalcitonin Coronavirus (PCR) Influenza Type A (PCR) Influenza Type B (PCR) RSV RNA Qual (PCR) Blood Type Antibody Screen 05/08/20 05/08/20 05/08/20 05:28 05:28 07:31 WBC RBC Hgb Hct MCV MCH MCHC RDW Plt Count MPV Immature Gran % (Auto) Neut % (Auto) Lymph % (Auto) [place] % (Auto) Eos % (Auto) Baso % (Auto) Lymph # (Auto) [place] # (Auto) Eos # (Auto) Baso # (Auto) Abs Immat Gran (auto) Absolute Neuts (auto) Absolute Nucleated RBC Nucleated RBC % (auto) Neutrophils % (Manual) Band Neutrophils % Lymphocytes % (Manual) Monocytes % (Manual) Abs Neuts (Manual) Lymphocytes # (Manual) Monocytes # (Manual) Platelet Estimate Plt Morphology Comment RBC Morphology Polychromasia Macrocytosis PT INR ABG pH ABG pCO2 ABG pO2 ABG HCO3 ABG O2 Saturation ABG Base Excess VBG pH 7.32 VBG pCO2 62 VBG pO2 38 VBG HCO3 31 VBG O2 Saturation 71.1 VBG Base Excess 4.1 Oxygen Given Sodium 150 H Potassium 3.9 Chloride 109 H Carbon Dioxide 28 Anion Gap 17 BUN 50 H Creatinine 2.62 H Estim Creat Clear Calc 21.3 Estimated GFR 18 POC Glucose 84 Random Glucose 90 Estimat Average Glucose Hemoglobin A1c % Lactic Acid Calcium 8.2 L Phosphorus 3.8 Magnesium 2.0 Ferritin Total Bilirubin AST ALT Alkaline Phosphatase Lactate Dehydrogenase Troponin I High Sens B-Natriuretic Peptide Total Protein Albumin 3.4 L D Procalcitonin Coronavirus (PCR) Influenza Type A (PCR) Influenza Type B (PCR) RSV RNA Qual (PCR) Blood Type Antibody Screen 05/08/20 05/08/20 05/08/20 10:19 11:03 15:17 WBC RBC Hgb Hct MCV MCH MCHC RDW Plt Count MPV Immature Gran % (Auto) Neut % (Auto) Lymph % (Auto) [place] % (Auto) Eos % (Auto) Baso % (Auto) Lymph # (Auto) [place] # (Auto) Eos # (Auto) Baso # (Auto) Abs Immat Gran (auto) Absolute Neuts (auto) Absolute Nucleated RBC Nucleated RBC % (auto) Neutrophils % (Manual) Band Neutrophils % Lymphocytes % (Manual) Monocytes % (Manual) Abs Neuts (Manual) Lymphocytes # (Manual) Monocytes # (Manual) Platelet Estimate Plt Morphology Comment RBC Morphology Polychromasia Macrocytosis PT INR ABG pH ABG pCO2 ABG pO2 ABG HCO3 ABG O2 Saturation ABG Base Excess VBG pH VBG pCO2 VBG pO2 VBG HCO3 VBG O2 Saturation VBG Base Excess Oxygen Given Sodium Potassium Chloride Carbon Dioxide Anion Gap BUN Creatinine Estim Creat Clear Calc Estimated GFR POC Glucose 111 129 H Random Glucose Estimat Average Glucose Hemoglobin A1c % Lactic Acid Calcium Phosphorus Magnesium Ferritin Total Bilirubin AST ALT Alkaline Phosphatase Lactate Dehydrogenase Troponin I High Sens B-Natriuretic Peptide Total Protein Albumin Procalcitonin Coronavirus (PCR) Influenza Type A (PCR) Influenza Type B (PCR) RSV RNA Qual (PCR) Blood Type O Positive Antibody Screen NEGATIVE 05/08/20 05/09/20 05/09/20 19:32 06:38 06:38 WBC RBC Hgb Hct MCV MCH MCHC RDW Plt Count MPV Immature Gran % (Auto) Neut % (Auto) Lymph % (Auto) [place] % (Auto) Eos % (Auto) Baso % (Auto) Lymph # (Auto) [place] # (Auto) Eos # (Auto) Baso # (Auto) Abs Immat Gran (auto) Absolute Neuts (auto) Absolute Nucleated RBC Nucleated RBC % (auto) Neutrophils % (Manual) Band Neutrophils % Lymphocytes % (Manual) Monocytes % (Manual) Abs Neuts (Manual) Lymphocytes # (Manual) Monocytes # (Manual) Platelet Estimate Plt Morphology Comment RBC Morphology Polychromasia Macrocytosis PT INR ABG pH ABG pCO2 ABG pO2 ABG HCO3 ABG O2 Saturation ABG Base Excess VBG pH VBG pCO2 VBG pO2 VBG HCO3 VBG O2 Saturation VBG Base Excess Oxygen Given Sodium Potassium Chloride Carbon Dioxide Anion Gap BUN Creatinine Estim Creat Clear Calc Estimated GFR POC Glucose 136 H Random Glucose Estimat Average Glucose Hemoglobin A1c % Lactic Acid Calcium Phosphorus Magnesium Ferritin Total Bilirubin AST ALT Alkaline Phosphatase Lactate Dehydrogenase Troponin I High Sens B-Natriuretic Peptide 482 H Total Protein Albumin Procalcitonin 0.27 Coronavirus (PCR) Influenza Type A (PCR) Influenza Type B (PCR) RSV RNA Qual (PCR) Blood Type Antibody Screen 05/09/20 05/09/20 05/09/20 06:38 06:38 08:19 WBC 11.2 H RBC 2.70 L Hgb 8.0 L Hct 27.3 L MCV 101.1 H MCH 29.6 MCHC 29.3 L RDW 17.7 H Plt Count 130 L MPV 10.6 Immature Gran % (Auto) 3.0 H Neut % (Auto) 77.3 H Lymph % (Auto) 9.6 L [place] % (Auto) 9.3 Eos % (Auto) 0.4 Baso % (Auto) 0.4 Lymph # (Auto) 1.1 L [place] # (Auto) 1.0 Eos # (Auto) 0.1 Baso # (Auto) 0.0 Abs Immat Gran (auto) 0.34 H Absolute Neuts (auto) 8.7 H Absolute Nucleated RBC 0.020 H Nucleated RBC % (auto) 0.2 Neutrophils % (Manual) Band Neutrophils % Lymphocytes % (Manual) Monocytes % (Manual) Abs Neuts (Manual) Lymphocytes # (Manual) Monocytes # (Manual) Platelet Estimate Plt Morphology Comment RBC Morphology Polychromasia Macrocytosis PT INR ABG pH ABG pCO2 ABG pO2 ABG HCO3 ABG O2 Saturation ABG Base Excess VBG pH VBG pCO2 VBG pO2 VBG HCO3 VBG O2 Saturation VBG Base Excess Oxygen Given Sodium 147 H Potassium 4.0 Chloride 107 Carbon Dioxide 30 H Anion Gap 14 BUN 50 H Creatinine 2.75 H Estim Creat Clear Calc 1.9 Estimated GFR 17 POC Glucose 121 H Random Glucose 133 H D Estimat Average Glucose Hemoglobin A1c % Lactic Acid Calcium 8.2 L Phosphorus Magnesium Ferritin Total Bilirubin AST ALT Alkaline Phosphatase Lactate Dehydrogenase Troponin I High Sens B-Natriuretic Peptide Total Protein Albumin Procalcitonin Coronavirus (PCR) Influenza Type A (PCR) Influenza Type B (PCR) RSV RNA Qual (PCR) Blood Type Antibody Screen 05/09/20 05/09/20 05/09/20 11:50 16:35 21:11 WBC RBC Hgb Hct MCV MCH MCHC RDW Plt Count MPV Immature Gran % (Auto) Neut % (Auto) Lymph % (Auto) [place] % (Auto) Eos % (Auto) Baso % (Auto) Lymph # (Auto) [place] # (Auto) Eos # (Auto) Baso # (Auto) Abs Immat Gran (auto) Absolute Neuts (auto) Absolute Nucleated RBC Nucleated RBC % (auto) Neutrophils % (Manual) Band Neutrophils % Lymphocytes % (Manual) Monocytes % (Manual) Abs Neuts (Manual) Lymphocytes # (Manual) Monocytes # (Manual) Platelet Estimate Plt Morphology Comment RBC Morphology Polychromasia Macrocytosis PT INR ABG pH ABG pCO2 ABG pO2 ABG HCO3 ABG O2 Saturation ABG Base Excess VBG pH VBG pCO2 VBG pO2 VBG HCO3 VBG O2 Saturation VBG Base Excess Oxygen Given Sodium Potassium Chloride Carbon Dioxide Anion Gap BUN Creatinine Estim Creat Clear Calc Estimated GFR POC Glucose 127 H 103 107 Random Glucose Estimat Average Glucose Hemoglobin A1c % Lactic Acid Calcium Phosphorus Magnesium Ferritin Total Bilirubin AST ALT Alkaline Phosphatase Lactate Dehydrogenase Troponin I High Sens B-Natriuretic Peptide Total Protein Albumin Procalcitonin Coronavirus (PCR) Influenza Type A (PCR) Influenza Type B (PCR) RSV RNA Qual (PCR) Blood Type Antibody Screen 05/10/20 05/10/20 05/10/20 06:12 06:12 07:36 WBC RBC Hgb Hct MCV MCH MCHC RDW Plt Count MPV Immature Gran % (Auto) Neut % (Auto) Lymph % (Auto) [place] % (Auto) Eos % (Auto) Baso % (Auto) Lymph # (Auto) [place] # (Auto) Eos # (Auto) Baso # (Auto) Abs Immat Gran (auto) Absolute Neuts (auto) Absolute Nucleated RBC Nucleated RBC % (auto) Neutrophils % (Manual) Band Neutrophils % Lymphocytes % (Manual) Monocytes % (Manual) Abs Neuts (Manual) Lymphocytes # (Manual) Monocytes # (Manual) Platelet Estimate Plt Morphology Comment RBC Morphology Polychromasia Macrocytosis PT INR ABG pH ABG pCO2 ABG pO2 ABG HCO3 ABG O2 Saturation ABG Base Excess VBG pH VBG pCO2 VBG pO2 VBG HCO3 VBG O2 Saturation VBG Base Excess Oxygen Given Sodium 144 Potassium 4.0 Chloride 104 Carbon Dioxide 28 Anion Gap 16 BUN 54 H Creatinine 2.85 H Estim Creat Clear Calc 1.8 Estimated GFR 16 POC Glucose 87 Random Glucose 91 Estimat Average Glucose 100 Hemoglobin A1c % 5.1 Lactic Acid Calcium 8.2 L Phosphorus Magnesium Ferritin Total Bilirubin AST ALT Alkaline Phosphatase Lactate Dehydrogenase Troponin I High Sens B-Natriuretic Peptide Total Protein Albumin Procalcitonin Coronavirus (PCR) Influenza Type A (PCR) Influenza Type B (PCR) RSV RNA Qual (PCR) Blood Type Antibody Screen Preliminary micro results at discharge 05/06/20 13:11 Blood Culture - Preliminary Blood - Venous No growth after 48 hours. 05/06/20 13:07 Blood Culture - Preliminary Blood - Venous No growth after 48 hours. Discharge Plan Discharge Patient Disposition: er SNF Referrals: [facility] [Outside] Physician,Unknown [Primary Care Provider] - Discharge Medications: New metoprolol succinate 50 mg Tablet Extended Release 24 Hr 75 mg PO DAILY Qty: 30 RF: 0 amoxicillin-pot clavulanate [Augmentin] 500-125 mg tablet 1 tab PO Q12H Qty: 10 RF: 0 Continued furosemide 40 mg Tablet 40 mg PO DAILY RF: 0 albuterol sulfate [ProAir HFA] 90 mcg/actuation Hfa Aerosol Inhaler 2 puff INHALATION Q4-6H PRN (Reason: Shortness Of Breath) RF: 0 atorvastatin 20 mg Tablet 20 mg PO BEDTIME RF: 0 omeprazole 20 mg Capsule,Delayed Release(Dr/Ec) 20 mg PO DAILY RF: 0 montelukast 10 mg Tablet 10 mg PO DAILY RF: 0 insulin aspart U-100 [Novolog Flexpen U-100 Insulin] 100 unit/mL (3 mL) Insulin Pen 0 unit SUBCUT TID RF: 0 Spiriva with HandiHaler 18 mcg Capsule, W/Inhalation Device 1 cap INHALATION DAILY RF: 0 budesonide-formoterol [Symbicort] 160-4.5 mcg/actuation Hfa Aerosol Inhaler 2 puff INHALATION BID RF: 0 Lantus Solostar U-100 Insulin 100 unit/mL (3 mL) Insulin Pen 10 unit SUBCUT QAM RF: 0 Baqsimi 3 mg/actuation [place],Non-Aerosol 3 mg INTRANASAL RF: 0 amlodipine 10 mg Tablet 10 mg PO DAILY Qty: 1 RF: 0 Discontinued metoprolol succinate 50 mg Tablet Extended Release 24 Hr 50 mg PO DAILY RF: 0 Discharge Orders: Discharge Order (Routine); Ordered 05/10/20 Ordered By: Elie Cleveland Diet: other Activity on Discharge: As tolerated Visit Report Forms: Patient Portal Discharge page Care Plan Goals: To stay healthy and out of the hospital. Health Concerns: Aspriation Pneumonia Dysphagia Plan of Treatment: Aspriation Pneumonia - Take Augmentin for 5 more days Dysphagia - Ground / Mechanical soft diet.
[2020-05-10 10:32] VITALS: BP 115/43; PULSE 87; O2SAT 72
[2020-05-10 11:24] VITALS: BP 123/54; PULSE 78; RESP 20; TEMP 36.6; O2SAT 96
[2020-05-10 11:29] LABS: Glucose, Whole Blood 147 mg/dL (60-115)
--- NOTE | 2020-05-10 14:30 | MHC.CM.PN ---
pt is dc'd and is returning to [facility] , leaving [facility] at 4 pm. pt's was called and given this news. r.n. caring for patient aware of this dc information. cm to cont. to follow.
== END 2020-05-10 17:52 | disposition skilled nursing facility (03) | DRG 208 ==
LOC: HO.ED 12:51 → HO.ICU 14:40 → HO.ISO 05-08 06:15
PROVIDERS: Family Medicine; Physician Assistant; Registered Nurse Community Health; Admitting Provider Internal Medicine Pulmonary Disease; Emergency Provider Emergency Medicine Emergency Medical Services; Visit Provider Family Medicine
DX: U07.1 COVID-19 (principal); J96.21 Acute and chronic respiratory failure with hypoxia; I50.33 Acute on chronic diastolic (congestive) heart failure; J69.0 Pneumonitis due to inhalation of food and vomit; I13.0 Hypertensive heart and chronic kidney disease with heart failure and stage 1 through stage 4 chronic kidney disease, or unspecified chronic kidney disease; N18.4 Chronic kidney disease, stage 4 (severe); J98.11 Atelectasis; E87.0 Hyperosmolality and hypernatremia; T17.890A Other foreign object in other parts of respiratory tract causing asphyxiation, initial encounter; G47.33 Obstructive sleep apnea (adult) (pediatric); X58.XXXA Exposure to other specified factors, initial encounter; E66.01 Morbid (severe) obesity due to excess calories; Z99.89 Dependence on other enabling machines and devices; Y93.9 Activity, unspecified; E11.22 Type 2 diabetes mellitus with diabetic chronic kidney disease; Z99.81 Dependence on supplemental oxygen; I48.91 Unspecified atrial fibrillation; K21.9 Gastro-esophageal reflux disease without esophagitis; Y92.9 Unspecified place or not applicable; Y99.9 Unspecified external cause status; Z79.4 Long term (current) use of insulin; Z79.899 Other long term (current) drug therapy
CPT/HCPCS: 0241U; 36415; 36430; 36600; 71045; 80048; 80053; 82040; 82272; 82728; 82803; 82947; 83036; 83605; 83615; 83735; 83880; 84100; 84145; 84484; 85007; 85025; 85027; 85610; 86850; 86900; 86901; 86920; 87040; 92610; 93005; 94002; 94003; 94640; 94660; 94667; 94799; 96361; 96365; 96366; 96367; 96375; 97162; 99284; 99285; 99291; C1758; J0295; J1940; J1956; J2250; J2930; J3475; P9016; P9047

== ENCOUNTER 2020-05-17 11:17 | Inpatient (IN) | payer MEDICARE, MEDICAID, SELFPAY ==
[2020-05-17] VITALS (9 sets, daily range): BP systolic 100–127; BP diastolic 50–73; PULSE 85–112; RESP 18–24; TEMP 36.3–36.8; O2SAT 85–95; BMI 34.4
--- NOTE | 2020-05-17 | CT_ITS ---
EXAMINATION: CT CHEST WITHOUT CONTRAST CLINICAL INFORMATION: Hypoxia and shortness of breath. COMPARISON: Two chest radiographs performed earlier today. TECHNIQUE: Multidetector volumetric CT imaging of the chest was done. Axial MIP volume rendering provided. Sagittal and coronal reformatted images were obtained. This CT examination was performed using dose optimization techniques as appropriate, variously including the following: *Automated exposure control. *Adjustment of mA and/or kV according to patient size (this includes techniques or standardized protocols for targeted exams where dose is matched to indication/reason for exam; i.e. extremities or head). *Use of iterative reconstruction technique. DLP: 372 mGy-cm FINDINGS: LUNGS AND PLEURA: A moderate-sized right pleural effusion is present with associated near complete collapse of the right lung. Only the right upper lobe remains partially aerated. Of note, the right mainstem bronchus appears occluded. On the left, a tiny effusion is present with some mild left lower lobe atelectasis. Some atelectasis is also present in the lingula. Some peripheral rounded nodular densities are seen that have a somewhat tree-in-bud type appearance which are most likely inflammatory. MEDIASTINUM: The heart is enlarged. A tiny pericardial effusion is present. Coronary calcification is present. No mediastinal or hilar lymphadenopathy is seen. AXILLA: No lymphadenopathy. UPPER ABDOMEN: Unremarkable. OSSEOUS STRUCTURES: Marked degenerative changes present throughout the spine. CT/CT chest wo con IMPRESSION: 1. Occlusion of the right mainstem bronchus. Only a small portion of the right upper lobe is aerated. 2. Moderate right pleural effusion with small left-sided effusion. 3. Cardiomegaly and tiny pericardial effusion. This critical result was discussed with Dr. Degroot at 7:26 PM on the day of the exam and it was ascertained that the content and urgency of the report was understood at the time of direct communication.
--- NOTE | 2020-05-17 11:19 | ECG_ITS ---
Test Reason : SOB Blood Pressure : / mmHG Vent. Rate : 114 BPM Atrial Rate : 107 BPM P-R Int : 000 ms QRS Dur : 090 ms QT Int : 330 ms P-R-T Axes : 000 -22 044 degrees QTc Int : 454 ms Atrial fibrillation with rapid ventricular response Abnormal ECG When compared with ECG of 06-MAY-2020 14:28, Atrial fibrillation has replaced Sinus rhythm Vent. rate has increased BY 38 BPM Referred By: Azalea Ruelas Electronically Signed By:KENNY HAGER
--- NOTE | 2020-05-17 11:21 | XR_ITS ---
EXAMINATION: XR CHEST CLINICAL INFORMATION: Dyspnea COMPARISON: Previous chest x-ray most recent 05/06/2020 TECHNIQUE: Frontal view of the chest was obtained. FINDINGS: There is volume loss to the right hemithorax with shift of the central mediastinal structures to the right. There is almost complete opacification of the right hemithorax. This is probably due to a combination of right pleural effusion and right lung atelectasis. There is only a small aerated portion of the right upper lobe seen. The left lung is clear. There is blunting at the left lateral costophrenic angle questionable for a small left pleural effusion. There is no pneumothorax. There are degenerative changes of the spine. XR/XR chest 1V IMPRESSION: Shift of the mediastinal structures to the right and almost complete whiteout of the right hemithorax. This is likely due to a combination of right lung atelectasis and right pleural effusion. Follow-up chest x-ray following respiratory treatment to see if there is increased expansion of the right lung recommended.
--- NOTE | 2020-05-17 11:22 | ED_ITS ---
HPI - SOB/Dyspnea General Chief Complaint: Dyspnea Stated Complaint: LOW O2SAT @ SNF 82-88% ON 5L [facility] Time Seen by Provider: 05/17/20 11:19 Source: patient, EMS and old records reviewed Mode of arrival: EMS Limitations: no limitations History of Present Illness HPI Narrative: 70 yo female s/p COVID in March - has COPD on 3-4L post COVID, obesity, sleep apnea, dCHF - on augmentin as of 05/10 for aspiration pneumonia comes in with increased shortness of breath since yesterday denies CP - asking for a treatment states Mr. Varghese cannot give nebs, EMS was told at SNF she went down to 88% on 5L NC MD elicited complaint: shortness of breath Pertinent past history: COPD and congestive heart failure Onset (ago): day(s) (1) Context: recent illness Timing: constant Severity: moderate Exacerbating factors: lying flat Relieving factors: oxygen, rest and upright position Known history of: COPD and congestive heart failure Associated symptoms: denies other symptoms Treatment prior to arrival: oxygen Related Data Home Medications Medication Instructions Recorded Confirmed Spiriva with HandiHaler 1 cap INHALATION DAILY 05/06/20 05/17/20 furosemide 40 mg PO DAILY 05/06/20 05/17/20 insulin aspart U-100 [Novolog 0 unit SUBCUT TID 05/06/20 05/17/20 Flexpen U-100 Insulin] montelukast 10 mg PO BEDTIME 05/06/20 05/17/20 omeprazole 20 mg PO DAILY 05/06/20 05/17/20 acetaminophen 650 mg PO Q4H PRN 05/17/20 05/17/20 amoxicillin-pot clavulanate 1 tab PO BID 05/17/20 05/17/20 [Augmentin] cholecalciferol (vitamin D3) 50 mcg PO DAILY 05/17/20 05/17/20 [Vitamin D3] cyanocobalamin (vitamin B-12) 1,000 mcg PO DAILY 05/17/20 05/17/20 docusate sodium 100 mg PO DAILY 05/17/20 05/17/20 epoetin melvina-epbx [Retacrit] 10,000 unit SUBCUT WE@1000 05/17/20 05/17/20 fluticasone propion-salmeterol 1 inh INHALATION BID 05/17/20 05/17/20 [Advair Diskus] folic acid 1 mg PO DAILY 05/17/20 05/17/20 geriatric baikbqua-iwbs-yomw 1 tab PO DAILY 05/17/20 05/17/20 [Multivitamin w/Minerals, Iron] loratadine 10 mg PO DAILY 05/17/20 05/17/20 metoprolol succinate 75 mg PO DAILY 05/17/20 05/17/20 nystatin 1 appl TOPICAL BID 05/17/20 05/17/20 trazodone 50 mg PO BEDTIME PRN 05/17/20 05/17/20 Previous Rx's Medication Instructions Recorded amlodipine 10 mg PO DAILY #1 tab 05/10/20 Allergies Allergy/AdvReac Type Severity Reaction Status Date / Time exenatide [From Byetta] Allergy Unknown Verified 05/06/20 12:49 gabapentin Allergy Unknown Verified 05/06/20 12:49 glipizide Allergy Depression Verified 05/06/20 12:49 metformin Allergy Unknown Verified 05/06/20 12:49 simvastatin [From Zocor] Allergy Unknown Verified 05/06/20 12:49 zolpidem [From Ambien] Allergy Unknown Verified 05/06/20 12:49 Review of Systems Review of Systems: Constitutional : No Fever, No Chills ENT/Mouth : No sore throat, No Rhinorrhea, No Swallowing Difficulty Eyes: No Eye Pain, No Swelling, No Redness Cardiovascular : No Chest Pain, positive SOB, No Orthopnea, no Edema Respiratory : pos Cough, No Sputum, No Wheezing, positive dyspnea Gastrointestinal : No Nausea, No Vomiting, No Diarrhea, No abdominal Pain, No Hematochezia, No Melena Genitourinary : No Dysuria, No Urinary Frequency, No Hematuria Musculoskeletal : No joint pain, No Myalgias Skin : No Skin Lesions, No rash Neuro : No Weakness, No Numbness, No Dizziness, No Headache Psych : No Anxiety/Panic, No Depression Heme/Lymph: No Bruising, No Lymphadenopathy Endocrine : No Polyuria, No Polydipsia All other systems reviewed and are negative [facility] Past Medical History Attestation statement: The following information was validated with the patient. Medical History Acute kidney failure Anemia Atrial fibrillation Atrial fibrillation with RVR Chronic kidney disease (CKD) COPD (chronic obstructive pulmonary disease) COVID-19 Diabetes GERD (gastroesophageal reflux disease) History of COVID-19 Hyperlipidemia Hypernatremia Hypokalemia Hypotension Morbid obesity Obstructive sleep apnea Spontaneous ecchymosis Viral pneumonia Social History Social History (Updated 05/17/20 @ 11:28 by Azalea Ruelas DO) Smoking Status: Former smoker Advance Directives: Yes Advance Directives on File: Yes Advance Directives Date on File: 05/14/20 service: No Current occupational status: retired Physical Exam Vital Signs: Vital Signs: Last Vital Signs Temp 98.1 F 05/17/20 15:13 Pulse 107 H 05/17/20 15:13 Resp 23 H 05/17/20 15:13 BP 103/50 L 05/17/20 15:13 Pulse Ox 94 05/17/20 15:13 Body Mass Index 34.4 Appearance: Alert. Oriented X3. Mild acute distress. Eyes: Pupils equal, round and reactive to light. ENT: Pharynx normal. Neck: Normal inspection. Neck supple. CVS: Normal heart rate and rhythm. Pulses normal. Respiratory: Mild respiratory distress tachypnea and retractions Breath sounds diminished throughout Abdomen: Soft and nontender. obese Skin: Skin warm and dry. Normal skin color. Normal skin turgor. Extremities: No lower extremity edema. No calf ttp Neuro: Oriented X 3. No motor deficit. No sensory deficit. Course Course Course Narrative: ABGs are not terrible for the patient but will place on bipap at this time will order thoracentesis refusing bipap now 94% on 4L looks better, will repeat CXR still doing well on 4L - repeat VBG pending overall clinically improving, refuses bipap - does not need to be intubated, CO2 improved, not ICU candidate at this time MDM - SOB/Dyspnea MDM Narrative Medical decision making narrative: 70 yo female COPD on supp O2, sleep apnea, dCHF, recent ICU admission with mucous plugging in need of vent and bronchoscopy, CKF, DM HTN - coming in with aspiration pneumonia (on augmentin still) DC from our hospital 05/10 at this time labs, CXR, neb, IV steroids, IV zosyn ordered, dispo per results and findings but likely admit Lab Data Result diagrams: 05/17/20 11:50 05/17/20 11:50 Labs: Lab Results 05/17/20 05/17/20 05/17/20 Range/Units 11:42 11:49 11:49 WBC (4.8-10.8) X10*3/uL RBC (4.20-5.50) X10*6/uL Hgb (12.0-16.0) g/dl Hct (37-47) % MCV (80-98) fL MCH (27.0-33.0) pg MCHC (31.0-35.0) g/dl RDW (11.0-16.0) % Plt Count (160-400) X10*3/uL MPV (9.4-12.3) fL Immature Gran % (Auto) (0.0-0.4) % Neut % (Auto) (45-73) % Lymph % (Auto) (20-40) % [place] % (Auto) (2-11) % Eos % (Auto) (0-4) % Baso % (Auto) (0-2) % Lymph # (Auto) (1.2-4.9) X10*3/uL [place] # (Auto) (0.1-1.2) X10*3/uL Eos # (Auto) (0.0-0.4) X10*3/uL Baso # (Auto) (0.0-0.2) X10*3/uL Abs Immat Gran (auto) (0.00-0.03) X10*3/uL Absolute Neuts (auto) (2.0-8.3) X10*3/uL Absolute Nucleated RBC (0.0-0.012) X10*3/uL Nucleated RBC % (auto) (0.0-0.2) /100WBC PT 12.6 (10.8-13.0) SEC INR 1.1 (0.9-1.1) APTT 33.2 (24.1-38.0) SEC ABG pH 7.34 L (7.35-7.45) ABG pCO2 62 H* (32-45) mmHg ABG pO2 50 L* (83-108) mmHg ABG HCO3 34 H (22-26) mmol/L ABG O2 Saturation 84.0 % ABG Base Excess 7.9 VBG pH (7.32-7.43) VBG pCO2 mmHg VBG pO2 mmHg VBG HCO3 mmol/L VBG O2 Saturation % VBG Base Excess mmol/L Oxygen Given 5 L Sodium (135-145) mmol/L Potassium (3.3-5.1) mmol/l Chloride (96-108) mmol/L Carbon Dioxide (22-29) mmol/L Anion Gap (12-20) BUN (9-16) mg/dL Creatinine (0.5-1.4) mg/dL Estim Creat Clear Calc Estimated GFR Random Glucose (60-115) mg/dL Lactic Acid 0.7 (0.5-2.0) mmol/L Calcium (8.4-10.2) mg/dL Magnesium (1.6-2.6) mg/dL Total Bilirubin (0.0-1.0) mg/dL Direct Bilirubin (0.0-0.5) mg/dL AST (5-31) U/L ALT (0-31) U/L Alkaline Phosphatase (39-117) U/L Troponin I High Sens (<3.5-17.0) ng/L B-Natriuretic Peptide (<100) pg/mL Total Protein (6.5-8.0) g/dL Albumin (3.5-5.0) g/dL Lipase (8-78) U/L COVID-19 (YESSENIA) (Negative) COVID-19 Clin Com 05/17/20 05/17/20 05/17/20 Range/Units 11:49 11:49 11:50 WBC 9.5 (4.8-10.8) X10*3/uL RBC 2.69 L (4.20-5.50) X10*6/uL Hgb 8.1 L (12.0-16.0) g/dl Hct 27.9 L (37-47) % MCV 103.7 H (80-98) fL MCH 30.1 (27.0-33.0) pg MCHC 29.0 L (31.0-35.0) g/dl RDW 18.4 H (11.0-16.0) % Plt Count 158 L (160-400) X10*3/uL MPV 10.7 (9.4-12.3) fL Immature Gran % (Auto) 1.4 H (0.0-0.4) % Neut % (Auto) 83.2 H (45-73) % Lymph % (Auto) 7.5 L (20-40) % [place] % (Auto) 5.8 (2-11) % Eos % (Auto) 1.8 (0-4) % Baso % (Auto) 0.3 (0-2) % Lymph # (Auto) 0.7 L (1.2-4.9) X10*3/uL [place] # (Auto) 0.6 (0.1-1.2) X10*3/uL Eos # (Auto) 0.2 (0.0-0.4) X10*3/uL Baso # (Auto) 0.0 (0.0-0.2) X10*3/uL Abs Immat Gran (auto) 0.13 H (0.00-0.03) X10*3/uL Absolute Neuts (auto) 7.9 (2.0-8.3) X10*3/uL Absolute Nucleated RBC 0.000 (0.0-0.012) X10*3/uL Nucleated RBC % (auto) 0.0 (0.0-0.2) /100WBC PT (10.8-13.0) SEC INR (0.9-1.1) APTT (24.1-38.0) SEC ABG pH (7.35-7.45) ABG pCO2 (32-45) mmHg ABG pO2 (83-108) mmHg ABG HCO3 (22-26) mmol/L ABG O2 Saturation % ABG Base Excess VBG pH (7.32-7.43) VBG pCO2 mmHg VBG pO2 mmHg VBG HCO3 mmol/L VBG O2 Saturation % VBG Base Excess mmol/L Oxygen Given Sodium (135-145) mmol/L Potassium (3.3-5.1) mmol/l Chloride (96-108) mmol/L Carbon Dioxide (22-29) mmol/L Anion Gap (12-20) BUN (9-16) mg/dL Creatinine (0.5-1.4) mg/dL Estim Creat Clear Calc Estimated GFR Random Glucose (60-115) mg/dL Lactic Acid (0.5-2.0) mmol/L Calcium (8.4-10.2) mg/dL Magnesium (1.6-2.6) mg/dL Total Bilirubin (0.0-1.0) mg/dL Direct Bilirubin (0.0-0.5) mg/dL AST (5-31) U/L ALT (0-31) U/L Alkaline Phosphatase (39-117) U/L Troponin I High Sens 4.3 (<3.5-17.0) ng/L B-Natriuretic Peptide (<100) pg/mL Total Protein (6.5-8.0) g/dL Albumin (3.5-5.0) g/dL Lipase 20 (8-78) U/L COVID-19 (YESSENIA) (Negative) COVID-19 Clin Com 05/17/20 05/17/20 05/17/20 Range/Units 11:50 11:50 12:31 WBC (4.8-10.8) X10*3/uL RBC (4.20-5.50) X10*6/uL Hgb (12.0-16.0) g/dl Hct (37-47) % MCV (80-98) fL MCH (27.0-33.0) pg MCHC (31.0-35.0) g/dl RDW (11.0-16.0) % Plt Count (160-400) X10*3/uL MPV (9.4-12.3) fL Immature Gran % (Auto) (0.0-0.4) % Neut % (Auto) (45-73) % Lymph % (Auto) (20-40) % [place] % (Auto) (2-11) % Eos % (Auto) (0-4) % Baso % (Auto) (0-2) % Lymph # (Auto) (1.2-4.9) X10*3/uL [place] # (Auto) (0.1-1.2) X10*3/uL Eos # (Auto) (0.0-0.4) X10*3/uL Baso # (Auto) (0.0-0.2) X10*3/uL Abs Immat Gran (auto) (0.00-0.03) X10*3/uL Absolute Neuts (auto) (2.0-8.3) X10*3/uL Absolute Nucleated RBC (0.0-0.012) X10*3/uL Nucleated RBC % (auto) (0.0-0.2) /100WBC PT (10.8-13.0) SEC INR (0.9-1.1) APTT (24.1-38.0) SEC ABG pH (7.35-7.45) ABG pCO2 (32-45) mmHg ABG pO2 (83-108) mmHg ABG HCO3 (22-26) mmol/L ABG O2 Saturation % ABG Base Excess VBG pH (7.32-7.43) VBG pCO2 mmHg VBG pO2 mmHg VBG HCO3 mmol/L VBG O2 Saturation % VBG Base Excess mmol/L Oxygen Given Sodium 144 (135-145) mmol/L Potassium 4.2 (3.3-5.1) mmol/l Chloride 103 (96-108) mmol/L Carbon Dioxide 31 H (22-29) mmol/L Anion Gap 14 (12-20) BUN 50 H (9-16) mg/dL Creatinine 2.94 H (0.5-1.4) mg/dL Estim Creat Clear Calc 18.3 Estimated GFR 16 Random Glucose 201 H D (60-115) mg/dL Lactic Acid (0.5-2.0) mmol/L Calcium 8.5 (8.4-10.2) mg/dL Magnesium 1.8 (1.6-2.6) mg/dL Total Bilirubin 0.3 (0.0-1.0) mg/dL Direct Bilirubin 0.2 (0.0-0.5) mg/dL AST 6 D (5-31) U/L ALT 8 (0-31) U/L Alkaline Phosphatase 65 (39-117) U/L Troponin I High Sens (<3.5-17.0) ng/L B-Natriuretic Peptide 171 H (<100) pg/mL Total Protein 6.4 L (6.5-8.0) g/dL Albumin 3.0 L (3.5-5.0) g/dL Lipase (8-78) U/L COVID-19 (YESSENIA) Negative (Negative) COVID-19 Clin Com See Note 05/17/20 05/17/20 Range/Units 14:34 15:12 WBC (4.8-10.8) X10*3/uL RBC (4.20-5.50) X10*6/uL Hgb (12.0-16.0) g/dl Hct (37-47) % MCV (80-98) fL MCH (27.0-33.0) pg MCHC (31.0-35.0) g/dl RDW (11.0-16.0) % Plt Count (160-400) X10*3/uL MPV (9.4-12.3) fL Immature Gran % (Auto) (0.0-0.4) % Neut % (Auto) (45-73) % Lymph % (Auto) (20-40) % [place] % (Auto) (2-11) % Eos % (Auto) (0-4) % Baso % (Auto) (0-2) % Lymph # (Auto) (1.2-4.9) X10*3/uL [place] # (Auto) (0.1-1.2) X10*3/uL Eos # (Auto) (0.0-0.4) X10*3/uL Baso # (Auto) (0.0-0.2) X10*3/uL Abs Immat Gran (auto) (0.00-0.03) X10*3/uL Absolute Neuts (auto) (2.0-8.3) X10*3/uL Absolute Nucleated RBC (0.0-0.012) X10*3/uL Nucleated RBC % (auto) (0.0-0.2) /100WBC PT (10.8-13.0) SEC INR (0.9-1.1) APTT (24.1-38.0) SEC ABG pH 7.32 L (7.35-7.45) ABG pCO2 61 H* (32-45) mmHg ABG pO2 77 L (83-108) mmHg ABG HCO3 32 H (22-26) mmol/L ABG O2 Saturation 95.0 % ABG Base Excess 5.8 VBG pH 7.21 L (7.32-7.43) VBG pCO2 89 mmHg VBG pO2 35 mmHg VBG HCO3 36 mmol/L VBG O2 Saturation 54.0 % VBG Base Excess 7.0 mmol/L Oxygen Given 5 L Sodium (135-145) mmol/L Potassium (3.3-5.1) mmol/l Chloride (96-108) mmol/L Carbon Dioxide (22-29) mmol/L Anion Gap (12-20) BUN (9-16) mg/dL Creatinine (0.5-1.4) mg/dL Estim Creat Clear Calc Estimated GFR Random Glucose (60-115) mg/dL Lactic Acid (0.5-2.0) mmol/L Calcium (8.4-10.2) mg/dL Magnesium (1.6-2.6) mg/dL Total Bilirubin (0.0-1.0) mg/dL Direct Bilirubin (0.0-0.5) mg/dL AST (5-31) U/L ALT (0-31) U/L Alkaline Phosphatase (39-117) U/L Troponin I High Sens (<3.5-17.0) ng/L B-Natriuretic Peptide (<100) pg/mL Total Protein (6.5-8.0) g/dL Albumin (3.5-5.0) g/dL Lipase (8-78) U/L COVID-19 (YESSENIA) (Negative) COVID-19 Clin Com ECG Data Attestation: I personally reviewed and interpreted this ECG as follows: ECG interpretation date: 05/17/20 ECG interpretation time: 12:39 Interpretation: Rate: 114 Rhythm: afib with RVR [place]: left Normal P waves. Normal DANIS. Normal QRS complex. ST T wave : no ANKITA, normal qTC: normal prior studies: no acute ischemia The study has been interpreted contemporaneously by me. . Critical Care Time Critical Care Time Critical Care Time: Yes Total Critical Care Time: 60 Attestation: bipap, IV antibiotics, repeat assessments. I attest to this time spent taking care of the patient Discharge Plan Discharge Clinical Impression: Atelectasis of right lung COPD (chronic obstructive pulmonary disease) Qualifiers: COPD type: COPD with acute exacerbation Qualified Code(s): J44.1 - Chronic obstructive pulmonary disease with (acute) exacerbation Respiratory failure Qualifiers: Chronicity: acute on chronic Respiratory failure complication: hypoxia and hypercapnia Qualified Code(s): J96.21 - Acute and chronic respiratory failure with hypoxia Patient Disposition: Admitted As Inpatient
[2020-05-17 11:45] LABS: Pt Ventilation O2% 5 L
[2020-05-17] MEDS: Albuterol Sulfate (0.083%) 2.5 MG/3 ML VIAL.NEB 5 MG INHALE (11:45)
[2020-05-17 11:49] LABS: HCO3 ABG 34 mmol/L (22-26); pH ABG 7.34 (7.35-7.45)
[2020-05-17 11:50] LABS: Base Excess ABG 7.9
[2020-05-17 11:53] LABS: ABG PCO2 62 mmHg (32-45); PO2 ABG 50 mmHg (83-108)
[2020-05-17 11:56] LABS: MANUAL DIFF FLAG NO
[2020-05-17 12:04] LABS: Basophils Percent Auto 0.3 % (0-2); Eosinophils Absolute Auto 0.2 X10*3/uL (0.0-0.4); Eosinophils Percent Auto 1.8 % (0-4); Hematocrit 27.9 % (37-47); Hemoglobin 8.1 g/dl (12.0-16.0); Imm Gran Abs Auto 0.13 X10*3/uL (0.00-0.03); Imm Gran Pct Auto 1.4 % (0.0-0.4); Lymphocytes Absolute Auto 0.7 X10*3/uL (1.2-4.9); Lymphocytes Percent Auto 7.5 % (20-40); Mean Corpuscular Hemoglobin 30.1 pg (27.0-33.0); Mean Corpuscular Volume 103.7 fL (80-98); Mean Platelet Volume 10.7 fL (9.4-12.3); Monocytes Absolute Auto 0.6 X10*3/uL (0.1-1.2); Monocytes Percent Auto 5.8 % (2-11); Neutrophils Absolute Auto 7.9 X10*3/uL (2.0-8.3); Neutrophils Percent Auto 83.2 % (45-73); Platelet Count 158 X10*3/uL (160-400); Red Blood Count 2.69 X10*6/uL (4.20-5.50); Red Cell Distribution Width 18.4 % (11.0-16.0); White Blood Count 9.5 X10*3/uL (4.8-10.8)
[2020-05-17 12:09] LABS: INTERNATIONAL NORM RATIO 1.1 (0.9-1.1); Prothrombin Time 12.6 SEC (10.8-13.0)
[2020-05-17] MEDS: methylPREDNISolone Sod Succ/PF 125 MG/2 ML VIAL 60 MG IVPUSH ×2 (12:09→23:13)
[2020-05-17] MEDS: Piperacillin Sodium/Tazobactam 3.375 GM in 0.9 % Sodium Chloride 50 ML IV (12:09)
[2020-05-17 12:11] LABS: Partial Thromboplastin Time 33.2 SEC (24.1-38.0)
[2020-05-17 12:25] LABS: Lactic Acid 0.7 mmol/L (0.5-2.0)
[2020-05-17 12:29] LABS: Lipase 20 U/L (8-78)
[2020-05-17 12:31] LABS: Alanine Aminotransferase 8 U/L (0-31); Alkaline Phosphatase 65 U/L (39-117); Anion Gap 14 (12-20); Aspartate Amino Transferase 6 U/L (5-31); Bilirubin Direct 0.2 mg/dL (0.0-0.5); Bilirubin Total 0.3 mg/dL (0.0-1.0); Blood Urea Nitrogen 50 mg/dL (9-16); Calcium 8.5 mg/dL (8.4-10.2); Carbon Dioxide 31 mmol/L (22-29); Chloride 103 mmol/L (96-108); Creatinine Clr Calc Pharmacy 18.3; Estimated Glomerular Filt Rate 16; Glucose Random 201 mg/dL (60-115); Magnesium 1.8 mg/dL (1.6-2.6); Potassium 4.2 mmol/l (3.3-5.1); Sodium 144 mmol/L (135-145); Total Protein 6.4 g/dL (6.5-8.0)
[2020-05-17 12:33] LABS: B Type Natriuretic Peptide 171 pg/mL (<100)
[2020-05-17 12:33] LABS: Troponin-I High Sensitivity 4.3 ng/L (<3.5-17.0)
[2020-05-17 12:58] LABS: COVID-19 Test Negative (Negative)
--- NOTE | 2020-05-17 13:24 | PC.NURSE ---
PT IS REFUSING TO WEAR HER BIPAP SHE HAS A NC @4L AND O2 Sat IS 93-94%
--- NOTE | 2020-05-17 13:33 | P.HPCC_ITS ---
History of Present Illness Date of Service: 05/17/20 Chief Complaint: Altered mental status 70-year-old female discharged several days ago who was treated for COVID-19 bilateral pneumonitis and ARDS in March and then presented with dyspnea and acute hypoxic respiratory failure with complete right lung atelectasis with clearing of mucus plugs by bedside bronchoscopy presumably on a aspiration basis as she does have underlying obesity and obstructive sleep apnea and COPD and recurrent diastolic CHF and minute it appears she has got persistent atrial fibrillation with varying heart rate response [facility] Past Medical History Medical History (Updated 05/21/20 @ 09:32 by Dominic Love MD) Acute kidney failure Anemia Atrial fibrillation Atrial fibrillation with RVR Chronic kidney disease (CKD) COPD (chronic obstructive pulmonary disease) COVID-19 Diabetes GERD (gastroesophageal reflux disease) History of COVID-19 Hyperlipidemia Hypernatremia Hypokalemia Hypotension Morbid obesity Obstructive sleep apnea Pleural effusion Spontaneous ecchymosis Viral pneumonia Social History Social History Household Members: Family Housing: House Do you presently have visiting nurse or other home services: No Advance Directives Date on File: 05/14/20 service: No Current occupational status: retired Meds Allergies Allergy/AdvReac Type Severity Reaction Status Date / Time exenatide [From Byetta] Allergy Unknown Verified 05/06/20 12:49 gabapentin Allergy Unknown Verified 05/06/20 12:49 glipizide Allergy Depression Verified 05/06/20 12:49 metformin Allergy Unknown Verified 05/06/20 12:49 simvastatin [From Zocor] Allergy Unknown Verified 05/06/20 12:49 zolpidem [From Ambien] Allergy Unknown Verified 05/06/20 12:49 Home Medications Medication Instructions Recorded Confirmed Type furosemide 40 mg tablet 40 mg PO DAILY 05/06/20 05/17/20 History insulin aspart U-100 100 unit/mL 0 unit SUBCUT TID 05/06/20 05/17/20 History (3 mL) subcutaneous pen (Novolog Flexpen U-100 Insulin aspart) montelukast 10 mg tablet 10 mg PO BEDTIME 05/06/20 05/17/20 History omeprazole 20 mg capsule,delayed 20 mg PO DAILY 05/06/20 05/17/20 History release tiotropium bromide 18 mcg capsule 1 cap INHALATION DAILY 05/06/20 05/17/20 History with inhalation device (Spiriva with HandiHaler) acetaminophen 325 mg tablet 650 mg PO Q4H PRN 05/17/20 05/17/20 History cholecalciferol (vitamin D3) 25 50 mcg PO DAILY 05/17/20 05/17/20 History mcg (1,000 unit) tablet (Vitamin D3) cyanocobalamin (vitamin B-12) 1,000 mcg PO DAILY 05/17/20 05/17/20 History 1,000 mcg tablet docusate sodium 100 mg capsule 100 mg PO DAILY 05/17/20 05/17/20 History epoetin melvina-epbx 10,000 unit/mL 10,000 unit SUBCUT WE@1000 05/17/20 05/17/20 History injection solution (Retacrit) fluticasone 250 mcg-salmeterol 50 1 inh INHALATION BID 05/17/20 05/17/20 History mcg/dose blistr powdr for inhalation (Advair Diskus) folic acid 1 mg tablet 1 mg PO DAILY 05/17/20 05/17/20 History geriatric [id number] 1 tab PO DAILY 05/17/20 05/17/20 History loratadine 10 mg tablet 10 mg PO DAILY 05/17/20 05/17/20 History metoprolol succinate 25 mg 75 mg PO DAILY 05/17/20 05/17/20 History tablet,extended release 24 hr nystatin 100,000 unit/gram topical 1 appl TOPICAL BID 05/17/20 05/17/20 History cream trazodone 50 mg tablet 50 mg PO BEDTIME PRN 05/17/20 05/17/20 History Physical Exam Vital Signs: Vital Signs: Last Vital Signs Temp 97.9 F 05/17/20 12:08 Pulse 100 05/17/20 12:08 Resp 19 05/17/20 12:11 BP 107/62 05/17/20 12:08 Pulse Ox 95 05/17/20 12:08 Body Mass Index 34.4 Awake alert with compensated hypoxia and just a moderate increase in respiratory effort but not in any distress Bedside echo demonstrating normal LV and RV function and no primary valve or pericardial disease Absent breath sounds on the right Cardiac exam good carotid upstrokes and no neck vein distension Abdomen benign no organomegaly Skin intact no acrocyanosis Results Labs CBC and Chem 7: 05/21/20 06:01 05/21/20 06:01 Labs: Laboratory Results - last 24 hr 05/17/20 05/17/20 05/17/20 11:42 11:49 11:49 MCV MCH MCHC RDW Plt Count MPV Immature Gran % (Auto) Neut % (Auto) Lymph % (Auto) [place] % (Auto) Eos % (Auto) Baso % (Auto) Lymph # (Auto) [place] # (Auto) Eos # (Auto) Baso # (Auto) Abs Immat Gran (auto) Absolute Neuts (auto) Absolute Nucleated RBC Nucleated RBC % (auto) PT 12.6 INR 1.1 APTT 33.2 ABG pH 7.34 L ABG pCO2 62 H* ABG pO2 50 L* ABG HCO3 34 H ABG O2 Saturation 84.0 ABG Base Excess 7.9 Oxygen Given 5 L Anion Gap Estim Creat Clear Calc Estimated GFR Random Glucose Lactic Acid 0.7 Calcium Magnesium Total Bilirubin Direct Bilirubin AST ALT Alkaline Phosphatase Troponin I High Sens B-Natriuretic Peptide Total Protein Albumin Lipase COVID-19 (YESSENIA) [employer] 05/17/20 05/17/20 05/17/20 11:49 11:49 11:50 MCV 103.7 H MCH 30.1 MCHC 29.0 L RDW 18.4 H Plt Count 158 L MPV 10.7 Immature Gran % (Auto) 1.4 H Neut % (Auto) 83.2 H Lymph % (Auto) 7.5 L [place] % (Auto) 5.8 Eos % (Auto) 1.8 Baso % (Auto) 0.3 Lymph # (Auto) 0.7 L [place] # (Auto) 0.6 Eos # (Auto) 0.2 Baso # (Auto) 0.0 Abs Immat Gran (auto) 0.13 H Absolute Neuts (auto) 7.9 Absolute Nucleated RBC 0.000 Nucleated RBC % (auto) 0.0 PT INR APTT ABG pH ABG pCO2 ABG pO2 ABG HCO3 ABG O2 Saturation ABG Base Excess Oxygen Given Anion Gap Estim Creat Clear Calc Estimated GFR Random Glucose Lactic Acid Calcium Magnesium Total Bilirubin Direct Bilirubin AST ALT Alkaline Phosphatase Troponin I High Sens 4.3 B-Natriuretic Peptide Total Protein Albumin Lipase 20 COVID-19 (YESSENIA) [employer] 05/17/20 05/17/20 05/17/20 11:50 11:50 12:31 MCV MCH MCHC RDW Plt Count MPV Immature Gran % (Auto) Neut % (Auto) Lymph % (Auto) [place] % (Auto) Eos % (Auto) Baso % (Auto) Lymph # (Auto) [place] # (Auto) Eos # (Auto) Baso # (Auto) Abs Immat Gran (auto) Absolute Neuts (auto) Absolute Nucleated RBC Nucleated RBC % (auto) PT INR APTT ABG pH ABG pCO2 ABG pO2 ABG HCO3 ABG O2 Saturation ABG Base Excess Oxygen Given Anion Gap 14 Estim Creat Clear Calc 18.3 Estimated GFR 16 Random Glucose 201 H D Lactic Acid Calcium 8.5 Magnesium 1.8 Total Bilirubin 0.3 Direct Bilirubin 0.2 AST 6 D ALT 8 Alkaline Phosphatase 65 Troponin I High Sens B-Natriuretic Peptide 171 H Total Protein 6.4 L Albumin 3.0 L Lipase COVID-19 (YESSENIA) Negative COVID-19 Clin Com See Note Imaging Radiologist's Impressions: Impressions Chest X-Ray 05/17/20 11:21 IMPRESSION: Shift of the mediastinal structures to the right and almost complete whiteout of the right hemithorax. This is likely due to a combination of right lung atelectasis and right pleural effusion. Follow-up chest x-ray following respiratory treatment to see if there is increased expansion of the right lung recommended. Assessment and Plan (1) Pleural effusion: Problem details: Transudative. The lung did not want to expand ?trapped. But clinically doing well Status: Acute (2) Diabetes: Status: Acute (3) Respiratory failure: Qualifiers: Chronicity: acute on chronic Respiratory failure complication: hypoxia and hypercapnia Qualified Code(s): J96.21 - Acute and chronic respiratory fa ilure with hypoxia; J96.22 - Acute and chronic respiratory failure with hypercapnia Status: Acute (4) Hypernatremia: Status: Acute (5) Aspiration pneumonia: Status: Acute (6) Atrial fibrillation with RVR: Problem details: not on AC due to hematoma march 2020 Status: Acute (7) Obstructive sleep apnea: Status: Acute (8) Morbid obesity: Status: Acute (9) Chronic kidney disease (CKD): Status: Acute (10) COPD (chronic obstructive pulmonary disease): Qualifiers: COPD type: COPD with acute exacerbation Qualified Code(s): J44.1 - C hronic obstructive pulmonary disease with (acute) exacerbation Status: Acute (11) Atelectasis of right lung: Problem details: Status post bronchoscopy with therapeutic cleaning Status: Acute All told the patient at this point does not seem to demonstrate a particular need for the the ICU in intermediate care should suffice clearly agree for what appears to be right mainstem bronchus obstruction likely due to inspissated secretions related to previous COVID-19 pneumonitis and of course possible secondary bacterial infection which would be nosocomial in origin I agree with antibiotic coverage as above and the need for bronchoscopy with lavage and cleaning and will follow if necessary (12) Chronic congestive heart failure: Status: Acute (13) Pulmonary aspiration: Status: Acute (14) Acute on chronic respiratory failure with hypoxia and hypercapnia: Status: Acute (15) COVID-19: Status: Acute (16) Acute respiratory distress syndrome (ARDS): Status: Acute
--- NOTE | 2020-05-17 13:58 | XR_ITS ---
EXAMINATION: XR CHEST CLINICAL INFORMATION: Evaluate for improved aeration COMPARISON: Previous chest x-ray from earlier the same day TECHNIQUE: Frontal view of the chest was obtained. FINDINGS: There is still volume loss of the right hemithorax and shift of the central mediastinal structures to the right. There is some improved aeration of the right lung with increased aerated right upper lobe. There is a residual atelectasis/consolidation at the right lung base and probable right effusion. The cardiac and mediastinal contours are stable. The left lung is clear. There may be a small left pleural effusion. There are degenerative changes of the spine and shoulder joints. XR/XR chest 1V IMPRESSION: Minimal improvement in aeration of the right lung compared to chest x-ray from earlier today. Persistent volume loss to the right hemithorax and atelectasis/consolidation at the right lung base and probable right pleural effusion.
[2020-05-17 14:46] LABS: HCO3 VBG 36 mmol/L; PCO2 VBG 89 mmHg; PO2 VBG 35 mmHg; pH VBG 7.21 (7.32-7.43)
[2020-05-17] MEDS: vancomycin HCL 1,000 MG in 0.9 % Sodium Chloride 250 ML 270 MG IV (15:00)
[2020-05-17 15:22] LABS: Pt Ventilation O2% 5 L
[2020-05-17 15:30] LABS: Base Excess ABG 5.8; HCO3 ABG 32 mmol/L (22-26); PO2 ABG 77 mmHg (83-108); pH ABG 7.32 (7.35-7.45)
[2020-05-17 15:31] LABS: ABG PCO2 61 mmHg (32-45)
--- NOTE | 2020-05-17 17:39 | P.HPHOSP_ITS ---
History of Present Illness Date of Service: 05/17/20 Chief Complaint: Shortness of breath 70-year-old female with 2 recent admissions, 1 at the end of March 2020 for COVID pneumonia. Patient was then readmitted early April with acute hypoxic respiratory failure secondary to mucus plug requiring intubation. Patient was then discharged to custodial facility. Patient reports that she was doing well at custodial facility until day prior to presentation. At which point patient started to feel short of breath, on day of presentation patient asked staff to examine her. She was found to have significant hypoxia. In ED ABG significant for hypercapnia with a pCO2 of 62, pH of 7.32, hypoxia of 86 on 5 L. patient had a chest x-ray which showed right-sided opacities consistent with atelectasis and effusion. She was given steroids, antibiotics, nebulizers. She was feeling much better. She was evaluated by intensive care unit and felt to be medically stable for intermediate care. Review of Systems Review of Systems: Constitutional: Denies fever, denies Chills Eyes: denies blurry vision ENT: denies sore throat CVS: denies chest pain Respiratory: dyspnea GI: no abdominal pain : denies dysuria MSK: denies neck pain Skin: denies rash Neuro: denies specific motor weakness Psych: denies suicidal ideation Endocrine: denies heat/cold intoleratnce Hematologic: denies easy bleeding All[facility]: [facility] hives [facility] Medical History Acute kidney failure Anemia Atrial fibrillation Atrial fibrillation with RVR Chronic kidney disease (CKD) COPD (chronic obstructive pulmonary disease) COVID-19 Diabetes GERD (gastroesophageal reflux disease) History of COVID-19 Hyperlipidemia Hypernatremia Hypokalemia Hypotension Morbid obesity Obstructive sleep apnea Spontaneous ecchymosis Viral pneumonia Family history: reviewed and not pertinent Social History Smoking Status: Former smoker Advance Directives: Yes Advance Directives on File: Yes Advance Directives Date on File: 05/14/20 service: No Current occupational status: retired Meds Allergies Allergy/AdvReac Type Severity Reaction Status Date / Time exenatide [From Byetta] Allergy Unknown Verified 05/06/20 12:49 gabapentin Allergy Unknown Verified 05/06/20 12:49 glipizide Allergy Depression Verified 05/06/20 12:49 metformin Allergy Unknown Verified 05/06/20 12:49 simvastatin [From Zocor] Allergy Unknown Verified 05/06/20 12:49 zolpidem [From Ambien] Allergy Unknown Verified 05/06/20 12:49 Home Medications Medication Instructions Recorded Confirmed Type Spiriva with HandiHaler 1 cap INHALATION DAILY 05/06/20 05/17/20 History furosemide 40 mg PO DAILY 05/06/20 05/17/20 History insulin aspart U-100 [Novolog 0 unit SUBCUT TID 05/06/20 05/17/20 History Flexpen U-100 Insulin] montelukast 10 mg PO BEDTIME 05/06/20 05/17/20 History omeprazole 20 mg PO DAILY 05/06/20 05/17/20 History acetaminophen 650 mg PO Q4H PRN 05/17/20 05/17/20 History amoxicillin-pot clavulanate 1 tab PO BID 05/17/20 05/17/20 History [Augmentin] cholecalciferol (vitamin D3) 50 mcg PO DAILY 05/17/20 05/17/20 History [Vitamin D3] cyanocobalamin (vitamin B-12) 1,000 mcg PO DAILY 05/17/20 05/17/20 History docusate sodium 100 mg PO DAILY 05/17/20 05/17/20 History epoetin melvina-epbx [Retacrit] 10,000 unit SUBCUT WE@1000 05/17/20 05/17/20 History fluticasone propion-salmeterol 1 inh INHALATION BID 05/17/20 05/17/20 History [Advair Diskus] folic acid 1 mg PO DAILY 05/17/20 05/17/20 History geriatric jpjgysjz-gppq-ajhq 1 tab PO DAILY 05/17/20 05/17/20 History [Multivitamin w/Minerals, Iron] loratadine 10 mg PO DAILY 05/17/20 05/17/20 History metoprolol succinate 75 mg PO DAILY 05/17/20 05/17/20 History nystatin 1 appl TOPICAL BID 05/17/20 05/17/20 History trazodone 50 mg PO BEDTIME PRN 05/17/20 05/17/20 History Physical Exam Vital Signs and Narrative: Vital Signs: Last Vital Signs Temp 98.1 F 05/17/20 15:13 Pulse 107 H 05/17/20 15:13 Resp 23 H 05/17/20 15:13 BP 103/50 L 05/17/20 15:13 Pulse Ox 94 05/17/20 15:13 Body Mass Index 34.4 General: no acute distress HEENT: atraumatic Neck: normal to visual inspection CVS: S1, S2, rapid irrelgular Resp: decreased on right Chest: non tender GI: soft, non tender, non distended : no CVA tenderness Skin: no rashes Extremities: no edema Neuro: Oriented X3, grossly intact Psych: cooperative, Results Labs CBC and Chem 7: 05/17/20 11:50 05/17/20 11:50 Labs: Laboratory Results - last 24 hr 05/17/20 05/17/20 05/17/20 11:42 11:49 11:49 MCV MCH MCHC RDW Plt Count MPV Immature Gran % (Auto) Neut % (Auto) Lymph % (Auto) [place] % (Auto) Eos % (Auto) Baso % (Auto) Lymph # (Auto) [place] # (Auto) Eos # (Auto) Baso # (Auto) Abs Immat Gran (auto) Absolute Neuts (auto) Absolute Nucleated RBC Nucleated RBC % (auto) PT 12.6 INR 1.1 APTT 33.2 ABG pH 7.34 L ABG pCO2 62 H* ABG pO2 50 L* ABG HCO3 34 H ABG O2 Saturation 84.0 ABG Base Excess 7.9 VBG pH VBG pCO2 VBG pO2 VBG HCO3 VBG O2 Saturation VBG Base Excess Oxygen Given 5 L Anion Gap Estim Creat Clear Calc Estimated GFR Random Glucose Lactic Acid 0.7 Calcium Magnesium Total Bilirubin Direct Bilirubin AST ALT Alkaline Phosphatase Troponin I High Sens B-Natriuretic Peptide Total Protein Albumin Lipase COVID-19 (YESSENIA) COVID-19 Clin Com 05/17/20 05/17/20 05/17/20 11:49 11:49 11:50 MCV 103.7 H MCH 30.1 MCHC 29.0 L RDW 18.4 H Plt Count 158 L MPV 10.7 Immature Gran % (Auto) 1.4 H Neut % (Auto) 83.2 H Lymph % (Auto) 7.5 L [place] % (Auto) 5.8 Eos % (Auto) 1.8 Baso % (Auto) 0.3 Lymph # (Auto) 0.7 L [place] # (Auto) 0.6 Eos # (Auto) 0.2 Baso # (Auto) 0.0 Abs Immat Gran (auto) 0.13 H Absolute Neuts (auto) 7.9 Absolute Nucleated RBC 0.000 Nucleated RBC % (auto) 0.0 PT INR APTT ABG pH ABG pCO2 ABG pO2 ABG HCO3 ABG O2 Saturation ABG Base Excess VBG pH VBG pCO2 VBG pO2 VBG HCO3 VBG O2 Saturation VBG Base Excess Oxygen Given Anion Gap Estim Creat Clear Calc Estimated GFR Random Glucose Lactic Acid Calcium Magnesium Total Bilirubin Direct Bilirubin AST ALT Alkaline Phosphatase Troponin I High Sens 4.3 B-Natriuretic Peptide Total Protein Albumin Lipase 20 COVID-19 (YESSENIA) [employer] 05/17/20 05/17/20 05/17/20 11:50 11:50 12:31 MCV MCH MCHC RDW Plt Count MPV Immature Gran % (Auto) Neut % (Auto) Lymph % (Auto) [place] % (Auto) Eos % (Auto) Baso % (Auto) Lymph # (Auto) [place] # (Auto) Eos # (Auto) Baso # (Auto) Abs Immat Gran (auto) Absolute Neuts (auto) Absolute Nucleated RBC Nucleated RBC % (auto) PT INR APTT ABG pH ABG pCO2 ABG pO2 ABG HCO3 ABG O2 Saturation ABG Base Excess VBG pH VBG pCO2 VBG pO2 VBG HCO3 VBG O2 Saturation VBG Base Excess Oxygen Given Anion Gap 14 Estim Creat Clear Calc 18.3 Estimated GFR 16 Random Glucose 201 H D Lactic Acid Calcium 8.5 Magnesium 1.8 Total Bilirubin 0.3 Direct Bilirubin 0.2 AST 6 D ALT 8 Alkaline Phosphatase 65 Troponin I High Sens B-Natriuretic Peptide 171 H Total Protein 6.4 L Albumin 3.0 L Lipase COVID-19 (YESSENIA) Negative [employer] See Note 05/17/20 05/17/20 14:34 15:12 MCV MCH MCHC RDW Plt Count MPV Immature Gran % (Auto) Neut % (Auto) Lymph % (Auto) [place] % (Auto) Eos % (Auto) Baso % (Auto) Lymph # (Auto) [place] # (Auto) Eos # (Auto) Baso # (Auto) Abs Immat Gran (auto) Absolute Neuts (auto) Absolute Nucleated RBC Nucleated RBC % (auto) PT INR APTT ABG pH 7.32 L ABG pCO2 61 H* ABG pO2 77 L ABG HCO3 32 H ABG O2 Saturation 95.0 ABG Base Excess 5.8 VBG pH 7.21 L VBG pCO2 89 VBG pO2 35 VBG HCO3 36 VBG O2 Saturation 54.0 VBG Base Excess 7.0 Oxygen Given 5 L Anion Gap Estim Creat Clear Calc Estimated GFR Random Glucose Lactic Acid Calcium Magnesium Total Bilirubin Direct Bilirubin AST ALT Alkaline Phosphatase Troponin I High Sens B-Natriuretic Peptide Total Protein Albumin Lipase COVID-19 (YESSENIA) COVID-19 Clin Com Imaging Radiologist's Impressions: Impressions Chest X-Ray 05/17/20 11:21 IMPRESSION: Shift of the mediastinal structures to the right and almost complete whiteout of the right hemithorax. This is likely due to a combination of right lung atelectasis and right pleural effusion. Follow-up chest x-ray following respiratory treatment to see if there is increased expansion of the right lung recommended. Chest X-Ray 05/17/20 13:58 IMPRESSION: Minimal improvement in aeration of the right lung compared to chest x-ray from earlier today. Persistent volume loss to the right hemithorax and atelectasis/consolidation at the right lung base and probable right pleural effusion. Assessment and Plan (1) Acute on chronic respiratory failure with hypoxia and hypercapnia: Status: Acute (2) Chronic kidney disease (CKD): Status: Acute (3) COPD (chronic obstructive pulmonary disease): Qualifiers: COPD type: COPD with acute exacerbation Qualified Code(s): J44.1 - Chronic obstructive pulmonary disease with (acute) exacerbation Status: Acute (4) Atelectasis of right lung: Status: Acute (5) Aspiration pneumonia: Status: Acute (6) Atrial fibrillation with RVR: Status: Acute (7) Obstructive sleep apnea: Status: Acute 70F presented with sob acute on chronic hypoxic and hypercapneic respiratory failure due to copd exacerbation, mucus plugging and possible bacterial pneumonia steroids, bronchodilators, mucomyst nebs, broad spectrum abx (check nasal mrsa), check CT chest, pulm consult, chest PT afib with rvr metoprolol not on anticoagulation due to development of rectus sheath and left pelvic si dewall hematoma with drop in hgb during hospitalization in 2019 at [facility] chronic diastolic chf po lasix CKD IV stable, monitor DM insulin
--- NOTE | 2020-05-17 19:27 | P.EN_ITS ---
Event Note Date of Service: 05/17/20 Event Note: received a call from [facility] that Right main stem bron chus is occluded and pt will most likely need bronchoscopy
--- NOTE | 2020-05-17 19:27 | PM.EVENT ---
Event Note Date of Service: 05/17/20 Event Note: received a call from [facility] that Right main stem bronchus is occluded and pt will most likely need bronchoscopy
[2020-05-17 22:48] LABS: Glucose, Whole Blood 158 mg/dL (60-115)
[2020-05-17] MEDS: Piperacillin Sodium/Tazobactam 2.25 GM in 0.9 % Sodium Chloride 50 ML IV (23:14)
[2020-05-17] MEDS: Montelukast Sodium 10 MG TABLET PO (23:14)
[2020-05-17] MEDS: Insulin Lispro 100 UNIT/ML 3 ML VIAL SUBCUT (23:25)
[2020-05-17] MEDS: Acetylcysteine 10 % 400 MG/4 ML VIAL 200 MG INHALE (23:54)
[2020-05-17] MEDS: Albuterol/Iprat 2.5/0.5MG 3 ML AMPUL.NEB INHALE (23:54)
[2020-05-18] VITALS (16 sets, daily range): BP systolic 105–146; BP diastolic 45–85; PULSE 83–93; RESP 17–26; TEMP 36.2–36.8; O2SAT 92–100; BMI 34.4
[2020-05-18] MEDS: 0.9 % Sodium Chloride Flush 3 ML SYRINGE IVFLUSH ×4 (01:19→20:28)
[2020-05-18 06:23] LABS: Basophils Percent Auto 0.2 % (0-2); Hematocrit 24.9 % (37-47); Hemoglobin 7.6 g/dl (12.0-16.0); Imm Gran Abs Auto 0.12 X10*3/uL (0.00-0.03); Imm Gran Pct Auto 1.9 % (0.0-0.4); Lymphocytes Absolute Auto 0.4 X10*3/uL (1.2-4.9); Lymphocytes Percent Auto 5.8 % (20-40); MANUAL DIFF FLAG SCAN; Mean Corpuscular HGB Conc 30.5 g/dl (31.0-35.0); Mean Corpuscular Hemoglobin 30.4 pg (27.0-33.0); Mean Corpuscular Volume 99.6 fL (80-98); Mean Platelet Volume 10.5 fL (9.4-12.3); Monocytes Absolute Auto 0.1 X10*3/uL (0.1-1.2); Monocytes Percent Auto 1.1 % (2-11); Neutrophils Absolute Auto 5.8 X10*3/uL (2.0-8.3); Platelet Count 197 X10*3/uL (160-400); Red Cell Distribution Width 17.8 % (11.0-16.0); SCAN SMEAR FLAG 1; White Blood Count 6.3 X10*3/uL (4.8-10.8)
[2020-05-18] MEDS: Piperacillin Sodium/Tazobactam 2.25 GM in 0.9 % Sodium Chloride 50 ML IV ×3 (06:25→22:35)
[2020-05-18 06:48] LABS: Anion Gap 17 (12-20); Blood Urea Nitrogen 55 mg/dL (9-16); Calcium 8.2 mg/dL (8.4-10.2); Carbon Dioxide 27 mmol/L (22-29); Chloride 104 mmol/L (96-108); Creatinine Clr Calc Pharmacy 18.9; Estimated Glomerular Filt Rate 16; Glucose Random 170 mg/dL (60-115); Potassium 4.9 mmol/l (3.3-5.1); Sodium 143 mmol/L (135-145)
[2020-05-18 07:23] LABS: SLIDE REVIEW VERIFIED
[2020-05-18] MEDS: Albuterol/Iprat 2.5/0.5MG 3 ML AMPUL.NEB INHALE ×3 (08:00→21:16)
[2020-05-18] MEDS: Acetylcysteine 10 % 400 MG/4 ML VIAL 200 MG INHALE ×2 (08:00→21:12)
[2020-05-18] MEDS: Fluticasone/Vilanterol 100/25 BLST.W.DEV 1 PUFF INHALE (08:01)
[2020-05-18 08:06] LABS: Glucose, Whole Blood 166 mg/dL (60-115)
[2020-05-18] MEDS: Omeprazole 20 MG CAPSULE.DR PO (08:48)
[2020-05-18] MEDS: amLODIPine Besylate 10 MG TABLET PO (08:48)
[2020-05-18] MEDS: methylPREDNISolone Sod Succ/PF 125 MG/2 ML VIAL 60 MG IVPUSH ×2 (08:49→20:28)
[2020-05-18] MEDS: Furosemide 40 MG TABLET PO (08:49)
[2020-05-18] MEDS: Loratadine 10 MG TABLET PO (08:49)
[2020-05-18] MEDS: Metoprolol Succinate ER 25 MG TAB.ER.24H 75 MG PO (08:49)
--- NOTE | 2020-05-18 11:46 | HO.PM.IMPN ---
Subjective Subjective Date of Service: 05/18/20 Interval History: sob stable Cardiovascular Cardiovascular: Reports no additional cardiovascular complaints Gastrointestinal Gastrointestinal: Reports no additional gastrointestinal complaints Physical Exam Vital Signs: Vital Signs: Last Vital Signs Temp 97.9 F 05/18/20 11:25 Pulse 91 05/18/20 11:25 Resp 26 H 05/18/20 11:25 BP 138/60 05/18/20 11:25 Pulse Ox 94 05/18/20 11:25 Body Mass Index 34.4 General: AO X 3, no acute distress Resp: diminished CVS: S1,S2,RRR GI: soft, non tender, non distended Neuro: motor grossly intact Psych: appropriate affect Objective Data Current Medications Generic Name Dose Route Start Last Admin Trade Name Freq PRN Reason Stop Dose Admin Acetaminophen 650 mg 05/17/20 22:06 Acetaminophen 325 Mg Tablet PO Q4H PRN GENERAL DISCOMFORT Acetylcysteine 200 mg 05/17/20 22:06 05/18/20 08:00 Acetylcysteine 10 % 400 Mg/4 Ml Vial INHALE 200 mg Q6H JASMINE Administration Albuterol/Ipratropium 3 ml 05/18/20 12:00 05/18/20 11:10 Albuterol/Iprat 2.5/0.5mg 3 Ml Ampul.Neb INHALE Not Given RQ6H COUNTS INCLUDE 234 BEDS AT THE [facility] Amlodipine Besylate 10 mg 05/18/20 09:00 05/18/20 08:48 Amlodipine Besylate 10 Mg Tablet PO 10 mg DAILY JASMINE Administration Protocol Cyanocobalamin 1,000 mcg 05/18/20 09:00 05/18/20 08:50 Cyanocobalamin (Vitamin B-12) 1,000 Mcg Tablet PO Not Given DAILY COUNTS INCLUDE 234 BEDS AT THE [facility] Docusate Sodium 100 mg 05/18/20 09:00 05/18/20 08:50 Docusate Sodium 100 Mg Capsule PO Not Given DAILY COUNTS INCLUDE 234 BEDS AT THE [facility] Fluticasone/Vilanterol 1 puff 05/18/20 09:00 Fluticasone/Vilanterol 100/25 Blst.W.Dev INHALE RDAILY COUNTS INCLUDE 234 BEDS AT THE [facility] Folic Acid 1 mg 05/18/20 09:00 05/18/20 08:50 Folic Acid 1 Mg Tablet PO Not Given DAILY COUNTS INCLUDE 234 BEDS AT THE [facility] Furosemide 40 mg 05/18/20 09:00 05/18/20 08:49 Furosemide 40 Mg Tablet PO 40 mg DAILY JASMINE Administration Protocol Vancomycin HCl 1,000 mg/ 270 mls @ 270 mls/hr 05/19/20 15:00 Sodium Chloride IV Q48H COUNTS INCLUDE 234 BEDS AT THE [facility] Piperacillin Sod/Tazobactam 50 mls @ 100 mls/hr 05/17/20 23:00 05/18/20 07:19 Sod 2.25 gm/ Sodium Chloride IV Infused Q8H COUNTS INCLUDE 234 BEDS AT THE [facility] Infusion Insulin Human Lispro 0 unit 05/17/20 22:06 05/18/20 11:24 Insulin Lispro 100 Unit/Ml 3 Ml Vial SUBCUT Not Given QIDACHS COUNTS INCLUDE 234 BEDS AT THE [facility] Protocol Loratadine 10 mg 05/18/20 09:00 05/18/20 08:49 Loratadine 10 Mg Tablet PO 10 mg DAILY COUNTS INCLUDE 234 BEDS AT THE [facility] Administration Methylprednisolone Sodium Succinate 60 mg 05/17/20 22:06 05/18/20 08:49 Methylprednisolone Sod Succ/Pf 125 Mg/2 Ml Vial IVPUSH 60 mg BID JASMINE Administration Metoprolol Succinate 75 mg 05/18/20 09:00 05/18/20 08:49 Metoprolol Succinate Er 25 Mg Tab.Er.24h PO 75 mg DAILY COUNTS INCLUDE 234 BEDS AT THE [facility] Administration Protocol Montelukast Sodium 10 mg 05/17/20 22:06 05/17/20 23:14 Montelukast Sodium 10 Mg Tablet PO 10 mg BEDTIME JASMINE Administration Omeprazole 20 mg 05/18/20 09:00 05/18/20 08:48 Omeprazole 20 Mg Capsule.Dr PO 20 mg DAILY COUNTS INCLUDE 234 BEDS AT THE [facility] Administration Pharmacy Consult 1 each 05/17/20 11:19 Consult Rx Perform Med Rec MISCELLANE ONCE PRN Consult order Pharmacy Consult 1 each 05/17/20 14:40 Consult Rx Vancomycin Dosing MISCELLANE DAILY PRN Consult order Pharmacy Consult 1 each 05/18/20 17:35 Consult Rx Vancomycin Dosing MISCELLANE DAILY PRN Consult order Sodium Chloride 3 ml 05/18/20 00:00 05/18/20 08:49 0.9 % Sodium Chloride Flush 3 Ml Syringe IVFLUSH 3 ml QSHIFT COUNTS INCLUDE 234 BEDS AT THE [facility] Administration Trazodone HCl 50 mg 05/17/20 22:06 Trazodone Hcl 50 Mg Tablet PO BEDTIME PRN Insomnia Vitamin D 50 mcg 05/18/20 09:00 05/18/20 08:49 Cholecalciferol (Vitamin D3) 25 Mcg Tablet PO Not Given DAILY COUNTS INCLUDE 234 BEDS AT THE [facility] Labs CBC & Chem 7: 05/18/20 05:35 05/18/20 05:35 Assessment and Plan (1) Acute on chronic respiratory failure with hypoxia and hypercapnia: Status: Acute (2) Chronic kidney disease (CKD): Status: Acute (3) COPD (chronic obstructive pulmonary disease): Status: Acute (4) Atelectasis of right lung: Status: Acute (5) Aspiration pneumonia: Status: Acute (6) Atrial fibrillation with RVR: Problem details: not on AC due to hematoma march 2020 Status: Acute (7) Obstructive sleep apnea: Status: Acute Assessment and Plan: 70F presented with sob acute on chronic hypoxic and hypercapneic respiratory failure due to copd exacerbation, mucus plugging and possible bacterial pneumonia in setting of recent covid 19 infection steroids, bronchodilators, mucomyst nebs, broad spectrum abx (check nasal mrsa), chest PT pulm appreciated, plan for bronchoscopy today afib with rvr metoprolol not on anticoagulation due to development of rectus sheath and left pelvic sidewall hematoma with drop in hgb during [place] [facility] [place]f po lasix CKD IV stable, monitor DM insulin
--- NOTE | 2020-05-18 11:59 | MHC.SHP ---
Pre-Procedural Eval Section B Chief Complaint: Acute hypoxia mucus plug Allergies: Allergies Allergy/AdvReac Type Severity Reaction Status Date / Time exenatide [From Byetta] Allergy Unknown Verified 05/06/20 12:49 gabapentin Allergy Unknown Verified 05/06/20 12:49 glipizide Allergy Depression Verified 05/06/20 12:49 metformin Allergy Unknown Verified 05/06/20 12:49 simvastatin [From Zocor] Allergy Unknown Verified 05/06/20 12:49 zolpidem [From Ambien] Allergy Unknown Verified 05/06/20 12:49 Plan I have reviewed the history and physical and performed a pertinent physical examination on my patient. No changes have occurred unless specified.
--- NOTE | 2020-05-18 12:46 | CONS_ITS ---
DATE OF SERVICE: 05/18/2020 CHIEF COMPLAINT: Altered mental status. HISTORY OF PRESENT ILLNESS: Ms. Tee is a 70-year-old woman, who recently was discharged from the hospital with COVID-19 pneumonitis and ARDS. Apparently, she did require a bronchoscopy during that admission because of significant right-sided atelectasis and mucus plugging. The patient presented with worsening altered mental status and was evaluated in the hospital. The repeat x-ray demonstrated almost complete whiteout of the right hemothorax. The patient also has a pleural effusion on that side. She was placed on oxygen and then admitted to the hospital. She was started on vancomycin and Zosyn, also was given a dose of N-acetylcysteine to see if it will help to clear the mucus. She was also re-tested for COVID and was indeed negative, so she was placed on non-COVID floor. At this point, the patient is n.p.o. for repeat bronchoscopy. REVIEW OF SYSTEMS: Ten systems reviewed. The patient has been a little confused, but better now. She does complain of respiratory symptoms with shortness of breath and cough, difficult to expectorate. Denies any chest pains. Denies any GI or symptoms. Does have generalized weakness. She is obese. The rest of the 10-organ system is negative. PAST MEDICAL HISTORY: Renal failure, atrial fibrillation, chronic kidney disease, COPD, COVID-19, diabetes, GERD, hyperlipidemia, hypernatremia, hypokalemia, hypotension, obesity, TORRIE, spontaneous ecchymosis, and viral pneumonia. SOCIAL HISTORY: She is a former smoker. FAMILY HISTORY: Positive for diabetes. ALLERGIES: MULTIPLE. PLEASE REFER TO THE MAR INCLUDING ZOLPIDEM, ZOCOR, METFORMIN, GLIPIZIDE, GABAPENTIN, AND BYETTA, UNCLEAR OF THE REACTIONS. CURRENT MEDICATIONS: Again, please refer to the MAR, but she is on vancomycin, Zosyn, and she is getting N-acetylcysteine. PHYSICAL EXAMINATION: VITAL SIGNS: Relatively stable. She is hypertensive, blood pressure 144/64, saturating 93% on about 4 to 5 L. She did require BiPAP overnight. GENERAL: Pleasant lady, in no acute distress. HEENT: Pupils are equal and reactive to light. Oropharynx clear. NECK: Supple. LUNGS: Diminished on the right side. CARDIAC: Regular rhythm, regular rate. ABDOMEN: Positive bowel sounds, soft. EXTREMITIES: No clubbing or cyanosis. LABORATORY DATA: Her white count did improve to 6.3, hemoglobin only 7.6, and platelet count appears to be stable. Serology again, her SARS-CoV-2 was negative, at this time is positive back on the . Microbiology relatively negative bronch cultures from when she had a bronchoscopy previously. Blood cultures were also negative. The CT scan of the chest perceived by me from 05/17/2020 demonstrating what appears to be a plug like density within the proximal right mainstem bronchus resulting in near collapse of the right lung, also has an effusion. It is hard to know what comes first, but definitely the lung is not going to expand even if the thoracentesis done because of the significant mucus plugging. The patient also had chest x-ray demonstrating minimal improvement in aeration of the right lung compared to the chest x-ray after the chest PT and the Mucomyst. ASSESSMENT: A 70-year-old woman with a history of COVID-19 infection, ARDS, multiple comorbidities, presented with worsening respiratory status and altered mental status, found to have recurrent right-sided lung collapse and pleural effusion. IMPRESSION: Right lung collapse, likely secondary to mucus plugging. This could be directly related to the COVID-19 causing inflammatory secretions versus a postviral bacterial process resulting an insignificant purulent secretions, difficult to expectorate, causing plugging of the airways. The patient is also likely weakened, unable to have a strong cough to clear her own secretions at this time. She may have some degree of tracheobronchomalacia that also makes it harder for the mucus to come out due to the floppiness of the airways. We have to reassess all these issues. RECOMMENDATIONS: Bronchoscopies. PLAN: 1. Therapeutic cleaning. 2. Continue antibiotics for now. 3. Chest PT. 4. Continue N-acetylcysteine, but it is likely to be effective at this time. Further recommendation based on forthcoming data. MD CHELA Turner/GUSTABO / [id number]
[2020-05-18 13:11] LABS: Glucose, Whole Blood 162 mg/dL (60-115)
--- NOTE | 2020-05-18 13:24 | HO.ANESPROP2 ---
FORMERLY [facility], LATER [facility] Past Medical History Medical History Acute kidney failure Anemia Atrial fibrillation Atrial fibrillation with RVR Chronic kidney disease (CKD) COPD (chronic obstructive pulmonary disease) COVID-19 Diabetes GERD (gastroesophageal reflux disease) History of COVID-19 Hyperlipidemia Hypernatremia Hypokalemia Hypotension Morbid obesity Obstructive sleep apnea Spontaneous ecchymosis Viral pneumonia Social History Social History Household Members: Family Housing: House Do you presently have visiting nurse or other home services: No Smoking Status: Former smoker Use of substances other than those prescribed or required for medical reasons: No Currently Displaying Signs/Symptoms of Drug Intoxication Withdrawal: No Have you been hit, kicked, punched, or otherwise hurt by someone within the past year? If so, by whom?: No Do you feel safe in your current relationship?: Yes Is there a partner from a previous relationship who is making you feel unsafe now?: No Are you made to feel afraid or neglected: No Advance Directives: Yes Advance Directives on File: Yes Advance Directives Date on File: 05/14/20 Do you have thoughts of harming others: None Do you have a plan to hurt others: No Plan Recently lost weight without trying: No service: No Current occupational status: retired Meds Allergies Allergy/AdvReac Type Severity Reaction Status Date / Time exenatide [From Byetta] Allergy Unknown Verified 05/06/20 12:49 gabapentin Allergy Unknown Verified 05/06/20 12:49 glipizide Allergy Depression Verified 05/06/20 12:49 metformin Allergy Unknown Verified 05/06/20 12:49 simvastatin [From Zocor] Allergy Unknown Verified 05/06/20 12:49 zolpidem [From Ambien] Allergy Unknown Verified 05/06/20 12:49 Home Medications Medication Instructions Recorded Confirmed Type Spiriva with HandiHaler 1 cap INHALATION DAILY 05/06/20 05/17/20 History furosemide 40 mg PO DAILY 05/06/20 05/17/20 History insulin aspart U-100 [Novolog 0 unit SUBCUT TID 05/06/20 05/17/20 History Flexpen U-100 Insulin] montelukast 10 mg PO BEDTIME 05/06/20 05/17/20 History omeprazole 20 mg PO DAILY 05/06/20 05/17/20 History acetaminophen 650 mg PO Q4H PRN 05/17/20 05/17/20 History amoxicillin-pot clavulanate 1 tab PO BID 05/17/20 05/17/20 History [Augmentin] cholecalciferol (vitamin D3) 50 mcg PO DAILY 05/17/20 05/17/20 History [Vitamin D3] cyanocobalamin (vitamin B-12) 1,000 mcg PO DAILY 05/17/20 05/17/20 History docusate sodium 100 mg PO DAILY 05/17/20 05/17/20 History epoetin melvina-epbx [Retacrit] 10,000 unit SUBCUT WE@1000 05/17/20 05/17/20 History fluticasone propion-salmeterol 1 inh INHALATION BID 05/17/20 05/17/20 History [Advair Diskus] folic acid 1 mg PO DAILY 05/17/20 05/17/20 History geriatric vgvksfrk-jajh-qvcu 1 tab PO DAILY 05/17/20 05/17/20 History [Multivitamin w/Minerals, Iron] loratadine 10 mg PO DAILY 05/17/20 05/17/20 History metoprolol succinate 75 mg PO DAILY 05/17/20 05/17/20 History nystatin 1 appl TOPICAL BID 05/17/20 05/17/20 History trazodone 50 mg PO BEDTIME PRN 05/17/20 05/17/20 History Exam Exam Date and Time: May 18, 2020 1324 Height,Weight and Vital Signs: Height 5 ft 2 in Weight 85.275 kg Last Vital Signs Temp 97.5 F 05/18/20 13:15 Pulse 92 05/18/20 13:15 Resp 17 05/18/20 13:15 BP 105/45 L 05/18/20 13:15 Pulse Ox 96 05/18/20 13:15 Pertinent Lab Results Pertinent Lab Results: Laboratory Tests 05/17/20 05/17/20 05/17/20 11:42 11:49 11:49 WBC RBC Hgb Hct MCV MCH MCHC RDW Plt Count MPV Immature Gran % (Auto) Neut % (Auto) Lymph % (Auto) Page % (Auto) Eos % (Auto) Baso % (Auto) Lymph # (Auto) Page # (Auto) Eos # (Auto) Baso # (Auto) Abs Immat Gran (auto) Absolute Neuts (auto) Absolute Nucleated RBC Nucleated RBC % (auto) Smear Tech's Comments PT 12.6 INR 1.1 APTT 33.2 ABG pH 7.34 L ABG pCO2 62 H* ABG pO2 50 L* ABG HCO3 34 H ABG O2 Saturation 84.0 ABG Base Excess 7.9 VBG pH VBG pCO2 VBG pO2 VBG HCO3 VBG O2 Saturation VBG Base Excess Oxygen Given 5 L Sodium Potassium Chloride Carbon Dioxide Anion Gap BUN Creatinine Estim Creat Clear Calc Estimated GFR POC Glucose Random Glucose Lactic Acid 0.7 Calcium Magnesium Total Bilirubin Direct Bilirubin AST ALT Alkaline Phosphatase Troponin I High Sens B-Natriuretic Peptide Total Protein Albumin Lipase COVID-19 (YESSENIA) COVIDAPX Group 05/17/20 05/17/20 05/17/20 11:49 11:49 11:50 WBC 9.5 RBC 2.69 L Hgb 8.1 L Hct 27.9 L MCV 103.7 H MCH 30.1 MCHC 29.0 L RDW 18.4 H Plt Count 158 L MPV 10.7 Immature Gran % (Auto) 1.4 H Neut % (Auto) 83.2 H Lymph % (Auto) 7.5 L Page % (Auto) 5.8 Eos % (Auto) 1.8 Baso % (Auto) 0.3 Lymph # (Auto) 0.7 L Page # (Auto) 0.6 Eos # (Auto) 0.2 Baso # (Auto) 0.0 Abs Immat Gran (auto) 0.13 H Absolute Neuts (auto) 7.9 Absolute Nucleated RBC 0.000 Nucleated RBC % (auto) 0.0 Smear Tech's Comments PT INR APTT ABG pH ABG pCO2 ABG pO2 ABG HCO3 ABG O2 Saturation ABG Base Excess VBG pH VBG pCO2 VBG pO2 VBG HCO3 VBG O2 Saturation VBG Base Excess Oxygen Given Sodium Potassium Chloride Carbon Dioxide Anion Gap BUN Creatinine Estim Creat Clear Calc Estimated GFR POC Glucose Random Glucose Lactic Acid Calcium Magnesium Total Bilirubin Direct Bilirubin AST ALT Alkaline Phosphatase Troponin I High Sens 4.3 B-Natriuretic Peptide Total Protein Albumin Lipase 20 COVID-19 (YESSENIA) COVID-[employer] 05/17/20 05/17/20 05/17/20 11:50 11:50 12:31 WBC RBC Hgb Hct MCV MCH MCHC RDW Plt Count MPV Immature Gran % (Auto) Neut % (Auto) Lymph % (Auto) Page % (Auto) Eos % (Auto) Baso % (Auto) Lymph # (Auto) Page # (Auto) Eos # (Auto) Baso # (Auto) Abs Immat Gran (auto) Absolute Neuts (auto) Absolute Nucleated RBC Nucleated RBC % (auto) Smear Tech's Comments PT INR APTT ABG pH ABG pCO2 ABG pO2 ABG HCO3 ABG O2 Saturation ABG Base Excess VBG pH VBG pCO2 VBG pO2 VBG HCO3 VBG O2 Saturation VBG Base Excess Oxygen Given Sodium 144 Potassium 4.2 Chloride 103 Carbon Dioxide 31 H Anion Gap 14 BUN 50 H Creatinine 2.94 H Estim Creat Clear Calc 18.3 Estimated GFR 16 POC Glucose Random Glucose 201 H D Lactic Acid Calcium 8.5 Magnesium 1.8 Total Bilirubin 0.3 Direct Bilirubin 0.2 AST 6 D ALT 8 Alkaline Phosphatase 65 Troponin I High Sens B-Natriuretic Peptide 171 H Total Protein 6.4 L Albumin 3.0 L Lipase COVID-19 (YESSENIA) Negative COVID-19 Clin Com See Note 05/17/20 05/17/20 05/17/20 14:34 15:12 22:44 WBC RBC Hgb Hct MCV MCH MCHC RDW Plt Count MPV Immature Gran % (Auto) Neut % (Auto) Lymph % (Auto) Page % (Auto) Eos % (Auto) Baso % (Auto) Lymph # (Auto) Page # (Auto) Eos # (Auto) Baso # (Auto) Abs Immat Gran (auto) Absolute Neuts (auto) Absolute Nucleated RBC Nucleated RBC % (auto) Smear Tech's Comments PT INR APTT ABG pH 7.32 L ABG pCO2 61 H* ABG pO2 77 L ABG HCO3 32 H ABG O2 Saturation 95.0 ABG Base Excess 5.8 VBG pH 7.21 L VBG pCO2 89 VBG pO2 35 VBG HCO3 36 VBG O2 Saturation 54.0 VBG Base Excess 7.0 Oxygen Given 5 L Sodium Potassium Chloride Carbon Dioxide Anion Gap BUN Creatinine Estim Creat Clear Calc Estimated GFR POC Glucose 158 H Random Glucose Lactic Acid Calcium Magnesium Total Bilirubin Direct Bilirubin AST ALT Alkaline Phosphatase Troponin I High Sens B-Natriuretic Peptide Total Protein Albumin Lipase COVID-19 (YESSENIA) COVID-19 Clin Com 05/18/20 05/18/20 05/18/20 05:35 05:35 07:18 WBC 6.3 RBC 2.50 L Hgb 7.6 L Hct 24.9 L MCV 99.6 H MCH 30.4 MCHC 30.5 L RDW 17.8 H Plt Count 197 MPV 10.5 Immature Gran % (Auto) 1.9 H Neut % (Auto) 91.0 H Lymph % (Auto) 5.8 L Page % (Auto) 1.1 L Eos % (Auto) 0.0 Baso % (Auto) 0.2 Lymph # (Auto) 0.4 L Page # (Auto) 0.1 Eos # (Auto) 0.0 Baso # (Auto) 0.0 Abs Immat Gran (auto) 0.12 H Absolute Neuts (auto) 5.8 Absolute Nucleated RBC 0.000 Nucleated RBC % (auto) 0.0 Smear Tech's Comments VERIFIED PT INR APTT ABG pH ABG pCO2 ABG pO2 ABG HCO3 ABG O2 Saturation ABG Base Excess VBG pH VBG pCO2 VBG pO2 VBG HCO3 VBG O2 Saturation VBG Base Excess Oxygen Given Sodium 143 Potassium 4.9 Chloride 104 Carbon Dioxide 27 Anion Gap 17 BUN 55 H Creatinine 2.85 H Estim Creat Clear Calc 18.9 Estimated GFR 16 POC Glucose 166 H Random Glucose 170 H Lactic Acid Calcium 8.2 L Magnesium Total Bilirubin Direct Bilirubin AST ALT Alkaline Phosphatase Troponin I High Sens B-Natriuretic Peptide Total Protein Albumin Lipase COVID-19 (YESSENIA) COVID-19 Clin Com 05/18/20 11:19 WBC RBC Hgb Hct MCV MCH MCHC RDW Plt Count MPV Immature Gran % (Auto) Neut % (Auto) Lymph % (Auto) Page % (Auto) Eos % (Auto) Baso % (Auto) Lymph # (Auto) Page # (Auto) Eos # (Auto) Baso # (Auto) Abs Immat Gran (auto) Absolute Neuts (auto) Absolute Nucleated RBC Nucleated RBC % (auto) Smear Tech's Comments PT INR APTT ABG pH ABG pCO2 ABG pO2 ABG HCO3 ABG O2 Saturation ABG Base Excess VBG pH VBG pCO2 VBG pO2 VBG HCO3 VBG O2 Saturation VBG Base Excess Oxygen Given Sodium Potassium Chloride Carbon Dioxide Anion Gap BUN Creatinine Estim Creat Clear Calc Estimated GFR POC Glucose 162 H Random Glucose Lactic Acid Calcium Magnesium Total Bilirubin Direct Bilirubin AST ALT Alkaline Phosphatase Troponin I High Sens B-Natriuretic Peptide Total Protein Albumin Lipase COVID-19 (YESSENIA) COVID-19 Clin Com
--- NOTE | 2020-05-18 15:31 | MHC.CM.PN ---
IMM 05/18/20 Female 70 dx Acute Hypoxia mucus plug. Pt from [facility]. DP return to [facility] via BLS. CM will follow.
[2020-05-18 15:48] LABS: Vancomycin Random 10.6 mcg/mL (15-20)
[2020-05-18 16:21] LABS: Glucose, Whole Blood 164 mg/dL (60-115)
[2020-05-18] MEDS: Insulin Lispro 100 UNIT/ML 3 ML VIAL SUBCUT ×2 (17:09→20:21)
[2020-05-18 20:11] LABS: Glucose, Whole Blood 209 mg/dL (60-115)
[2020-05-18] MEDS: Montelukast Sodium 10 MG TABLET PO (20:22)
[2020-05-18] MEDS: traZODone HCL 50 MG TABLET PO (22:37)
[2020-05-19] VITALS (15 sets, daily range): BP systolic 102–134; BP diastolic 44–61; PULSE 78–94; RESP 16–22; TEMP 36.2–36.6; O2SAT 95–100
[2020-05-19] MEDS: Albuterol/Iprat 2.5/0.5MG 3 ML AMPUL.NEB INHALE ×6 (00:58→23:43)
[2020-05-19] MEDS: Acetylcysteine 10 % 400 MG/4 ML VIAL 200 MG INHALE ×4 (05:14→23:45)
[2020-05-19] MEDS: Piperacillin Sodium/Tazobactam 2.25 GM in 0.9 % Sodium Chloride 50 ML IV ×3 (06:13→23:08)
--- NOTE | 2020-05-19 06:30 | XR_ITS ---
EXAMINATION: XR CHEST CLINICAL INFORMATION: Hypoxia COMPARISON: 05/17/2020 CT TECHNIQUE: Frontal view of the chest was obtained. FINDINGS: There is blunting of the right costophrenic angle consistent with a small to moderate pleural effusion and underlying parenchymal opacification; appearance is similar to minimally improved from 05/17/2020. Small left pleural effusion and retrocardiac opacity noted. No appreciable pneumothorax. Cardiac silhouette appears mildly enlarged. No acute osseous findings are seen. XR/XR chest 1V IMPRESSION: Small to moderate right pleural effusion with underlying basilar parenchymal opacification, similar to minimally improved from 05/17/2020. Small left pleural effusion with associated retrocardiac opacity.
[2020-05-19 06:46] LABS: Basophils Percent Auto 0.1 % (0-2); Hematocrit 22.7 % (37-47); Imm Gran Abs Auto 0.07 X10*3/uL (0.00-0.03); Imm Gran Pct Auto 0.9 % (0.0-0.4); Lymphocytes Absolute Auto 0.3 X10*3/uL (1.2-4.9); Lymphocytes Percent Auto 4.2 % (20-40); MANUAL DIFF FLAG SCAN; Mean Corpuscular Hemoglobin 29.7 pg (27.0-33.0); Mean Corpuscular Volume 99.1 fL (80-98); Mean Platelet Volume 10.6 fL (9.4-12.3); Monocytes Absolute Auto 0.2 X10*3/uL (0.1-1.2); Monocytes Percent Auto 2.8 % (2-11); Platelet Count 219 X10*3/uL (160-400); Red Blood Count 2.29 X10*6/uL (4.20-5.50); Red Cell Distribution Width 17.7 % (11.0-16.0); SCAN SMEAR FLAG 1; White Blood Count 7.6 X10*3/uL (4.8-10.8)
[2020-05-19 07:21] LABS: Glucose, Whole Blood 176 mg/dL (60-115)
[2020-05-19 07:22] LABS: Anion Gap 12 (12-20); Blood Urea Nitrogen 65 mg/dL (9-16); Calcium 8.3 mg/dL (8.4-10.2); Carbon Dioxide 31 mmol/L (22-29); Chloride 104 mmol/L (96-108); Creatinine Clr Calc Pharmacy 21.4; Estimated Glomerular Filt Rate 19; Glucose Fasting 195 mg/dL (60-99); Potassium 4.5 mmol/l (3.3-5.1); Sodium 142 mmol/L (135-145)
[2020-05-19 07:53] LABS: Hemoglobin 6.8 g/dl (12.0-16.0)
[2020-05-19] MEDS: methylPREDNISolone Sod Succ/PF 125 MG/2 ML VIAL 60 MG IVPUSH ×2 (08:05→20:49)
[2020-05-19] MEDS: 0.9 % Sodium Chloride Flush 3 ML SYRINGE IVFLUSH ×3 (08:05→20:49)
[2020-05-19] MEDS: Insulin Lispro 100 UNIT/ML 3 ML VIAL SUBCUT ×4 (08:05→20:48)
[2020-05-19] MEDS: amLODIPine Besylate 10 MG TABLET PO (08:06)
[2020-05-19] MEDS: Omeprazole 20 MG CAPSULE.DR PO (08:06)
[2020-05-19] MEDS: Metoprolol Succinate ER 25 MG TAB.ER.24H 75 MG PO (08:06)
[2020-05-19] MEDS: Cyanocobalamin (Vitamin B-12) 1,000 MCG TABLET 1000 MCG PO (08:06)
[2020-05-19] MEDS: Loratadine 10 MG TABLET PO (08:06)
[2020-05-19] MEDS: Furosemide 40 MG TABLET PO (08:06)
[2020-05-19] MEDS: Cholecalciferol (Vitamin D3) 25 MCG TABLET 50 MCG PO (08:07)
[2020-05-19] MEDS: Folic Acid 1 MG TABLET PO (08:07)
[2020-05-19] MEDS: Docusate Sodium 100 MG CAPSULE PO (08:08)
[2020-05-19 08:13] LABS: SLIDE REVIEW VERIFIED
--- NOTE | 2020-05-19 09:29 | OP_ITS ---
SURGEON: Dominic Love MD PREOPERATIVE DIAGNOSIS: POSTOPERATIVE DIAGNOSIS: Right lung collapse due to atelectasis. PROCEDURE PERFORMED: ESTIMATED BLOOD LOSS: COMPLICATIONS: ANESTHESIA: General endotracheal anesthesia. ASSISTANTS: SPECIMENS: PREPROCEDURE DIAGNOSIS: Right lung collapse due to atelectasis. DESCRIPTION OF PROCEDURE: After the patient was adequately sedated and intubated, the flexible digital bronchoscope was inserted over the ET tube to the level of the main sen. The patient had thick mucoid secretions up to the proximal right mainstem bronchus. No foreign bodies appreciated. Therapeutic suctioning used was saline in the right mainstem bronchus, bronchus intermedius, right upper lobe, right middle lobe and right lower lobe. Multiple attempts to clear secretions with some difficulties, multiple times I had to remove the bronchoscope for cleaning the port. The Ariel was set up at a higher suction rate and we were able to remove the trap increasing the suctions itself. We were able to clean out all the mucoid secretions successfully. At the end of the procedure, the patient tolerated the procedure well. No evidence of any endobronchial lesions or findings bilaterally in the left or the right lung. No foreign bodies again noted. No hemoptysis. The patient did have some floppiness of the airways suggesting some bronchomalacia. The bronchoscope was then removed. The total endoscopic time approximately 15 minutes. The patient tolerated the procedure well. Vital signs were stable throughout the procedure. Oxygenation improved after procedure. IMPRESSION: Successful therapeutic suctioning of the airways primarily on the right side, although the whole tracheobronchial tree was examined. Bronchial washings were sent from the right lung. MD CHELA Turner/MODL / [id number]
--- NOTE | 2020-05-19 09:32 | P.PNPL_ITS ---
Subjective Subjective Date of Service: 05/19/20 Interval history: Seen and examined. S/P bronchoscopy with significant mucoid secretions in the R lung s/p therapeutic suctioning. She is feeling better. CXR improved, but still has a moderate pleural effusion. Objective Data Labs CBC & Chem 7: 05/19/20 05:52 05/19/20 05:53 Labs: Laboratory Results - last 24 hr 05/18/20 05/18/20 05/18/20 11:19 15:11 16:17 WBC RBC Hgb Hct MCV MCH MCHC RDW Plt Count MPV Immature Gran % (Auto) Neut % (Auto) Lymph % (Auto) [place] % (Auto) Eos % (Auto) Baso % (Auto) Lymph # (Auto) [place] # (Auto) Eos # (Auto) Baso # (Auto) Abs Immat Gran (auto) Absolute Neuts (auto) Absolute Nucleated RBC Nucleated RBC % (auto) Smear Tech's Comments Sodium Potassium Chloride Carbon Dioxide Anion Gap BUN Creatinine Estim Creat Clear Calc Estimated GFR POC Glucose 162 H 164 H Fasting Glucose Calcium Random Vancomycin 10.6 L 05/18/20 05/19/20 05/19/20 20:04 05:52 05:53 WBC 7.6 RBC 2.29 L Hgb 6.8 L* Hct 22.7 L MCV 99.1 H MCH 29.7 MCHC 30.0 L RDW 17.7 H Plt Count 219 MPV 10.6 Immature Gran % (Auto) 0.9 H Neut % (Auto) 92.0 H Lymph % (Auto) 4.2 L [place] % (Auto) 2.8 Eos % (Auto) 0.0 Baso % (Auto) 0.1 Lymph # (Auto) 0.3 L [place] # (Auto) 0.2 Eos # (Auto) 0.0 Baso # (Auto) 0.0 Abs Immat Gran (auto) 0.07 H Absolute Neuts (auto) 7.0 Absolute Nucleated RBC 0.000 Nucleated RBC % (auto) 0.0 Smear Tech's Comments VERIFIED Sodium 142 Potassium 4.5 Chloride 104 Carbon Dioxide 31 H Anion Gap 12 BUN 65 H Creatinine 2.51 H Estim Creat Clear Calc 21.4 Estimated GFR 19 POC Glucose 209 H Fasting Glucose 195 H Calcium 8.3 L Random Vancomycin 05/19/20 07:16 WBC RBC Hgb Hct MCV MCH MCHC RDW Plt Count MPV Immature Gran % (Auto) Neut % (Auto) Lymph % (Auto) [place] % (Auto) Eos % (Auto) Baso % (Auto) Lymph # (Auto) [place] # (Auto) Eos # (Auto) Baso # (Auto) Abs Immat Gran (auto) Absolute Neuts (auto) Absolute Nucleated RBC Nucleated RBC % (auto) Smear Tech's Comments Sodium Potassium Chloride Carbon Dioxide Anion Gap BUN Creatinine Estim Creat Clear Calc Estimated GFR POC Glucose 176 H Fasting Glucose Calcium Random Vancomycin Microbiology Microbiology Results: Microbiology 05/18/20 12:59 Lung - Right Routine Culture - Preliminary No growth to date. 05/17/20 12:03 Blood - Venous Blood Culture - Preliminary No growth after 24 hours. 05/17/20 11:49 Blood - Venous Blood Culture - Preliminary No growth after 24 hours. Review of Systems Review of Systems Constitutional: Denies fever, denies Chills Eyes: denies blurry vision ENT: denies sore throat CVS: denies chest pain Respiratory: dyspnea GI: no abdominal pain : denies dysuria MSK: denies neck pain Skin: denies rash Neuro: denies specific motor weakness Psych: denies suicidal ideation Endocrine: denies heat/cold intoleratnce Hematologic: denies easy bleeding Allergy: denies hives Physical Exam Vital Signs: Vital Signs: Last Vital Signs Temp 97.9 F 05/19/20 07:27 Pulse 87 05/19/20 08:34 Resp 20 05/19/20 07:27 BP 129/60 05/19/20 08:06 Pulse Ox 98 05/19/20 07:27 Body Mass Index 34.4 Const: General: alert Eyes: Pupils: Equal, round and reactive pupils present Neck: Neck: Yes normal visual inspection, Yes full ROM and Yes no lymphadenopa thy Chest: Chest palpation & inspection: normal inspection of the chest Resp: Auscultation: diminished lung sounds Cardio: Rate: regular rate Rhythm: regular rhythm Heart sounds: S1 no rmal heart sound present and S2 normal heart sound present GI: Palpation (GI): Soft to palpation and nontender Auscultation: normal bowel sounds : General: Yes no CVA tenderness Back/Spine/Pelvis: Back: no CVA tenderness Skin: General skin exam: rashes and/or lesions noted Neuro: Cranial nerves: Yes Equal, round and reactive pupils present Assessment and Plan Assessment and plan (1) Atelectasis of right lung: Status: Acute Assessment and Plan: OOB to chair CPT (2) Aspiration pneumonia: Status: Acute Assessment and Plan: Awaiting cultures (3) Pleural effusion: Status: Acute Assessment and Plan: Recommend thoracentesis when able. (4) COPD (chronic obstructive pulmonary disease): Status: Acute Assessment and Plan: Continue respiratory failure Time Spent With Patient Time: Total time spent is greater than 50% in coordination of care (as documented) at patient's floor/unit and/or counseling patient: Time with patient: 15 - 24 minutes
[2020-05-19] MEDS: Acetaminophen 325 MG TABLET 650 MG PO ×2 (10:55→17:19)
[2020-05-19 11:19] LABS: Glucose, Whole Blood 345 mg/dL (60-115)
[2020-05-19] MEDS: Fluticasone/Vilanterol 100/25 BLST.W.DEV 1 PUFF INHALE (11:47)
--- NOTE | 2020-05-19 11:48 | P.PNIM_ITS ---
Subjective Subjective Date of Service: 05/19/20 Interval History: improved sob Cardiovascular Cardiovascular: Reports no additional cardiovascular complaints Gastrointestinal Gastrointestinal: Reports no additional gastrointestinal complaints Physical Exam Vital Signs: Vital Signs: Last Vital Signs Temp 97.6 F 05/19/20 11:26 Pulse 84 05/19/20 11:26 Resp 22 H 05/19/20 11:26 BP 102/59 L 05/19/20 11:26 Pulse Ox 98 05/19/20 11:26 Body Mass Index 34.4 General: AO X 3, no acute distress Resp: diminished on right CVS: S1,S2,RRR GI: soft, non tender, non distended Neuro: motor grossly intact Psych: appropriate affect Objective Data Current Medications Generic Name Dose Route Start Last Admin Trade Name Freq PRN Reason Stop Dose Admin Acetaminophen 650 mg 05/17/20 22:06 05/19/20 10:55 Acetaminophen 325 Mg Tablet PO 650 mg Q4H PRN Administration GENERAL DISCOMFORT Acetylcysteine 200 mg 05/19/20 12:00 Acetylcysteine 10 % 400 Mg/4 Ml Vial INHALE RQ6H JASMINE Albuterol/Ipratropium 3 ml 05/18/20 20:00 05/19/20 08:32 Albuterol/Iprat 2.5/0.5mg 3 Ml Ampul.Neb INHALE 3 ml RQ4H JASMINE Administration Amlodipine Besylate 10 mg 05/18/20 09:00 05/19/20 08:06 Amlodipine Besylate 10 Mg Tablet PO 10 mg DAILY JASMINE Administration Protocol Cyanocobalamin 1,000 mcg 05/18/20 09:00 05/19/20 08:06 Cyanocobalamin (Vitamin B-12) 1,000 Mcg Tablet PO 1,000 mcg DAILY JASMINE Administration Docusate Sodium 100 mg 05/18/20 09:00 05/19/20 08:08 Docusate Sodium 100 Mg Capsule PO 100 mg DAILY JASMINE Administration Fluticasone/Vilanterol 1 puff 05/19/20 08:00 05/19/20 11:47 Fluticasone/Vilanterol 100/25 Blst.W.Dev INHALE 1 puff DAILY@0800 JASMINE Administration Folic Acid 1 mg 05/18/20 09:00 05/19/20 08:07 Folic Acid 1 Mg Tablet PO 1 mg DAILY JASMINE Administration Furosemide 40 mg 05/18/20 09:00 05/19/20 08:06 Furosemide 40 Mg Tablet PO 40 mg DAILY JASMINE Administration Protocol Vancomycin HCl 1,000 mg/ 270 mls @ 270 mls/hr 05/19/20 15:00 Sodium Chloride IV Q48H JASMINE Piperacillin Sod/Tazobactam 50 mls @ 100 mls/hr 05/17/20 23:00 05/19/20 08:42 Sod 2.25 gm/ Sodium Chloride IV Infused Q8H JASMINE Infusion Insulin Human Lispro 0 unit 05/17/20 22:06 05/19/20 08:05 Insulin Lispro 100 Unit/Ml 3 Ml Vial SUBCUT 2 unit [facility] Administration Protocol Loratadine 10 mg 05/18/20 09:00 05/19/20 08:06 Loratadine 10 Mg Tablet PO 10 mg DAILY JASMINE Administration Methylprednisolone Sodium Succinate 60 mg 05/17/20 22:06 05/19/20 08:05 Methylprednisolone Sod Succ/Pf 125 Mg/2 Ml Vial IVPUSH 60 mg BID JASMINE Administration Metoprolol Succinate 75 mg 05/18/20 09:00 05/19/20 08:06 Metoprolol Succinate Er 25 Mg Tab.Er.24h PO 75 mg DAILY JASMINE Administration Protocol Montelukast Sodium 10 mg 05/17/20 22:06 05/18/20 20:22 Montelukast Sodium 10 Mg Tablet PO 10 mg BEDTIME JASMINE Administration Omeprazole 20 mg 05/18/20 09:00 05/19/20 08:06 Omeprazole 20 Mg Capsule. PO 20 mg DAILY JASMINE Administration Pharmacy Consult 1 each 05/17/20 11:19 Consult Rx Perform Med Rec MISCELLANE ONCE PRN Consult order Pharmacy Consult 1 each 05/17/20 14:40 Consult Rx Vancomycin Dosing MISCELLANE DAILY PRN Consult order Pharmacy Consult 1 each 05/18/20 17:35 Consult Rx Vancomycin Dosing MISCELLANE DAILY PRN Consult order Sodium Chloride 3 ml 05/18/20 00:00 05/19/20 08:05 0.9 % Sodium Chloride Flush 3 Ml Syringe IVFLUSH 3 ml QSHIFT JASMINE Administration Trazodone HCl 50 mg 05/17/20 22:06 05/18/20 22:37 Trazodone Hcl 50 Mg Tablet PO 50 mg BEDTIME PRN Administration Insomnia Vitamin D 50 mcg 05/18/20 09:00 05/19/20 08:07 Cholecalciferol (Vitamin D3) 25 Mcg Tablet PO 50 mcg DAILY JASMINE Administration Labs CBC & Chem 7: 05/19/20 05:52 05/19/20 05:53 Microbiology Microbiology Results: Microbiology 05/18/20 12:59 Lung - Right Gram Stain - Final 05/18/20 12:59 Lung - Right Routine Culture - Preliminary No growth to date. 05/17/20 12:03 Blood - Venous Blood Culture - Preliminary No growth after 24 hours. 05/17/20 11:49 Blood - Venous Blood Culture - Preliminary No growth after 24 hours. Assessment and Plan (1) Acute on chronic respiratory failure with hypoxia and hypercapnia: Status: Acute (2) Chronic kidney disease (CKD): Status: Acute (3) COPD (chronic obstructive pulmonary disease): Status: Acute (4) Atelectasis of right lung: Status: Acute (5) Aspiration pneumonia: Status: Acute (6) Atrial fibrillation with RVR: Problem details: not on AC due to hematoma march 2020 Status: Acute (7) Obstructive sleep apnea: Status: Acute Assessment and Plan: 70F presented with sob acute on chronic hypoxic and hypercapneic respiratory failure due to copd exace rbation, mucus plugging and possible bacterial pneumonia in setting of recent covid 19 infection steroids, bronchodilators, mucomyst nebs s/p bronchosacopy with clearance of mucus plug 05/18/20 and significant improvement in hypoxia afib with rvr metoprolol not on anticoagulation due to development of rectus sheath and left pelvic sidewall hematoma with drop in hgb during hospitalization in 2019 at [facility] [place] anemia of inflammation will transfuse one unit, monitor chronic diastolic chf po lasix CKD IV stable, monitor DM insulin
--- NOTE | 2020-05-19 12:26 | MHC.CM.PN ---
DP return to [facility] via BLS. Pt is receiving a blood transfusion today. CM will follow.
--- NOTE | 2020-05-19 14:06 | HO.POSTANES ---
Post Anesthesia Evaluation Post Anesthesia Evaluation Vital Signs: Vital Signs Temp Pulse Resp BP Pulse Ox 05/19/20 13:13 97.1 F 82 16 113/52 L 05/19/20 12:52 97.2 F 87 18 129/44 L 05/19/20 11:55 78 05/19/20 11:26 97.6 F 84 22 H 102/59 L 98 05/19/20 08:34 87 05/19/20 08:06 91 129/60 05/19/20 07:27 97.9 F 91 20 129/60 98 05/19/20 05:15 84 05/19/20 03:45 97.7 F 88 18 120/59 L 95 Anesthesia: General Endotracheal-GETA Mental Status: Awake Pain Control: Satisfactory Nausea/Vomiting: None Hydration: Adequate Anesthesia-Related Issues: No Anes. Related Issues
[2020-05-19 16:17] LABS: Glucose, Whole Blood 201 mg/dL (60-115)
[2020-05-19] MEDS: vancomycin HCL 1,000 MG in 0.9 % Sodium Chloride 250 ML 270 MG IV (17:22)
[2020-05-19 20:24] LABS: Glucose, Whole Blood 220 mg/dL (60-115)
[2020-05-20] VITALS (13 sets, daily range): BP systolic 130–157; BP diastolic 58–64; PULSE 74–103; RESP 16–22; TEMP 36.2–36.7; O2SAT 94–99
--- NOTE | 2020-05-20 | US_ITS ---
EXAMINATION: ULTRASOUND-GUIDED THORACENTESIS CLINICAL INFORMATION: Right pleural effusion. COMPARISON: None TECHNIQUE: Following explanation of ultrasound-guided right thoracentesis procedure, benefits and risk, a written consent was obtained. The patient was placed sitting on ultrasound stretcher with preliminary ultrasound imaging obtained through the posterior chest. An optimal site was selected, marked, cleaned and draped in the usual sterile manner. 1% lidocaine was injected at the marked site. Through a small skin incision a 5 [place] catheter was advanced into the pleural space. After observing fluid return, the catheter was connected to suction bottle via connecting cannula. After obtaining all fluid and observing no more fluid and at the same time patient experiencing chest pain, the catheter was withdrawn making sure no air leaked in by placing gauze coated gel over the incision site as the catheter was pulled out. Sterile dressing applied postprocedure. Patient on procedure extremely well. Chest x-ray inspiration and expiration was to be obtained. FINDINGS: On preliminary imaging there is moderate right basilar pleural effusion. Approximately 750 mL of light yellowish fluid was drained from the right side. Part of this fluid was sent to the lab for cell count , differential, glucose, LDH, total protein and culture and Gram stain. US/US drain thoracentesis IMPRESSION: Successful ultrasound-guided right thoracentesis performed without immediate complications.
--- NOTE | 2020-05-20 | XR_ITS ---
EXAMINATION: XR CHEST 2 views. CLINICAL INFORMATION: Post right thoracentesis COMPARISON: Chest x-ray 05/19/2020 at 6:33 AM TECHNIQUE: 2 views of the chest were obtained. FINDINGS: Inspiration and expiration views of chest reveals resolution of the pleural right pleural effusion. There is no expansion of right lung likely secondary to trapped lung. However there is ipsilateral mediastinal shift slightly more than the previous exam from 05/19/2020 at 6:33 AM. There is some patchy opacity seen in both lung bases. The upper lungs are clear. The heart size expanded. The pulmonary vascularity is normal. No gross bony abnormality seen.. XR/XR chest 2V IMPRESSION: Resolution of right pleural effusion with nonexpansion of right lung likely secondary to trapped lung or adhesions. Patient may need decortication. No pneumothorax is seen at this time. Mild cardiomegaly.
[2020-05-20] MEDS: Albuterol/Iprat 2.5/0.5MG 3 ML AMPUL.NEB INHALE ×4 (05:10→20:27)
[2020-05-20] MEDS: Acetylcysteine 10 % 400 MG/4 ML VIAL 200 MG INHALE ×2 (05:10→11:39)
[2020-05-20] MEDS: Piperacillin Sodium/Tazobactam 2.25 GM in 0.9 % Sodium Chloride 50 ML IV ×3 (06:13→23:35)
[2020-05-20 06:50] LABS: Hematocrit 26.6 % (37-47); Hemoglobin 8.2 g/dl (12.0-16.0); Imm Gran Abs Auto 0.09 X10*3/uL (0.00-0.03); Imm Gran Pct Auto 1.4 % (0.0-0.4); Lymphocytes Absolute Auto 0.3 X10*3/uL (1.2-4.9); Lymphocytes Percent Auto 4.5 % (20-40); MANUAL DIFF FLAG SCAN; Mean Corpuscular HGB Conc 30.8 g/dl (31.0-35.0); Mean Corpuscular Hemoglobin 30.1 pg (27.0-33.0); Mean Corpuscular Volume 97.8 fL (80-98); Mean Platelet Volume 10.4 fL (9.4-12.3); Monocytes Absolute Auto 0.2 X10*3/uL (0.1-1.2); Monocytes Percent Auto 2.3 % (2-11); Neutrophils Absolute Auto 5.9 X10*3/uL (2.0-8.3); Neutrophils Percent Auto 91.8 % (45-73); Platelet Count 197 X10*3/uL (160-400); Red Blood Count 2.72 X10*6/uL (4.20-5.50); Red Cell Distribution Width 17.2 % (11.0-16.0); SCAN SMEAR FLAG 1; White Blood Count 6.4 X10*3/uL (4.8-10.8)
[2020-05-20 07:17] LABS: Anion Gap 14 (12-20); Blood Urea Nitrogen 70 mg/dL (9-16); Calcium 8.1 mg/dL (8.4-10.2); Carbon Dioxide 29 mmol/L (22-29); Chloride 105 mmol/L (96-108); Creatinine Clr Calc Pharmacy 21.8; Estimated Glomerular Filt Rate 19; Glucose Fasting 226 mg/dL (60-99); Magnesium 1.9 mg/dL (1.6-2.6); Potassium 4.5 mmol/l (3.3-5.1); Sodium 143 mmol/L (135-145)
[2020-05-20 07:26] LABS: Glucose, Whole Blood 198 mg/dL (60-115)
[2020-05-20 07:49] LABS: SLIDE REVIEW VERIFIED
[2020-05-20] MEDS: Cholecalciferol (Vitamin D3) 25 MCG TABLET 50 MCG PO (08:10)
[2020-05-20] MEDS: Docusate Sodium 100 MG CAPSULE PO (08:11)
[2020-05-20] MEDS: amLODIPine Besylate 10 MG TABLET PO (08:11)
[2020-05-20] MEDS: Loratadine 10 MG TABLET PO (08:11)
[2020-05-20] MEDS: Omeprazole 20 MG CAPSULE.DR PO (08:11)
[2020-05-20] MEDS: Furosemide 40 MG TABLET PO (08:11)
[2020-05-20] MEDS: Cyanocobalamin (Vitamin B-12) 1,000 MCG TABLET 1000 MCG PO (08:11)
[2020-05-20] MEDS: Folic Acid 1 MG TABLET PO (08:13)
[2020-05-20] MEDS: Insulin Lispro 100 UNIT/ML 3 ML VIAL SUBCUT ×4 (08:13→20:46)
[2020-05-20] MEDS: Metoprolol Succinate ER 25 MG TAB.ER.24H 75 MG PO (08:13)
[2020-05-20] MEDS: methylPREDNISolone Sod Succ/PF 125 MG/2 ML VIAL 60 MG IVPUSH ×2 (08:13→20:46)
[2020-05-20] MEDS: 0.9 % Sodium Chloride Flush 3 ML SYRINGE IVFLUSH ×3 (08:14→23:31)
[2020-05-20] MEDS: Fluticasone/Vilanterol 100/25 BLST.W.DEV 1 PUFF INHALE (08:16)
--- NOTE | 2020-05-20 09:25 | PM.PNPUL ---
Subjective Subjective Date of Service: 05/20/20 Interval history: The patient seen on exam. Overall feeling better. Still on the oxygen supplementation. She is still coughing but no expectoration the mucus production or congestion at this time. She has tried not to lay on her right side. She will be going for thoracentesis this morning. Microbiology from the bronchoscopy no growth today on the current antibiotics. Objective Data Labs CBC & Chem 7: 05/20/20 06:05 05/20/20 06:05 Labs: Laboratory Results - last 24 hr 05/19/20 05/19/20 05/19/20 09:07 11:14 16:03 WBC RBC Hgb Hct MCV MCH MCHC RDW Plt Count MPV Immature Gran % (Auto) Neut % (Auto) Lymph % (Auto) [place] % (Auto) Eos % (Auto) Baso % (Auto) Lymph # (Auto) [place] # (Auto) Eos # (Auto) Baso # (Auto) Abs Immat Gran (auto) Absolute Neuts (auto) Absolute Nucleated RBC Nucleated RBC % (auto) Smear Tech's Comments Sodium Potassium Chloride Carbon Dioxide Anion Gap BUN Creatinine Estim Creat Clear Calc Estimated GFR POC Glucose 345 H 201 H Fasting Glucose Calcium Magnesium Blood Type O Positive Antibody Screen NEGATIVE Crossmatch See Detail 05/19/20 05/20/20 05/20/20 20:20 06:05 06:05 WBC 6.4 RBC 2.72 L Hgb 8.2 L D Hct 26.6 L MCV 97.8 MCH 30.1 MCHC 30.8 L RDW 17.2 H Plt Count 197 MPV 10.4 Immature Gran % (Auto) 1.4 H Neut % (Auto) 91.8 H Lymph % (Auto) 4.5 L [place] % (Auto) 2.3 Eos % (Auto) 0.0 Baso % (Auto) 0.0 Lymph # (Auto) 0.3 L [place] # (Auto) 0.2 Eos # (Auto) 0.0 Baso # (Auto) 0.0 Abs Immat Gran (auto) 0.09 H Absolute Neuts (auto) 5.9 Absolute Nucleated RBC 0.000 Nucleated RBC % (auto) 0.0 Smear Tech's Comments VERIFIED Sodium 143 Potassium 4.5 Chloride 105 Carbon Dioxide 29 Anion Gap 14 BUN 70 H Creatinine 2.46 H Estim Creat Clear Calc 21.8 Estimated GFR 19 POC Glucose 220 H Fasting Glucose 226 H Calcium 8.1 L Magnesium 1.9 Blood Type Antibody Screen Crossmatch 05/20/20 07:22 WBC RBC Hgb Hct MCV MCH MCHC RDW Plt Count MPV Immature Gran % (Auto) Neut % (Auto) Lymph % (Auto) [place] % (Auto) Eos % (Auto) Baso % (Auto) Lymph # (Auto) [place] # (Auto) Eos # (Auto) Baso # (Auto) Abs Immat Gran (auto) Absolute Neuts (auto) Absolute Nucleated RBC Nucleated RBC % (auto) Smear Tech's Comments Sodium Potassium Chloride Carbon Dioxide Anion Gap BUN Creatinine Estim Creat Clear Calc Estimated GFR POC Glucose 198 H Fasting Glucose Calcium Magnesium Blood Type Antibody Screen Crossmatch Microbiology Microbiology Results: Microbiology 05/18/20 12:59 Lung - Right Gram Stain - Final 05/18/20 12:59 Lung - Right Routine Culture - Final No growth after 2 days 05/17/20 12:03 Blood - Venous Blood Culture - Preliminary No growth after 48 hours. 05/17/20 11:49 Blood - Venous Blood Culture - Preliminary No growth after 48 hours. Review of Systems Review of Systems Constitutional: Denies fever, denies Chills Eyes: denies blurry vision ENT: denies sore throat CVS: denies chest pain Respiratory: dyspnea GI: no abdominal pain : denies dysuria MSK: denies neck pain Skin: denies rash Neuro: denies specific motor weakness Psych: denies suicidal ideation Endocrine: denies heat/cold intoleratnce Hematologic: denies easy bleeding Allergy: denies hives Physical Exam Vital Signs: Vital Signs: Last Vital Signs Temp 97.5 F 05/20/20 07:39 Pulse 80 05/20/20 07:53 Resp 20 05/20/20 07:39 BP 141/58 H 05/20/20 07:39 Pulse Ox 99 05/20/20 07:39 Body Mass Index 34.4 Const: General: alert HENMT: General nose exam: Abnormal external nose present and Nasal discharge present Eyes: Pupils: Equal, round and reactive pupils present Neck: Neck: Yes normal visual inspection, Yes full ROM and Yes no lymphadenopathy Chest: Chest palpation & inspection: normal inspection of the chest Resp: Auscultation: diminished lung sounds Cardio: Rate: regular rate Rhythm: regular rhythm Heart sounds: S1 normal heart sound present and S2 normal heart sound present GI: Palpation (GI): Soft to palpation and nontender Auscultation: normal bowel sounds : General: Yes no CVA tenderness Back/Spine/Pelvis: Back: no CVA tenderness Skin: General skin exam: rashes and/or lesions noted Neuro: Cranial nerves: Yes Equal, round and reactive pupils present Assessment and Plan Assessment and plan (1) Pleural effusion: Status: Acute Assessment and Plan: Thoracentesis today. Likely parapneumonic (2) Aspiration pneumonia: Status: Acute Assessment and Plan: Deescalate antibiotics if continues to respond well to therapy by tomorrow (3) Chronic kidney disease (CKD): Status: Acute (4) Atelectasis of right lung: Problem details: Status post bronchoscopy with therapeutic cleaning Status: Acute Assessment and Plan: Continue incentive spirometer and CPT with flutter valve. Time Spent With Patient Time: Total time spent is greater than 50% in coordination of care (as documented) at patient's floor/unit and/or counseling patient: Time with patient: 15 - 24 minutes
--- NOTE | 2020-05-20 09:47 | HO.PM.IMPN ---
Subjective Subjective Date of Service: 05/20/20 Interval History: continues to improve Review of Systems Constitutional: Denies fever, denies Chills Eyes: denies blurry vision ENT: denies sore throat CVS: denies chest pain Respiratory: dyspnea GI: no abdominal pain : denies dysuria MSK: denies neck pain Skin: denies rash Neuro: denies specific motor weakness Psych: denies suicidal ideation Endocrine: denies heat/cold intoleratnce Hematologic: denies easy bleeding Allergy: denies hives Cardiovascular Cardiovascular: Reports no additional cardiovascular complaints Gastrointestinal Gastrointestinal: Reports no additional gastrointestinal complaints Physical Exam Vital Signs: Vital Signs: Last Vital Signs Temp 97.5 F 05/20/20 07:39 Pulse 80 05/20/20 07:53 Resp 20 05/20/20 07:39 BP 141/58 H 05/20/20 07:39 Pulse Ox 99 05/20/20 07:39 Body Mass Index 34.4 General: AO X 3, no acute distress Resp: diminished over right base CVS: S1,S2,RRR GI: soft, non tender, non distended Neuro: motor grossly intact Psych: appropriate affect Objective Data Current Medications Generic Name Dose Route Start Last Admin Trade Name Freq PRN Reason Stop Dose Admin Acetaminophen 650 mg 05/17/20 22:06 05/19/20 17:19 Acetaminophen 325 Mg Tablet PO 650 mg Q4H PRN Administration GENERAL DISCOMFORT Acetylcysteine 200 mg 05/19/20 12:00 05/20/20 05:10 Acetylcysteine 10 % 400 Mg/4 Ml Vial INHALE 200 mg RQ6H JASMINE Administration Albuterol/Ipratropium 3 ml 05/18/20 20:00 05/20/20 07:51 Albuterol/Iprat 2.5/0.5mg 3 Ml Ampul.Neb INHALE 3 ml RQ4H JASMINE Administration Amlodipine Besylate 10 mg 05/18/20 09:00 05/20/20 08:11 Amlodipine Besylate 10 Mg Tablet PO 10 mg DAILY JASMINE Administration Protocol Cyanocobalamin 1,000 mcg 05/18/20 09:00 05/20/20 08:11 Cyanocobalamin (Vitamin B-12) 1,000 Mcg Tablet PO 1,000 mcg DAILY JASMINE Administration Docusate Sodium 100 mg 05/18/20 09:00 05/20/20 08:11 Docusate Sodium 100 Mg Capsule PO 100 mg DAILY JASMINE Administration Fluticasone/Vilanterol 1 puff 05/19/20 08:00 05/20/20 08:16 Fluticasone/Vilanterol 100/25 Blst.W.Dev INHALE 1 puff DAILY@0800 JASMINE Administration Folic Acid 1 mg 05/18/20 09:00 05/20/20 08:13 Folic Acid 1 Mg Tablet PO 1 mg DAILY JASMINE Administration Furosemide 40 mg 05/18/20 09:00 05/20/20 08:11 Furosemide 40 Mg Tablet PO 40 mg DAILY JASMINE Administration Protocol Vancomycin HCl 1,000 mg/ 270 mls @ 270 mls/hr 05/19/20 15:00 05/19/20 19:11 Sodium Chloride IV Infused Q48H JASMINE Infusion Piperacillin Sod/Tazobactam 50 mls @ 100 mls/hr 05/17/20 23:00 05/20/20 06:53 Sod 2.25 gm/ Sodium Chloride IV Infused Q8H JASMINE Infusion Insulin Human Lispro 0 unit 05/17/20 22:06 05/20/20 08:13 Insulin Lispro 100 Unit/Ml 3 Ml Vial SUBCUT 2 unit QIDACHS [facility] Administration Protocol Loratadine 10 mg 05/18/20 09:00 05/20/20 08:11 Loratadine 10 Mg Tablet PO 10 mg DAILY JASMINE Administration Methylprednisolone Sodium Succinate 60 mg 05/17/20 22:06 05/20/20 08:13 Methylprednisolone Sod Succ/Pf 125 Mg/2 Ml Vial IVPUSH 60 mg BID JASMINE Administration Metoprolol Succinate 75 mg 05/18/20 09:00 05/20/20 08:13 Metoprolol Succinate Er 25 Mg Tab.Er.24h PO 75 mg DAILY JASMINE Administration Protocol Montelukast Sodium 10 mg 05/17/20 22:06 05/18/20 20:22 Montelukast Sodium 10 Mg Tablet PO 10 mg BEDTIME JASMINE Administration Omeprazole 20 mg 05/18/20 09:00 05/20/20 08:11 Omeprazole 20 Mg Capsule.Dr PO 20 mg DAILY JASMINE Administration Pharmacy Consult 1 each 05/17/20 11:19 Consult Rx Perform Med Rec MISCELLANE ONCE PRN Consult order Pharmacy Consult 1 each 05/17/20 14:40 Consult Rx Vancomycin Dosing MISCELLANE DAILY PRN Consult order Pharmacy Consult 1 each 05/18/20 17:35 Consult Rx Vancomycin Dosing MISCELLANE DAILY PRN Consult order Sodium Chloride 3 ml 05/18/20 00:00 05/20/20 08:14 0.9 % Sodium Chloride Flush 3 Ml Syringe IVFLUSH 3 ml QSHIFT JASMINE Administration Trazodone HCl 50 mg 05/17/20 22:06 05/18/20 22:37 Trazodone Hcl 50 Mg Tablet PO 50 mg BEDTIME PRN Administration Insomnia Vitamin D 50 mcg 05/18/20 09:00 05/20/20 08:10 Cholecalciferol (Vitamin D3) 25 Mcg Tablet PO 50 mcg DAILY JASMINE Administration Labs CBC & Chem 7: 05/20/20 06:05 05/20/20 06:05 Microbiology Microbiology Results: Microbiology 05/18/20 12:59 Lung - Right Gram Stain - Final 05/18/20 12:59 Lung - Right Routine Culture - Final No growth after 2 days 05/17/20 12:03 Blood - Venous Blood Culture - Preliminary No growth after 48 hours. 05/17/20 11:49 Blood - Venous Blood Culture - Preliminary No growth after 48 hours. Assessment and Plan (1) Acute on chronic respiratory failure with hypoxia and hypercapnia: Status: Acute (2) Chronic kidney disease (CKD): Status: Acute (3) COPD (chronic obstructive pulmonary disease): Status: Acute (4) Atelectasis of right lung: Problem details: Status post bronchoscopy with therapeutic cleaning Status: Acute (5) Aspiration pneumonia: Status: Acute (6) Atrial fibrillation with RVR: Problem details: not on AC due to hematoma march 2020 Status: Acute (7) Obstructive sleep apnea: Status: Acute Assessment and Plan: 70F presented with sob acute on chronic hypoxic and hypercapneic respiratory failure due to copd exacerbation, mucus plugging and possible bacterial pneumonia in setting of recent covid 19 infection steroids, bronchodilators, mucomyst nebs s/p bronchosacopy with clearance of mucus plug 05/18/20 and significant improvement in hypoxia, plan for thoracentesis for pleural effusion afib with rvr metoprolol not on anticoagulation due to development of rectus sheath and left pelvic sidewall hematoma with drop in hgb during hospitalization in 2019 at [facility] [place] anemia of inflammation s/p 1 unit on 05/19 improved appropriately chronic diastolic chf po lasix CKD IV stable, monitor DM insulin
[2020-05-20 11:21] LABS: Glucose, Whole Blood 312 mg/dL (60-115)
[2020-05-20] MEDS: Lidocaine HCl 1 % 20 ML VIAL 5 ML SUBCUT (16:13)
[2020-05-20 16:24] LABS: MN% 94.8 %; PMN% 5.2 %; WBC Pleural Fluid 0.185 X10*3/uL
[2020-05-20 16:26] LABS: RBC Pleural Fluid < 0.002 X10*3/uL
[2020-05-20 16:29] LABS: Glucose, Whole Blood 329 mg/dL (60-115)
[2020-05-20 16:39] LABS: BF Shift QC OK YES; Lymphocytes Pleural Fluid 60 %; Man Diluent Bkgrd OK YES; Monocytes Pleural Fluid 8 %; Neutrophils Pleural Fluid 10 %; Other Cells Plerual Fl 14 %
[2020-05-20] MEDS: Morphine Sulfate 2 MG/ML CARTRIDGE IVPUSH (17:09)
[2020-05-20 20:29] LABS: Glucose, Whole Blood 270 mg/dL (60-115)
[2020-05-20] MEDS: Morphine Sulfate 4 MG/ML CARTRIDGE IVPUSH (20:44)
[2020-05-20] MEDS: Montelukast Sodium 10 MG TABLET PO (20:46)
[2020-05-21] VITALS (13 sets, daily range): BP systolic 121–140; BP diastolic 58–63; PULSE 73–103; RESP 18–22; TEMP 36.5–36.6; O2SAT 94–97
[2020-05-21] MEDS: Acetylcysteine 10 % 400 MG/4 ML VIAL 200 MG INHALE ×3 (00:01→12:17)
[2020-05-21] MEDS: Albuterol/Iprat 2.5/0.5MG 3 ML AMPUL.NEB INHALE ×4 (00:01→12:18)
[2020-05-21] MEDS: Morphine Sulfate 2 MG/ML CARTRIDGE IVPUSH ×3 (00:36→13:18)
[2020-05-21] MEDS: Piperacillin Sodium/Tazobactam 2.25 GM in 0.9 % Sodium Chloride 50 ML IV (06:48)
[2020-05-21 07:09] LABS: Basophils Percent Auto 0.1 % (0-2); Hematocrit 28.8 % (37-47); Hemoglobin 8.7 g/dl (12.0-16.0); Imm Gran Abs Auto 0.18 X10*3/uL (0.00-0.03); Imm Gran Pct Auto 1.9 % (0.0-0.4); Lymphocytes Absolute Auto 0.3 X10*3/uL (1.2-4.9); Lymphocytes Percent Auto 3.6 % (20-40); MANUAL DIFF FLAG SCAN; Mean Corpuscular HGB Conc 30.2 g/dl (31.0-35.0); Mean Corpuscular Hemoglobin 30.1 pg (27.0-33.0); Mean Corpuscular Volume 99.7 fL (80-98); Mean Platelet Volume 10.1 fL (9.4-12.3); Monocytes Absolute Auto 0.3 X10*3/uL (0.1-1.2); Monocytes Percent Auto 3.1 % (2-11); Neutrophils Absolute Auto 8.5 X10*3/uL (2.0-8.3); Neutrophils Percent Auto 91.3 % (45-73); Platelet Count 233 X10*3/uL (160-400); Red Blood Count 2.89 X10*6/uL (4.20-5.50); Red Cell Distribution Width 17.2 % (11.0-16.0); SCAN SMEAR FLAG 1; White Blood Count 9.3 X10*3/uL (4.8-10.8)
[2020-05-21 07:40] LABS: Anion Gap 14 (12-20); Blood Urea Nitrogen 72 mg/dL (9-16); Carbon Dioxide 29 mmol/L (22-29); Chloride 101 mmol/L (96-108); Creatinine Clr Calc Pharmacy 20.4; Estimated Glomerular Filt Rate 18; Glucose Fasting 218 mg/dL (60-99); Sodium 139 mmol/L (135-145)
[2020-05-21 08:05] LABS: Glucose, Whole Blood 217 mg/dL (60-115)
[2020-05-21] MEDS: Insulin Lispro 100 UNIT/ML 3 ML VIAL SUBCUT ×2 (08:16→11:41)
[2020-05-21] MEDS: methylPREDNISolone Sod Succ/PF 125 MG/2 ML VIAL 60 MG IVPUSH (08:17)
[2020-05-21] MEDS: Loratadine 10 MG TABLET PO (08:17)
[2020-05-21] MEDS: Omeprazole 20 MG CAPSULE.DR PO (08:17)
[2020-05-21] MEDS: Cyanocobalamin (Vitamin B-12) 1,000 MCG TABLET 1000 MCG PO (08:17)
[2020-05-21] MEDS: Cholecalciferol (Vitamin D3) 25 MCG TABLET 50 MCG PO (08:17)
[2020-05-21] MEDS: Docusate Sodium 100 MG CAPSULE PO (08:17)
[2020-05-21] MEDS: Folic Acid 1 MG TABLET PO (08:17)
[2020-05-21] MEDS: amLODIPine Besylate 10 MG TABLET PO (08:18)
[2020-05-21] MEDS: Metoprolol Succinate ER 25 MG TAB.ER.24H 75 MG PO (08:20)
[2020-05-21] MEDS: Furosemide 40 MG TABLET PO (08:20)
[2020-05-21 08:41] LABS: LDH Pleural Fluid 74; Total Protein Pleural Fluid 2.5
[2020-05-21 08:44] LABS: Glucose Pleural Fluid 297
[2020-05-21 08:46] LABS: SLIDE REVIEW VERIFIED
--- NOTE | 2020-05-21 09:29 | P.PNPL_ITS ---
Subjective Subjective Date of Service: 05/21/20 Interval history: The patient was seen on exam. Status post thoracentesis. Did develop significant pain at the end of the drainage. This suggests some degree of trapped lung. The fluid appears to be consistent with a transudative process. She still having some discomfort on the right side. We will plan to repeat chest x-ray today. Ultimately she will go to [facility] and there is pulmonary available to follow-up there. Objective Data Labs CBC & Chem 7: 05/21/20 06:01 05/21/20 06:01 Labs: Laboratory Results - last 24 hr 05/20/20 05/20/20 05/20/20 11:18 15:30 15:30 WBC RBC Hgb Hct MCV MCH MCHC RDW Plt Count MPV Immature Gran % (Auto) Neut % (Auto) Lymph % (Auto) Dickinson % (Auto) Eos % (Auto) Baso % (Auto) Lymph # (Auto) Dickinson # (Auto) Eos # (Auto) Baso # (Auto) Abs Immat Gran (auto) Absolute Neuts (auto) Absolute Nucleated RBC Nucleated RBC % (auto) Smear Tech's Comments Sodium Potassium Chloride Carbon Dioxide Anion Gap BUN Creatinine Estim Creat Clear Calc Estimated GFR POC Glucose 312 H Fasting Glucose Calcium Pleural WBC 0.185 Pleural RBC < 0.002 Pleural Neutrophils 10 Pleural Lymphocytes 60 Pleural Monocytes 8 Pleural Other Cells 14 Pleural Total Protein 2.5 Pleural LDH 74 Pleural Glucose 297 05/20/20 05/20/20 05/21/20 16:26 20:26 06:01 WBC 9.3 RBC 2.89 L Hgb 8.7 L Hct 28.8 L MCV 99.7 H MCH 30.1 MCHC 30.2 L RDW 17.2 H Plt Count 233 MPV 10.1 Immature Gran % (Auto) 1.9 H Neut % (Auto) 91.3 H Lymph % (Auto) 3.6 L Dickinson % (Auto) 3.1 Eos % (Auto) 0.0 Baso % (Auto) 0.1 Lymph # (Auto) 0.3 L Dickinson # (Auto) 0.3 Eos # (Auto) 0.0 Baso # (Auto) 0.0 Abs Immat Gran (auto) 0.18 H Absolute Neuts (auto) 8.5 H Absolute Nucleated RBC 0.000 Nucleated RBC % (auto) 0.0 Smear Tech's Comments VERIFIED Sodium Potassium Chloride Carbon Dioxide Anion Gap BUN Creatinine Estim Creat Clear Calc Estimated GFR POC Glucose 329 H 270 H Fasting Glucose Calcium Pleural WBC Pleural RBC Pleural Neutrophils Pleural Lymphocytes Pleural Monocytes Pleural Other Cells Pleural Total Protein Pleural LDH Pleural Glucose 05/21/20 05/21/20 06:01 07:52 WBC RBC Hgb Hct MCV MCH MCHC RDW Plt Count MPV Immature Gran % (Auto) Neut % (Auto) Lymph % (Auto) Dickinson % (Auto) Eos % (Auto) Baso % (Auto) Lymph # (Auto) Dickinson # (Auto) Eos # (Auto) Baso # (Auto) Abs Immat Gran (auto) Absolute Neuts (auto) Absolute Nucleated RBC Nucleated RBC % (auto) Smear Tech's Comments Sodium 139 Potassium 5.0 Chloride 101 Carbon Dioxide 29 Anion Gap 14 BUN 72 H Creatinine 2.63 H Estim Creat Clear Calc 20.4 Estimated GFR 18 POC Glucose 217 H Fasting Glucose 218 H Calcium 8.0 L Pleural WBC Pleural RBC Pleural Neutrophils Pleural Lymphocytes Pleural Monocytes Pleural Other Cells Pleural Total Protein Pleural LDH Pleural Glucose Microbiology Microbiology Results: Microbiology 05/18/20 12:59 Lung - Right Gram Stain - Final 05/18/20 12:59 Lung - Right Routine Culture - Final No growth after 2 days 05/17/20 12:03 Blood - Venous Blood Culture - Preliminary No growth after 48 hours. 05/17/20 11:49 Blood - Venous Blood Culture - Preliminary No growth after 48 hours. Review of Systems Constitutional: Denies night sweats Denies change in voice, Denies lip swelling, Denies mouth pain, Reports nasal congestion, Reports nasal discharge and Denies tongue swelling Cardiovascular: Reports chest pain Respiratory: Reports cough, Reports pain on inspiration and Reports pain with cough Gastrointestinal: Denies abdominal pain Musculoskeletal: Denies no additional musculoskeletal complaints Denies Neuro-related abnormal movements Psychiatric: Denies no additional psychiatric complaints Hematologic/Lymphatic: Denies easy bleeding and Denies lymphadenopathy Allergic/Immunologic: Denies lip swelling and Denies tongue swelling Physical Exam Vital Signs: Vital Signs: Last Vital Signs Temp 97.9 F 05/21/20 08:00 Pulse 80 05/21/20 08:20 Resp 22 H 05/21/20 08:00 BP 121/58 L 05/21/20 08:20 Pulse Ox 97 05/21/20 08:00 Body Mass Index 34.4 Const: General: alert Eyes: Pupils: Equal, round and reactive pupils present Neck: Neck: Yes normal visual inspection, Yes full ROM and Yes no lymphadenopathy Chest: Chest palpation & inspection: normal inspection of the chest Resp: Auscultation: diminished lung sounds Cardio: Rate: regular rate Rhythm: regular rhythm Heart sounds: S1 normal heart sound present and S2 normal heart sound present GI: Palpation (GI): Soft to palpation and nontender Auscultation: normal bowel sounds : General: Yes no CVA tenderness Back/Spine/Pelvis: Back: no CVA tenderness Skin: General skin exam: rashes and/or lesions noted Neuro: Cranial nerves: Yes Equal, round and reactive pupils present Assessment and Plan Assessment and plan (1) Pleural effusion: Problem details: Transudative. The lung did not want to expand ?trapped. But clinically doing well Status: Acute Assessment and Plan: Repeat CXR No need for surgery, but she does need to f/u with Pulmonary. Ale[facility] has pulmonary followup which will be good. (2) Atelectasis of right lung: Problem details: Status post bronchoscopy with therapeutic cleaning Status: Acute Assessment and Plan: OOB ISS CPT with flutter valve (3) COPD (chronic obstructive pulmonary disease): Status: Acute Assessment and Plan: Continue respiratory therapy Time Spent With Patient Time: Total time spent is greater than 50% in coordination of care (as do cumented) at patient's floor/unit and/or counseling patient: Time with patient: 15 - 24 minutes
--- NOTE | 2020-05-21 09:29 | XR_ITS ---
EXAMINATION: XR CHEST CLINICAL INFORMATION: Status post right thoracentesis. Follow-up chest x-ray. COMPARISON: Chest 05/06/[address] chest 05/17/2020. TECHNIQUE: 2 views of the chest were obtained. FINDINGS: There is a triangular lucency seen in the right lower lobe likely focal air collection within the loculated pleural space. There is blunting of bilateral CP angle likely from residual pleural effusion on the right and small left pleural effusion on left as was noted on the previous CT chest exam. There is no visible pneumothorax in the upper hemithorax on this upright view. There is however loss of right lung volume with ipsilateral mediastinal shift. The left lung remains clear. Heart size is normal. XR/XR chest 2V IMPRESSION: Triangular lucency in the right midlung question small trapped air in the loculated effusion or artifact. Haziness in both lower lobes likely pleural effusion. Mild cardiomegaly. No major change from the last exam 05/20/2020 at 3:50 PM.
--- NOTE | 2020-05-21 11:00 | P.DS_ITS ---
DS: Providers Provider Date of Service: 05/21/20 Date of admission: 05/17/20 17:35 Primary care physician: Gin Oakley MD Consults: 05/17/20 22:06 Consult to Pulmonology Routine Consulting Provider: Dominic Love Reason for consultation: hypoxia DS: Diagnosis Discharge Diagnosis (1) Pleural effusion: Status: Acute Problem details: Transudative. The lung did not want to expand ?trapped. But clinically doing well (2) Atelectasis of right lung: Status: Acute Problem details: Status post bronchoscopy with therapeutic cleaning (3) COPD (chronic obstructive pulmonary disease): Status: Acute (4) Aspiration pneumonia: Status: Acute (5) Acute on chronic respiratory failure with hypoxia and hypercapnia: Status: Acute DS: Medications Discharge Medications Home Medications: Home Medications Medication Instructions Recorded Confirmed Spiriva with HandiHaler 1 cap INHALATION DAILY 05/06/20 05/17/20 furosemide 40 mg PO DAILY 05/06/20 05/17/20 insulin aspart U-100 [Novolog 0 unit SUBCUT TID 05/06/20 05/17/20 Flexpen U-100 Insulin] montelukast 10 mg PO BEDTIME 05/06/20 05/17/20 omeprazole 20 mg PO DAILY 05/06/20 05/17/20 Retacrit 10,000 unit SUBCUT WE@1000 05/17/20 05/17/20 acetaminophen 650 mg PO Q4H PRN 05/17/20 05/17/20 cholecalciferol (vitamin D3) 50 mcg PO DAILY 05/17/20 05/17/20 [Vitamin D3] cyanocobalamin (vitamin B-12) 1,000 mcg PO DAILY 05/17/20 05/17/20 docusate sodium 100 mg PO DAILY 05/17/20 05/17/20 fluticasone propion-salmeterol 1 inh INHALATION BID 05/17/20 05/17/20 [Advair Diskus] folic acid 1 mg PO DAILY 05/17/20 05/17/20 geriatric luuojnun-mked-jzzl 1 tab PO DAILY 05/17/20 05/17/20 loratadine 10 mg PO DAILY 05/17/20 05/17/20 metoprolol succinate 75 mg PO DAILY 05/17/20 05/17/20 nystatin 1 appl TOPICAL BID 05/17/20 05/17/20 trazodone 50 mg PO BEDTIME PRN 05/17/20 05/17/20 Previous Rx's Medication Instructions Recorded amlodipine 10 mg PO DAILY #1 tab 05/10/20 amoxicillin-pot clavulanate 1 tab PO BID 14 Days #0 tab 05/21/20 [Augmentin] oxycodone 5 mg PO Q6H PRN #10 tab 05/21/20 prednisone 40 mg PO DAILY 5 Days #10 tab 05/21/20 DS: Summary Hospital Course Hospital Course: Patient was admitted for acute on chronic hypoxic and hypercapnic respiratory failure secondary to mucus plug in the setting of recent COVID-19 infection. Complicated by right-sided atelectasis and pleural effusion. Patient underwent bronchoscopy with washout, cultures were negative, patient had decent re- expansion of lung and hypoxia return to better than baseline. Patient then un derwent thoracentesis with drainage of 750 cc of transudative fluid. She was treated with broad-spectrum IV antibiotics and will be narrowed to p.o. Augmentin for 14 days. She was also given IV steroids, will continue with short course of p.o. prednisone. She will follow up with Pulmonary as outpatient. Should continue chest physiotherapy. She will be discharged to snf facility. Time Spent with Patient Time attestation: Total time spent providing and/or coordinating discharge services: Discharge coordination time: Greater than 30 minutes Physical Exam Vital Signs: Vital Signs: Last Vital Signs Temp 97.9 F 05/21/20 08:00 Pulse 80 05/21/20 08:20 Resp 22 H 05/21/20 08:00 BP 121/58 L 05/21/20 08:20 Pulse Ox 97 05/21/20 08:00 Body Mass Index 34.4 General: AO X 3, no acute distress Resp: diminished on right CVS: S1,S2,RRR GI: soft, non tender, non distended Neuro: motor grossly intact Psych: appropriate affect DS: Data Data Completed and Pending Completed studies during hospitalization [Text1]: Pending at discharge 05/18/20 13:20 Cytology [PTH] Routine Procedures Drainage of Right Lung, Via Natural or Artificial Opening Endoscopic (05/06/20) Insertion of Endotracheal Airway into Trachea, Via Natural or Artificial Opening (05/06/20) Respiratory Ventilation, Less than 24 Consecutive Hours (05/06/20) Labs on day of discharge: Laboratory Tests 05/17/20 05/17/20 05/17/20 11:42 11:49 11:49 WBC RBC Hgb Hct MCV MCH MCHC RDW Plt Count MPV Immature Gran % (Auto) Neut % (Auto) Lymph % (Auto) [place] % (Auto) Eos % (Auto) Baso % (Auto) Lymph # (Auto) [place] # (Auto) Eos # (Auto) Baso # (Auto) Abs Immat Gran (auto) Absolute Neuts (auto) Absolute Nucleated RBC Nucleated RBC % (auto) Smear Tech's Comments PT 12.6 INR 1.1 APTT 33.2 ABG pH 7.34 L ABG pCO2 62 H* ABG pO2 50 L* ABG HCO3 34 H ABG O2 Saturation 84.0 ABG Base Excess 7.9 VBG pH VBG pCO2 VBG pO2 VBG HCO3 VBG O2 Saturation VBG Base Excess Oxygen Given 5 L Sodium Potassium Chloride Carbon Dioxide Anion Gap BUN Creatinine Estim Creat Clear Calc Estimated GFR POC Glucose Random Glucose Fasting Glucose Lactic Acid 0.7 Calcium Magnesium Total Bilirubin Direct Bilirubin AST ALT Alkaline Phosphatase Troponin I High Sens B-Natriuretic Peptide Total Protein Albumin Lipase Pleural WBC Pleural RBC Pleural Neutrophils Pleural Lymphocytes Pleural Monocytes Pleural Other Cells Pleural Total Protein Pleural LDH Pleural Glucose Random Vancomycin COVID-19 (YESSENIA) COVID-19 Clin Com Blood Type Antibody Screen Crossmatch 05/17/20 05/17/20 05/17/20 11:49 11:49 11:50 WBC 9.5 RBC 2.69 L Hgb 8.1 L Hct 27.9 L MCV 103.7 H MCH 30.1 MCHC 29.0 L RDW 18.4 H Plt Count 158 L MPV 10.7 Immature Gran % (Auto) 1.4 H Neut % (Auto) 83.2 H Lymph % (Auto) 7.5 L [place] % (Auto) 5.8 Eos % (Auto) 1.8 Baso % (Auto) 0.3 Lymph # (Auto) 0.7 L [place] # (Auto) 0.6 Eos # (Auto) 0.2 Baso # (Auto) 0.0 Abs Immat Gran (auto) 0.13 H Absolute Neuts (auto) 7.9 Absolute Nucleated RBC 0.000 Nucleated RBC % (auto) 0.0 Smear Tech's Comments PT INR APTT ABG pH ABG pCO2 ABG pO2 ABG HCO3 ABG O2 Saturation ABG Base Excess VBG pH VBG pCO2 VBG pO2 VBG HCO3 VBG O2 Saturation VBG Base Excess Oxygen Given Sodium Potassium Chloride Carbon Dioxide Anion Gap BUN Creatinine Estim Creat Clear Calc Estimated GFR POC Glucose Random Glucose Fasting Glucose Lactic Acid Calcium Magnesium Total Bilirubin Direct Bilirubin AST ALT Alkaline Phosphatase Troponin I High Sens 4.3 B-Natriuretic Peptide Total Protein Albumin Lipase 20 Pleural WBC Pleural RBC Pleural Neutrophils Pleural Lymphocytes Pleural Monocytes Pleural Other Cells Pleural Total Protein Pleural LDH Pleural Glucose Random Vancomycin COVID-19 (YESSENIA) COVID-19 Clin Com Blood Type Antibody Screen Crossmatch 05/17/20 05/17/20 05/17/20 11:50 11:50 12:31 WBC RBC Hgb Hct MCV MCH MCHC RDW Plt Count MPV Immature Gran % (Auto) Neut % (Auto) Lymph % (Auto) [place] % (Auto) Eos % (Auto) Baso % (Auto) Lymph # (Auto) [place] # (Auto) Eos # (Auto) Baso # (Auto) Abs Immat Gran (auto) Absolute Neuts (auto) Absolute Nucleated RBC Nucleated RBC % (auto) Smear Tech's Comments PT INR APTT ABG pH ABG pCO2 ABG pO2 ABG HCO3 ABG O2 Saturation ABG Base Excess VBG pH VBG pCO2 VBG pO2 VBG HCO3 VBG O2 Saturation VBG Base Excess Oxygen Given Sodium 144 Potassium 4.2 Chloride 103 Carbon Dioxide 31 H Anion Gap 14 BUN 50 H Creatinine 2.94 H Estim Creat Clear Calc 18.3 Estimated GFR 16 POC Glucose Random Glucose 201 H D Fasting Glucose Lactic Acid Calcium 8.5 Magnesium 1.8 Total Bilirubin 0.3 Direct Bilirubin 0.2 AST 6 D ALT 8 Alkaline Phosphatase 65 Troponin I High Sens B-Natriuretic Peptide 171 H Total Protein 6.4 L Albumin 3.0 L Lipase Pleural WBC Pleural RBC Pleural Neutrophils Pleural Lymphocytes Pleural Monocytes Pleural Other Cells Pleural Total Protein Pleural LDH Pleural Glucose Random Vancomycin COVID-19 (YESSENIA) Negative COVID-19 Clin Com See Note Blood Type Antibody Screen Crossmatch 05/17/20 05/17/20 05/17/20 14:34 15:12 22:44 WBC RBC Hgb Hct MCV MCH MCHC RDW Plt Count MPV Immature Gran % (Auto) Neut % (Auto) Lymph % (Auto) [place] % (Auto) Eos % (Auto) Baso % (Auto) Lymph # (Auto) [place] # (Auto) Eos # (Auto) Baso # (Auto) Abs Immat Gran (auto) Absolute Neuts (auto) Absolute Nucleated RBC Nucleated RBC % (auto) Smear Tech's Comments PT INR APTT ABG pH 7.32 L ABG pCO2 61 H* ABG pO2 77 L ABG HCO3 32 H ABG O2 Saturation 95.0 ABG Base Excess 5.8 VBG pH 7.21 L VBG pCO2 89 VBG pO2 35 VBG HCO3 36 VBG O2 Saturation 54.0 VBG Base Excess 7.0 Oxygen Given 5 L Sodium Potassium Chloride Carbon Dioxide Anion Gap BUN Creatinine Estim Creat Clear Calc Estimated GFR POC Glucose 158 H Random Glucose Fasting Glucose Lactic Acid Calcium Magnesium Total Bilirubin Direct Bilirubin AST ALT Alkaline Phosphatase Troponin I High Sens B-Natriuretic Peptide Total Protein Albumin Lipase Pleural WBC Pleural RBC Pleural Neutrophils Pleural Lymphocytes Pleural Monocytes Pleural Other Cells Pleural Total Protein Pleural LDH Pleural Glucose Random Vancomycin COVID-19 (YESSENIA) COVID-19 Clin Com Blood Type Antibody Screen Crossmatch 05/18/20 05/18/20 05/18/20 05:35 05:35 07:18 WBC 6.3 RBC 2.50 L Hgb 7.6 L Hct 24.9 L MCV 99.6 H MCH 30.4 MCHC 30.5 L RDW 17.8 H Plt Count 197 MPV 10.5 Immature Gran % (Auto) 1.9 H Neut % (Auto) 91.0 H Lymph % (Auto) 5.8 L [place] % (Auto) 1.1 L Eos % (Auto) 0.0 Baso % (Auto) 0.2 Lymph # (Auto) 0.4 L [place] # (Auto) 0.1 Eos # (Auto) 0.0 Baso # (Auto) 0.0 Abs Immat Gran (auto) 0.12 H Absolute Neuts (auto) 5.8 Absolute Nucleated RBC 0.000 Nucleated RBC % (auto) 0.0 Smear Tech's Comments VERIFIED PT INR APTT ABG pH ABG pCO2 ABG pO2 ABG HCO3 ABG O2 Saturation ABG Base Excess VBG pH VBG pCO2 VBG pO2 VBG HCO3 VBG O2 Saturation VBG Base Excess Oxygen Given Sodium 143 Potassium 4.9 Chloride 104 Carbon Dioxide 27 Anion Gap 17 BUN 55 H Creatinine 2.85 H Estim Creat Clear Calc 18.9 Estimated GFR 16 POC Glucose 166 H Random Glucose 170 H Fasting Glucose Lactic Acid Calcium 8.2 L Magnesium Total Bilirubin Direct Bilirubin AST ALT Alkaline Phosphatase Troponin I High Sens B-Natriuretic Peptide Total Protein Albumin Lipase Pleural WBC Pleural RBC Pleural Neutrophils Pleural Lymphocytes Pleural Monocytes Pleural Other Cells Pleural Total Protein Pleural LDH Pleural Glucose Random Vancomycin COVID-19 (YESSENIA) COVID-19 [facility] Com Blood Type Antibody Screen Crossmatch 05/18/20 05/18/20 05/18/20 11:19 15:11 16:17 WBC RBC Hgb Hct MCV MCH MCHC RDW Plt Count MPV Immature Gran % (Auto) Neut % (Auto) Lymph % (Auto) [place] % (Auto) Eos % (Auto) Baso % (Auto) Lymph # (Auto) [place] # (Auto) Eos # (Auto) Baso # (Auto) Abs Immat Gran (auto) Absolute Neuts (auto) Absolute Nucleated RBC Nucleated RBC % (auto) Smear Tech's Comments PT INR APTT ABG pH ABG pCO2 ABG pO2 ABG HCO3 ABG O2 Saturation ABG Base Excess VBG pH VBG pCO2 VBG pO2 VBG HCO3 VBG O2 Saturation VBG Base Excess Oxygen Given Sodium Potassium Chloride Carbon Dioxide Anion Gap BUN Creatinine Estim Creat Clear Calc Estimated GFR POC Glucose 162 H 164 H Random Glucose Fasting Glucose Lactic Acid Calcium Magnesium Total Bilirubin Direct Bilirubin AST ALT Alkaline Phosphatase Troponin I High Sens B-Natriuretic Peptide Total Protein Albumin Lipase Pleural WBC Pleural RBC Pleural Neutrophils Pleural Lymphocytes Pleural Monocytes Pleural Other Cells Pleural Total Protein Pleural LDH Pleural Glucose Random Vancomycin 10.6 L COVID-19 (YESSENIA) COVID-19 [facility] Blood Type Antibody Screen Crossmatch 05/18/20 05/19/20 05/19/20 20:04 05:52 05:53 WBC 7.6 RBC 2.29 L Hgb 6.8 L* Hct 22.7 L MCV 99.1 H MCH 29.7 MCHC 30.0 L RDW 17.7 H Plt Count 219 MPV 10.6 Immature Gran % (Auto) 0.9 H Neut % (Auto) 92.0 H Lymph % (Auto) 4.2 L [place] % (Auto) 2.8 Eos % (Auto) 0.0 Baso % (Auto) 0.1 Lymph # (Auto) 0.3 L [place] # (Auto) 0.2 Eos # (Auto) 0.0 Baso # (Auto) 0.0 Abs Immat Gran (auto) 0.07 H Absolute Neuts (auto) 7.0 Absolute Nucleated RBC 0.000 Nucleated RBC % (auto) 0.0 Smear Tech's Comments VERIFIED PT INR APTT ABG pH ABG pCO2 ABG pO2 ABG HCO3 ABG O2 Saturation ABG Base Excess VBG pH VBG pCO2 VBG pO2 VBG HCO3 VBG O2 Saturation VBG Base Excess Oxygen Given Sodium 142 Potassium 4.5 Chloride 104 Carbon Dioxide 31 H Anion Gap 12 BUN 65 H Creatinine 2.51 H Estim Creat Clear Calc 21.4 Estimated GFR 19 POC Glucose 209 H Random Glucose Fasting Glucose 195 H Lactic Acid Calcium 8.3 L Magnesium Total Bilirubin Direct Bilirubin AST ALT Alkaline Phosphatase Troponin I High Sens B-Natriuretic Peptide Total Protein Albumin Lipase Pleural WBC Pleural RBC Pleural Neutrophils Pleural Lymphocytes Pleural Monocytes Pleural Other Cells Pleural Total Protein Pleural LDH Pleural Glucose Random Vancomycin COVID-19 (YESSENIA) COVID-19 Clin Com Blood Type Antibody Screen Crossmatch 05/19/20 05/19/20 05/19/20 07:16 09:07 11:14 WBC RBC Hgb Hct MCV MCH MCHC RDW Plt Count MPV Immature Gran % (Auto) Neut % (Auto) Lymph % (Auto) [place] % (Auto) Eos % (Auto) Baso % (Auto) Lymph # (Auto) [place] # (Auto) Eos # (Auto) Baso # (Auto) Abs Immat Gran (auto) Absolute Neuts (auto) Absolute Nucleated RBC Nucleated RBC % (auto) Smear Tech's Comments PT INR APTT ABG pH ABG pCO2 ABG pO2 ABG HCO3 ABG O2 Saturation ABG Base Excess VBG pH VBG pCO2 VBG pO2 VBG HCO3 VBG O2 Saturation VBG Base Excess Oxygen Given Sodium Potassium Chloride Carbon Dioxide Anion Gap BUN Creatinine Estim Creat Clear Calc Estimated GFR POC Glucose 176 H 345 H Random Glucose Fasting Glucose Lactic Acid Calcium Magnesium Total Bilirubin Direct Bilirubin AST ALT Alkaline Phosphatase Troponin I High Sens B-Natriuretic Peptide Total Protein Albumin Lipase Pleural WBC Pleural RBC Pleural Neutrophils Pleural Lymphocytes Pleural Monocytes Pleural Other Cells Pleural Total Protein Pleural LDH Pleural Glucose Random Vancomycin COVID-19 (YESSENIA) COVID-19 Clin Com Blood Type O Positive Antibody Screen NEGATIVE Crossmatch See Detail 05/19/20 05/19/20 05/20/20 16:03 20:20 06:05 WBC 6.4 RBC 2.72 L Hgb 8.2 L D Hct 26.6 L MCV 97.8 MCH 30.1 MCHC 30.8 L RDW 17.2 H Plt Count 197 MPV 10.4 Immature Gran % (Auto) 1.4 H Neut % (Auto) 91.8 H Lymph % (Auto) 4.5 L [place] % (Auto) 2.3 Eos % (Auto) 0.0 Baso % (Auto) 0.0 Lymph # (Auto) 0.3 L [place] # (Auto) 0.2 Eos # (Auto) 0.0 Baso # (Auto) 0.0 Abs Immat Gran (auto) 0.09 H Absolute Neuts (auto) 5.9 Absolute Nucleated RBC 0.000 Nucleated RBC % (auto) 0.0 Smear Tech's Comments VERIFIED PT INR APTT ABG pH ABG pCO2 ABG pO2 ABG HCO3 ABG O2 Saturation ABG Base Excess VBG pH VBG pCO2 VBG pO2 VBG HCO3 VBG O2 Saturation VBG Base Excess Oxygen Given Sodium Potassium Chloride Carbon Dioxide Anion Gap BUN Creatinine Estim Creat Clear Calc Estimated GFR POC Glucose 201 H 220 H Random Glucose Fasting Glucose Lactic Acid Calcium Magnesium Total Bilirubin Direct Bilirubin AST ALT Alkaline Phosphatase Troponin I High Sens B-Natriuretic Peptide Total Protein Albumin Lipase Pleural WBC Pleural RBC Pleural Neutrophils Pleural Lymphocytes Pleural Monocytes Pleural Other Cells Pleural Total Protein Pleural LDH Pleural Glucose Random Vancomycin COVID-19 (YESSENIA) COVID-19 Clin Com Blood Type Antibody Screen Crossmatch 05/20/20 05/20/20 05/20/20 06:05 07:22 11:18 WBC RBC Hgb Hct MCV MCH MCHC RDW Plt Count MPV Immature Gran % (Auto) Neut % (Auto) Lymph % (Auto) [place] % (Auto) Eos % (Auto) Baso % (Auto) Lymph # (Auto) [place] # (Auto) Eos # (Auto) Baso # (Auto) Abs Immat Gran (auto) Absolute Neuts (auto) Absolute Nucleated RBC Nucleated RBC % (auto) Smear Tech's Comments PT INR APTT ABG pH ABG pCO2 ABG pO2 ABG HCO3 ABG O2 Saturation ABG Base Excess VBG pH VBG pCO2 VBG pO2 VBG HCO3 VBG O2 Saturation VBG Base Excess Oxygen Given Sodium 143 Potassium 4.5 Chloride 105 Carbon Dioxide 29 Anion Gap 14 BUN 70 H Creatinine 2.46 H Estim Creat Clear Calc 21.8 Estimated GFR 19 POC Glucose 198 H 312 H Random Glucose Fasting Glucose 226 H Lactic Acid Calcium 8.1 L Magnesium 1.9 Total Bilirubin Direct Bilirubin AST ALT Alkaline Phosphatase Troponin I High Sens B-Natriuretic Peptide Total Protein Albumin Lipase Pleural WBC Pleural RBC Pleural Neutrophils Pleural Lymphocytes Pleural Monocytes Pleural Other Cells Pleural Total Protein Pleural LDH Pleural Glucose Random Vancomycin COVID-19 (YESSENIA) COVID-19 [facility] Blood Type Antibody Screen Crossmatch 05/20/20 05/20/20 05/20/20 15:30 15:30 16:26 WBC RBC Hgb Hct MCV MCH MCHC RDW Plt Count MPV Immature Gran % (Auto) Neut % (Auto) Lymph % (Auto) [place] % (Auto) Eos % (Auto) Baso % (Auto) Lymph # (Auto) [place] # (Auto) Eos # (Auto) Baso # (Auto) Abs Immat Gran (auto) Absolute Neuts (auto) Absolute Nucleated RBC Nucleated RBC % (auto) Smear Tech's Comments PT INR APTT ABG pH ABG pCO2 ABG pO2 ABG HCO3 ABG O2 Saturation ABG Base Excess VBG pH VBG pCO2 VBG pO2 VBG HCO3 VBG O2 Saturation VBG Base Excess Oxygen Given Sodium Potassium Chloride Carbon Dioxide Anion Gap BUN Creatinine Estim Creat Clear Calc Estimated GFR POC Glucose 329 H Random Glucose Fasting Glucose Lactic Acid Calcium Magnesium Total Bilirubin Direct Bilirubin AST ALT Alkaline Phosphatase Troponin I High Sens B-Natriuretic Peptide Total Protein Albumin Lipase Pleural WBC 0.185 Pleural RBC < 0.002 Pleural Neutrophils 10 Pleural Lymphocytes 60 Pleural Monocytes 8 Pleural Other Cells 14 Pleural Total Protein 2.5 Pleural LDH 74 Pleural Glucose 297 Random Vancomycin COVID-19 (YESSENIA) COVID-19 [facility] Blood Type Antibody Screen Crossmatch 05/20/20 05/21/20 05/21/20 20:26 06:01 06:01 WBC 9.3 RBC 2.89 L Hgb 8.7 L Hct 28.8 L MCV 99.7 H MCH 30.1 MCHC 30.2 L RDW 17.2 H Plt Count 233 MPV 10.1 Immature Gran % (Auto) 1.9 H Neut % (Auto) 91.3 H Lymph % (Auto) 3.6 L [place] % (Auto) 3.1 Eos % (Auto) 0.0 Baso % (Auto) 0.1 Lymph # (Auto) 0.3 L [place] # (Auto) 0.3 Eos # (Auto) 0.0 Baso # (Auto) 0.0 Abs Immat Gran (auto) 0.18 H Absolute Neuts (auto) 8.5 H Absolute Nucleated RBC 0.000 Nucleated RBC % (auto) 0.0 Smear Tech's Comments VERIFIED PT INR APTT ABG pH ABG pCO2 ABG pO2 ABG HCO3 ABG O2 Saturation ABG Base Excess VBG pH VBG pCO2 VBG pO2 VBG HCO3 VBG O2 Saturation VBG Base Excess Oxygen Given Sodium 139 Potassium 5.0 Chloride 101 Carbon Dioxide 29 Anion Gap 14 BUN 72 H Creatinine 2.63 H Estim Creat Clear Calc 20.4 Estimated GFR 18 POC Glucose 270 H Random Glucose Fasting Glucose 218 H Lactic Acid Calcium 8.0 L Magnesium Total Bilirubin Direct Bilirubin AST ALT Alkaline Phosphatase Troponin I High Sens B-Natriuretic Peptide Total Protein Albumin Lipase Pleural WBC Pleural RBC Pleural Neutrophils Pleural Lymphocytes Pleural Monocytes Pleural Other Cells Pleural Total Protein Pleural LDH Pleural Glucose Random Vancomycin COVID-19 (YESSENIA) COVID-[employer] Blood Type Antibody Screen Crossmatch 05/21/20 07:52 WBC RBC Hgb Hct MCV MCH MCHC RDW Plt Count MPV Immature Gran % (Auto) Neut % (Auto) Lymph % (Auto) [place] % (Auto) Eos % (Auto) Baso % (Auto) Lymph # (Auto) [place] # (Auto) Eos # (Auto) Baso # (Auto) Abs Immat Gran (auto) Absolute Neuts (auto) Absolute Nucleated RBC Nucleated RBC % (auto) Smear Tech's Comments PT INR APTT ABG pH ABG pCO2 ABG pO2 ABG HCO3 ABG O2 Saturation ABG Base Excess VBG pH VBG pCO2 VBG pO2 VBG HCO3 VBG O2 Saturation VBG Base Excess Oxygen Given Sodium Potassium Chloride Carbon Dioxide Anion Gap BUN Creatinine Estim Creat Clear Calc Estimated GFR POC Glucose 217 H Random Glucose Fasting Glucose Lactic Acid Calcium Magnesium Total Bilirubin Direct Bilirubin AST ALT Alkaline Phosphatase Troponin I High Sens B-Natriuretic Peptide Total Protein Albumin Lipase Pleural WBC Pleural RBC Pleural Neutrophils Pleural Lymphocytes Pleural Monocytes Pleural Other Cells Pleural Total Protein Pleural LDH Pleural Glucose Random Vancomycin COVID-19 (YESSENIA) COVID-[employer] Com Blood Type Antibody Screen Crossmatch Preliminary micro results at discharge 05/17/20 12:03 Blood Culture - Preliminary Blood - Venous No growth after 48 hours. 05/17/20 11:49 Blood Culture - Preliminary Blood - Venous No growth after 48 hours. Discharge Plan Discharge Patient Disposition: er [facility] Referrals: Gin Oakley MD [Primary Care Provider] - Discharge Medications: New prednisone 20 mg tablet 40 mg PO DAILY 5 Days Qty: 10 RF: 0 oxycodone 5 mg tablet 5 mg PO Q6H PRN (Reason: pain) Qty: 10 RF: 0 Continued furosemide 40 mg Tablet 40 mg PO DAILY RF: 0 omeprazole 20 mg Capsule,Delayed Release(Dr/Ec) 20 mg PO DAILY RF: 0 montelukast 10 mg Tablet 10 mg PO BEDTIME RF: 0 insulin aspart U-100 [Novolog Flexpen U-100 Insulin] 100 unit/mL (3 mL) Insulin Pen 0 unit SUBCUT TID RF: 0 Spiriva with HandiHaler 18 mcg Capsule, W/Inhalation Device 1 cap INHALATION DAILY RF: 0 amlodipine 10 mg Tablet 10 mg PO DAILY Qty: 1 RF: 0 acetaminophen 325 mg Tablet 650 mg PO Q4H PRN (Reason: GENERAL DISCOMFORT) RF: 0 metoprolol succinate 25 mg Tablet Extended Release 24 Hr 75 mg PO DAILY RF: 0 Retacrit 10,000 unit/mL Solution 10,000 unit SUBCUT WE@1000 RF: 0 trazodone 50 mg Tablet 50 mg PO BEDTIME PRN (Reason: Insomnia) RF: 0 loratadine 10 mg Tablet 10 mg PO DAILY RF: 0 cyanocobalamin (vitamin B-12) 1,000 mcg Tablet 1,000 mcg PO DAILY RF: 0 fluticasone propion-salmeterol [Advair Diskus] 250-50 mcg/dose Blister With Device 1 inh INHALATION BID RF: 0 cholecalciferol (vitamin D3) [Vitamin D3] 25 mcg (1,000 unit) Tablet 50 mcg PO DAILY RF: 0 folic acid 1 mg Tablet 1 mg PO DAILY RF: 0 geriatric adkcbjon-dlax-vlfh Tablet 1 tab PO DAILY RF: 0 docusate sodium 100 mg Capsule 100 mg PO DAILY RF: 0 nystatin 100,000 unit/gram Cream 1 appl TOPICAL BID RF: 0 amoxicillin-pot clavulanate [Augmentin] 500-125 mg Tablet 1 tab PO BID 14 Days Qty: 0 RF: 0 Discharge Orders: Discharge Order (Routine); Ordered 05/21/20 Ordered By: Shoaib Daniel Activity on Discharge: As tolerated Stand Alone Forms: Patient Portal Discharge page Care Plan Goals: recovery Health Concerns: mucus plugs, right pleural effusion, recent covid Plan of Treatment: chest physio, follow up pulm, steroid course, 14 days augmentin
[2020-05-21 11:35] LABS: Glucose, Whole Blood 292 mg/dL (60-115)
--- NOTE | 2020-05-21 11:43 | MHC.CM.PN ---
Patient has been medically cleared for dc to SNF today. Patient will return to [facility] today at 1PM, via [facility]. Patient is aware of and in agreement with the dc plan.Second IMM has been addressed today with Patient and the original has been given to her and a copy has been placed on the chart. At Patient's request, CM has informed Son/Faisal @ [phone] of today's dc.
== END 2020-05-21 13:30 | disposition skilled nursing facility (03) | DRG 166 ==
LOC: HO.ED 15:33 → HO.EDOVER 17:57 → HO.IMC 19:14
PROVIDERS: Hospitalist; Admitting Provider Internal Medicine; Emergency Provider Emergency Medicine; PCP Internal Medicine; Visit Provider Internal Medicine
PROC: 0BJ08ZZ Inspection of Tracheobronchial Tree, Via Natural or Artificial Opening Endoscopic (ICD-10-PCS; CPT 31622; principal; 2020-05-18 12:00)
DX: J69.0 Pneumonitis due to inhalation of food and vomit (principal); J96.21 Acute and chronic respiratory failure with hypoxia; J96.22 Acute and chronic respiratory failure with hypercapnia; I13.0 Hypertensive heart and chronic kidney disease with heart failure and stage 1 through stage 4 chronic kidney disease, or unspecified chronic kidney disease; N18.4 Chronic kidney disease, stage 4 (severe); I50.32 Chronic diastolic (congestive) heart failure; N17.9 Acute kidney failure, unspecified; J44.1 Chronic obstructive pulmonary disease with (acute) exacerbation; J98.19 Other pulmonary collapse; J98.11 Atelectasis; E11.22 Type 2 diabetes mellitus with diabetic chronic kidney disease; G47.33 Obstructive sleep apnea (adult) (pediatric); I48.91 Unspecified atrial fibrillation; E78.5 Hyperlipidemia, unspecified; Z20.822 Contact with and (suspected) exposure to COVID-19; Z86.16 Personal history of COVID-19; Z87.891 Personal history of nicotine dependence; Z79.4 Long term (current) use of insulin; Z79.51 Long term (current) use of inhaled steroids; Z79.899 Other long term (current) drug therapy
CPT/HCPCS: 32557; 36415; 71045; 71046; 71250; 80048; 80076; 80202; 82803; 82945; 82947; 83605; 83615; 83690; 83735; 83880; 84157; 84484; 85025; 85610; 85730; 86850; 86900; 86901; 86923; 87040; 87070; 87071; 87073; 87102; 87106; 87116; 87205; 87635; 88112; 89051; 93005; 94640; 96365; 96367; 96375; 99285; 99291; J0171; J0330; J2270; J2543; J2930; J3010; J3370; P9016